=== PATIENT | male | born 1935 | race Caucasian/White ===

== ENCOUNTER 2017-01-25 20:11 | Inpatient (IN) ==
[2017-01-25] MEDS ORDERED: ASPIRIN PO STA (20:19)
[2017-01-25] MEDS ORDERED: CARDIZEM IV ONE (20:34)
--- NOTE | 2017-01-25 20:40 | PROVIDER DOCUMENTATION ---
HPI-Cardiac General - General Chief Complaint: B/P Problems Stated Complaint: ELEVATED BP Time Seen by Provider: 01/25/17 20:35 Allergies/Adverse Reactions: Patient Allergies Allergy/AdvReac Type Severity Reaction Status Date / Time niacin Allergy Intermediate burning Verified 01/25/17 20:49 Home Medications: Home Medication List Medication Instructions Recorded Confirmed Last Taken Type Diltiazem HCl [Diltiazem ER] 120 mg PO DAILY 08/03/16 01/25/17 01/25/17 History Losartan [Cozaar] 100 mg PO QPM 08/03/16 01/25/17 01/25/17 History Oxycodone HCl/Acetaminophen 0.5 each PO Q4H PRN PRN 08/03/16 01/25/17 01/25/17 History [Percocet 10-325 mg Tablet] Pantoprazole [Protonix] 40 mg PO DAILY 01/25/17 01/25/17 01/25/17 History - History of Present Illness-Cardiac Nature of Presenting Problem: 81 yom c/o chest pain for 45 min. Pt has hx AFib, aortic valve replacement, mitral valve repair. Pt was jsut sitting when chest pain started. Pt c/o pressure in his chest. Pt denies any, SOB, N/V. Quality of Pain: reports: pressure Severity in ED: mild Onset/Duration: 1/2 hour ago Timing: still present Context/Activities at Onset: reports: none Modifying Factors: improves with: nothing Palpitation Quality: fast/pounding heart beat History of arrythmia: reports: A-Fib Recent use of:: reports: no stimulants Aspirin Treatment Today: reports: no aspirin today, provided by ED Similar Symptoms Previously?: Yes Recently Seen Here or By Another Healthcare Provider: No Review of Systems - Adult - REVIEW OF SYSTEMS - ADULT Constitutional: reports: see HPI Eyes: reports: no symptoms reported Ears, Nose, Mouth & Throat: reports: no symptoms reported Cardiovascular: reports: see HPI, chest pain, edema, irregular heart rate Respiratory: reports: no symptoms reported Gastrointestinal: reports: no symptoms reported Genitourinary: reports: no symptoms reported Musculoskeletal: reports: no symptoms reported Integumentary: reports: no symptoms reported Neurological: reports: no symptoms reported All Other Systems: Reviewed and Negative Past History - Adult - PAST MEDICAL HISTORY-ADULT Review of Records: reports: Old Records Reviewed, Nursing Assessment Review, Medications Reviewed, Social history reviewed & non-contributory. Cardiovascular: reports: A-Fib, HTN, heart valve problem, hyperlipidemia Respiratory: reports: asthma Gastrointestinal: reports: GERD - IMMUNIZATION STATUS Childhood Immunizations: See Nurse Assessment Flu Vaccine: See Nurse Assessment - SOCIAL HISTORY Smoking: quit greater than 1 year Physical Exam-General - PHYSICAL EXAM-ADULT Initial Vital Signs Reviewed: Yes - CONSTITUTIONAL General Appearance: appears well, alert, no apparent distress - EYES Eyes: PERRL/EOMI, pink conjunctivae - HEAD, EARS, NOSE, MOUTH & THROAT HENMT: normocephalic/atraumatic, moist mucous membranes, normal ENT inspection - NECK Neck: non-tender, full range of motion, supple - RESPIRATORY Respiratory: chest non-tender, lungs clear, normal breath sounds, no pleuratic chest pain, no respiratory distress, no accessory muscle use - CARDIOVASCULAR Cardiovascular: normal peripheral pulses, no gallop, no JVD, no murmur, tachycardia, irregularly irregular - GASTROINTESTINAL (ABDOMEN) Abdominal Exam: normal bowel sounds, non tender, soft, no organomegaly, no pulsatile mass - LYMPHATIC Lymphatic: no adenopathy - MUSCULOSKELETAL Back Exam: normal inspection, no CVA tenderness, no vertebral tenderness Extremity: normal range of motion, non-tender, normal gait, normal inspection, no calf tenderness, normal capillary refill, pelvis stable, pedal edema - SKIN Integumentary: normal color, normal turgor, warm/dry - NEUROLOGIC Neurologic: grossly normal - PSYCHIATRIC Psych/Mental Status: oriented x 3 Progress - PLAN OF CARE/RESULTS Progress/Plan/Lab Results: Vital Signs - 8 hr 01/25/17 20:20 01/25/17 20:54 01/25/17 21:05 Pulse Rate 125 H 142 H 97 H Respiratory Rate 18 16 20 Blood Pressure 151/123 151/123 157/95 O2 Sat by Pulse Oximetry 96 97 95 01/25/17 22:00 01/25/17 22:03 Pulse Rate 90 92 H Respiratory Rate 18 23 Blood Pressure 159/101 139/98 O2 Sat by Pulse Oximetry 97 96 Laboratory Results - last 24 hr 01/25/17 01/25/17 01/25/17 20:15 20:15 20:15 WBC 10.78 RBC 5.50 Hgb 15.7 Hct 46.4 MCV 84.4 MCH 28.5 MCHC 33.8 RDW Std Deviation 14.2 Plt Count 182 MPV 13.0 H Immature Gran % (Auto) 0.3 Neut % (Auto) 49.3 Lymph % (Auto) 34.9 Maury % (Auto) 10.2 H Eos % (Auto) 4.8 Baso % (Auto) 0.5 Immature Gran # (Auto) 0.03 Neut # (Auto) 5.32 Lymph # (Auto) 3.76 H Maury # (Auto) 1.10 H Eos # (Auto) 0.52 Baso # (Auto) 0.05 PT INR PTT (Actin FS) D-Dimer 0.40 Sodium 141 Potassium 3.6 Chloride 98 Carbon Dioxide 28 Anion Gap 15 BUN 19 Creatinine 1.0 Estimated GFR/1.73 m2 > 60 BUN/Creatinine Ratio 19 Glucose 145 H Calculated Osmolality 286 Calcium 9.7 Magnesium 2.0 Total Bilirubin 0.67 AST 12 ALT 14 Alkaline Phosphatase 121 Creatine Kinase 51 Troponin T Iad-T-Imbstobvplw Pept Total Protein 7.8 Albumin 4.3 Globulin 3.5 Albumin/Globulin Ratio 1.2 01/25/17 01/25/17 01/25/17 20:15 20:15 20:15 WBC RBC Hgb Hct MCV MCH MCHC RDW Std Deviation Plt Count MPV Immature Gran % (Auto) Neut % (Auto) Lymph % (Auto) Maury % (Auto) Eos % (Auto) Baso % (Auto) Immature Gran # (Auto) Neut # (Auto) Lymph # (Auto) Maury # (Auto) Eos # (Auto) Baso # (Auto) PT 10.6 INR 1.01 PTT (Actin FS) 30.2 D-Dimer Sodium Potassium Chloride Carbon Dioxide Anion Gap BUN Creatinine Estimated GFR/1.73 m2 BUN/Creatinine Ratio Glucose Calculated Osmolality Calcium Magnesium Total Bilirubin AST ALT Alkaline Phosphatase Creatine Kinase Troponin T < 0.010 [id number] Pept 273 Total Protein Albumin Globulin Albumin/Globulin Ratio Orders Category Date Time Status Cardiac Monitoring DIRECTED Care 01/25/17 20:19 Active Saline Loc NOW Care 01/25/17 20:19 Active CHEST-2 VIEWS [RAD] Stat Exams 01/25/17 20:19 Taken CBC WITH ELECTRONIC DIFF [HEME] Stat Lab 01/25/17 20:15 Completed CK PROFILE [SP CHEM] Stat Lab 01/25/17 20:15 Completed COMPREHENSIVE METABOLIC PANEL [CHEM] Stat Lab 01/25/17 20:15 Completed D-DIMER [CHEM] Stat Lab 01/25/17 20:15 Completed MAGNESIUM [CHEM] Stat Lab 01/25/17 20:15 Completed PRO B-NATRIURETIC PEPTIDE Stat Lab 01/25/17 20:15 Completed PROTIME WITH INR [COAG] Stat Lab 01/25/17 20:15 Completed PTT [COAG] Stat Lab 01/25/17 20:15 Completed TROPONIN T Stat Lab 01/25/17 20:15 Completed Aspirin Med 01/25/17 20:19 Discontinued 325 mg PO STAT STA Diltiazem [Cardizem] Med 01/25/17 20:34 Discontinued 10 mg IV NOW ONE EKG [EKG] Stat Ther 01/25/17 20:16 Ordered Result Diagrams: 01/25/17 20:15 01/25/17 20:15 - XRAY 1 XRAY Study: Chest Impression: See EMR Report (Normal per radiologist) - CONSULTS/PCP/HOSPITALIST Notification #1 *Consult/PCP/Hospitalist*: akinsoto Time Discussed: 21:46 Consult Disposition: Will see in ED, Admit Departure - Departure Time of Disposition Decision: 21:46 DIAGNOSIS: Atrial fibrillation Qualifiers: Atrial fibrillation type: chronic Qualified Code(s): I48.2 - Chronic atrial fibrillation Chest pain Qualifiers: Chest pain type: unspecified Qualified Code(s): R07.9 - Chest pain, unspecified Disposition: ADMITTED INPATIENT 09 Certified Medical Emergency: Emergent Condition: Stable Referrals and Follow-Ups: Raymond Flores MD [Primary Care Provider] - Attestation - Physician/ KAILASH Attestation Patient care was provided by Advanced Practice Provider:: Yes Advanced Practice Provider:: Maurice Bear Advanced Practice Provider documentation review:: The Mid-level provider documentation, treatment plan and medical decision making was reviewed by the physician who agrees with all treatment and medical decision making by the MLP.
[2017-01-25 20:53] LABS: MANUAL DIFF NEEDED? NO
[2017-01-25 21:00] LABS: BASO% 0.5 % (0.0-0.8); EOS# 0.52 X1000 (0.0-0.7); EOS% 4.8 % (0.0-10.0); HEMATOCRIT 46.4 % (42.0-52.0); HEMOGLOBIN 15.7 g/dL (14.0-18.0); IMM GRAN# 0.03 X1000 (0.0-0.04); IMM GRAN% 0.3 % (0.0-0.5); LYMPH# 3.76 X1000 (1.2-3.4); LYMPH% 34.9 % (20.5-51.1); MCH 28.5 PG (27-31); MCHC 33.8 g/dL (33-37); MCV 84.4 FL (81-99); MONO% 10.2 % (1.7-9.3); NEUT% 49.3 % (42.2-75.2); PLT 182 X1000 (130-400)
[2017-01-25 21:06] LABS: INR 1.01; PROTIME 10.6 Seconds (9.2-11.7); PTT 30.2 Seconds (22.0-36.0)
[2017-01-25 21:14] LABS: AGAP 15; ALBUMIN 4.3 g/dL (3.5-5.0); ALKALINE PHOSPHATASE 121 U/L (32-122); BUN 19 mg/dL (8-22); CALCIUM 9.7 mg/dL (8.8-10.2); CHLORIDE 98 mmol/L (98-107); CK PROFILE 51 U/L (24-204); COSMO 286; GOT 12 U/L (10-34); GPT 14 U/L (10-44); POTASSIUM 3.6 mmol/L (3.5-5.1); SODIUM 141 mmol/L (136-145); TCO2 28 mmol/L (25-35); TOTAL BILIRUBIN 0.67 mg/dL (0.20-1.00); TOTAL PROTEIN 7.8 g/dL (6.3-8.3)
[2017-01-26] MEDS ORDERED: ZOFRAN IV PRN (00:14)
[2017-01-26] MEDS ORDERED: TYLENOL PO PRN (00:14)
[2017-01-26] MEDS ORDERED: PERCOCET-10 PO PRN (00:14)
[2017-01-26] MEDS: CARDIZEM CD PO SCH ×2 (00:49→09:35)
[2017-01-26] MEDS ORDERED: PNEUMOVAX 23 IM ONE (05:13)
[2017-01-26 05:30] LABS: MANUAL DIFF NEEDED? NO
--- NOTE | 2017-01-26 05:34 | EKG Report ---
Test Performed on : 01/25/2017 8:21:17 PM Test Reason : palpitaions Blood Pressure : / mmHG Vent. Rate : 137 BPM Atrial Rate : 300 BPM P-R Int : 000 ms QRS Dur : 074 ms QT Int : 306 ms P-R-T Axes : 000 029 185 degrees QTc Int : 462 ms Atrial flutter. with variable AV block. Left ventricular hypertrophy with repolarization abnormality Cannot rule out Septal infarct , age undetermined Abnormal ECG When compared with ECG of 03-AUG-2016 09:35, Atrial flutter. has replaced Sinus rhythm. Vent. rate has increased BY 72 BPM Minimal criteria for Septal infarct are now present ST now depressed in Inferior leads ST now depressed in Lateral leads Unconfirmed Result
[2017-01-26 05:36] LABS: BASO% 0.4 % (0.0-0.8); EOS% 5.3 % (0.0-10.0); HEMATOCRIT 44.6 % (42.0-52.0); HEMOGLOBIN 14.9 g/dL (14.0-18.0); LYMPH# 3.06 X1000 (1.2-3.4); LYMPH% 32.6 % (20.5-51.1); MCH 28.6 PG (27-31); MCHC 33.4 g/dL (33-37); MCV 85.6 FL (81-99); MONO# 0.98 X1000 (0.11-0.59); MONO% 10.4 % (1.7-9.3); MPV 13.2 FL (7.4-10.4); NEUT% 51.3 % (42.2-75.2); PLT 178 X1000 (130-400); RBC 5.21 XMIL (4.7-6.1)
[2017-01-26 05:55] LABS: AGAP 14; BUN 22 mg/dL (8-22); CALCIUM 9.3 mg/dL (8.8-10.2); CHLORIDE 101 mmol/L (98-107); COSMO 291; MAGNESIUM 2.1 mg/dL (1.5-2.7); POTASSIUM 3.6 mmol/L (3.5-5.1); SODIUM 143 mmol/L (136-145); TCO2 28 mmol/L (25-35)
--- NOTE | 2017-01-26 06:04 | HISTORY AND PHYSICAL ---
PRIMARY CARE PROVIDER: Dr. Raymond Flores. KOSHER DIETARY SERVICE MANAGER: Was previously Dr. Mccurdy. CHIEF COMPLAINT: Palpitations and chest pain. HISTORY OF PRESENT ILLNESS: Mr. Kathleen is a 81-year-old male, who has a past medical history most notable for atrial fibrillation, hypertension, aortic valve replacement, and mitral valve repair. He presented to the ER this evening at 8 p.m., with complaints of chest pain and palpitations. He reports that he was sitting on the couch, when he began feeling funny. He could feel his heart racing, and did have some tightness across his entire chest, left and right. Patient's , who is a registered nurse, states that his heart rate was very elevated upon palpation. Patient did report that during this time, he did try to obtain his blood pressure on a home monitor, though was unable to do so. He denied any dizziness, lightheadedness, shortness of breath, nausea or vomiting, or indigestion with his chest pain. On arrival to the ER, the patient's EKG showed atrial fibrillation, at a rate of 137. He was given a one time dose of 10 mg of Cardizem IV push. At this time, he has converted to a sinus rhythm. He states also that his previous chest tightness that he reported has gone as well. He has not had any recurrent episodes of this. At this time, we will admit him for further evaluation of his atrial fibrillation, and place him for a cardiology consult in the morning. REVIEW OF SYSTEMS: A 12-point review of systems was conducted with the patient. All were negative, except for pertinent positives mentioned in the above HPI. PAST MEDICAL HISTORY: 1. Atrial fibrillation. 2. Hypertension. 3. Peripheral vascular disease. 4. Chronic back pain and left hip pain, secondary to a previous left pelvic fracture. 5. Gastroesophageal reflux disease. PAST SURGICAL HISTORY: 1. Aortic valve replacement due to aortic stenosis. 2. Mitral valve repair, secondary to mitral regurgitation and leaflet abnormality. 3. Bilateral renal artery stents. 4. Bilateral cataract surgery. 5. Open reduction and internal fixation of left pelvis. SOCIAL HISTORY: The patient reports that he was a 2 pack per day smoker for approximately 30 years, and quit smoking in 1984. He denies any alcohol or illicit drug use, though does report that he uses hemp oil for his chronic left hip pain. FAMILY HISTORY: Positive for asthma in his mother. His father has a history of coronary artery disease, as well as had to have a mitral valve repair secondary to rheumatic heart disease. He also has a sister who had a mitral valve repair secondary to rheumatic heart disease as well. ALLERGIES: Patient reports allergy to niacin. HOME MEDICATIONS: 1. Protonix 40 mg p.o. daily. 2. Percocet 10 mg. The patient takes half a tablet every 4 hours as needed for pain. 3. Cozaar 100 mg p.o. q.p.m. 4. Diltiazem extended release 120 mg p.o. daily. 5. Lasix 20 mg p.o. daily as needed. Also, there is a question to whether or not the patient is still currently taking Xarelto. We have asked that his bring his medication bottles in the morning so that we can update and confirm his home medication list. DIAGNOSTIC DATA AND LABORATORY RESULTS: White blood cell count 10.7, hemoglobin 15.7, hematocrit 46.4, platelet count is 182,000. PT 10.6, INR 1.01, PTT 30.2, D-dimer 0.4. Sodium 141, potassium 3.6, chloride 98, bicarbonate 28, BUN 19, creatinine 1, glucose 145, calcium 9.7 , magnesium 2. Liver function tests are within normal limits. CK 51. Troponin was less than 0.01. ProBNP was 273. Chest x-ray shows no acute abnormalities. We are awaiting the official radiology over-read. EKG showed atrial fibrillation, at a rate of 137, QTc was 462. PHYSICAL EXAMINATION: VITAL SIGNS: Heart rate 84, respirations 19, blood pressure 139/98, oxygen saturation 96% on room air. GENERAL: Mr. Kathleen is a pleasant 81-year-old male who is resting comfortably in the ER stretcher. He was awake, alert, and able to answer all questions appropriately. HEENT: Head is atraumatic, normocephalic. Pupils are equal, round, reactive to light for 3 mm bilaterally and brisk. Oral mucosa was moist. Oropharynx clear. NECK: Supple. Trachea midline. No JVD noted. No carotid bruits noted on auscultation bilaterally. CARDIOVASCULAR: Patient has normal S1, S2. There is a systolic murmur noted as well. At this time, patient's heart rate is of regular rate and rhythm. PULMONARY: Patient has symmetrical chest expansion bilaterally. Lung sounds are clear to auscultation in bilateral lung humphrey. ABDOMEN: Soft, nontender, nondistended. Bowel sounds are present in all 4 quadrants. EXTREMITIES: No cyanosis, clubbing, or edema noted. Pulse, motor, and sensory were intact in all extremities. Pedal pulses were 3+ bilaterally. SKIN: [place], warm, dry, and intact. No lesions or sores noted. NEUROLOGICAL: Patient is alert, oriented x4. Cranial nerves 2-12 are grossly intact. ASSESSMENT AND PLAN: 1. Atrial fibrillation. At this time, the patient has converted to a sinus rhythm. We will increase his diltiazem extended release 120 mg to twice a day, and give him his first dose tonight. There was question to whether or not the patient currently still takes Xarelto, given his history of atrial fibrillation. We will go ahead and place him on Xarelto 20 mg p.o. daily. I have placed a consult with cardiology, and await their evaluation and further recommendations, and monitor his cardiac status closely. 2. Hypertension. Will continue with his prescribed blood pressure medicines of Cardizem, as well as Cozaar. 3. Chronic pain. Will continue with the patient's Percocet q.4 hours p.r.n. as needed. 4. Gastroesophageal reflux disease. We will continue the patient's Protonix [address] him on CICU with telemetry. He will have vital signs q.4 hours. DVT prophylaxis is currently provided with Xarelto. We will do strict intake and output. He will be on a heart- healthy diet. We will do a series of cardiac enzymes and repeat an EKG in the morning, though his first set of enzymes were negative and the patient has not been reporting any chest pain at this time. He will also be placed on telemetry as well. Further orders and recommendations pending hospital course, diagnostic studies, and physician evaluation. Dictated by MARCELINO Valdez for Carolynn Barber MD Patient seen and examined by me;plan discussed with STREET SWEEPER. cc: MD Raymond Sweeney MD MTDD
[2017-01-26] MEDS ORDERED: PRILOSEC PO SCH (07:00)
--- NOTE | 2017-01-26 07:12 | EKG Report ---
Test Performed on : 01/26/2017 06:50:57 AM Test Reason : Atrial Fibrillation Blood Pressure : / mmHG Vent. Rate : 068 BPM Atrial Rate : 068 BPM P-R Int : 178 ms QRS Dur : 090 ms QT Int : 416 ms P-R-T Axes : 027 021 140 degrees QTc Int : 442 ms Normal sinus rhythm. Left ventricular hypertrophy with repolarization abnormality Abnormal ECG When compared with ECG of 25-JAN-2017 20:21, (Unconfirmed) Sinus rhythm. has replaced Atrial flutter. Vent. rate has decreased BY 69 BPM Minimal criteria for Septal infarct are no longer present ST no longer depressed in Inferior leads ST no longer depressed in Lateral leads Confirmed by Syeda CHERRY, Tung Genao ([id number]) on 01/26/2017 6:52:43 PM
--- NOTE | 2017-01-26 08:19 | Diag Imaging Result Document ---
PROCEDURE NAME: CHEST-2 VIEWS - 01/25/2017 TWO VIEWS OF THE CHEST: FINDINGS: There are sternotomy wires. There is an aortic valve prosthesis. There is some fibrotic appearing opacity in the lung bases which has not changed since 08/03/2016. IMPRESSION: Stable chest.
[2017-01-26] MEDS ORDERED: ELIQUIS PO SCH (09:15)
--- NOTE | 2017-01-26 10:09 | CONSULTATION ---
DATE OF CONSULTATION: 01/26/2017 REQUESTING PHYSICIAN: Hospitalist Service REASON FOR CONSULTATION: Atrial fibrillation with rapid response. HISTORY OF PRESENT ILLNESS: Mr. Kathleen is a 81-year-old male who was normally followed by Dr. Mccurdy. He is a patient of Dr. Raymond Flores. He presented to the Emergency Room yesterday, 01/25/2017, at about 8:00 p.m. with complaints of feeling chest tightness and palpitations. Upon presentation he was found in atrial fibrillation with a rapid response. He was given Cardizem and eventually he converted back to Normal Sinus rhythm. EKG done at 8 o'clock this morning shows that he is in sinus rhythm and he is not having any more complaints. PAST MEDICAL HISTORY: His past history is positive for a brief episode of paroxysmal atrial fibrillation in the past. He has had hypertension. He has severe valvular disease involving the aortic valve and the mitral valve. He has had renal artery stenosis. He has had gastric reflux. PAST SURGICAL HISTORY: Positive for open heart surgery which was performed at [facility] in 2012. At that time they replaced the aortic valve with a pericardial magna 21 mm bioprosthesis on 03/09/2013. They also did a repair of the mitral valve. The patient has had stents to the renal arteries. The patient has had cataract surgery. He has also had a fractured pelvis in the past. SOCIAL HISTORY: He is retired from [employer] in 1992. He quit smoking in 1984. for 63 years. He has four grown children. FAMILY HISTORY: Positive for coronary heart disease. ALLERGIES: He is allergic to niacin. HOME MEDICATION: His home medications at the time of this admission include: Toprol XL 25 mg daily, Cardizem CD 240 mg daily, Protonix 40 mg daily, losartan 100 mg daily, temazepam 15 mg daily, and oxycodone. REVIEW OF SYSTEMS: He is limited to ambulate because of chronic back discomfort. No other issues. No chest pains. No pervious diagnosis of significant coronary artery disease. He has had a heart cath in the past that has shown mild disease. PHYSICAL EXAMINATION: VITAL SIGNS: Today his blood pressure is 129/71, temperature 98.1, pulse 69, and respirations 12. GENERAL: He is awake, alert, oriented, and in no distress. HEENT: Unremarkable. CHEST: Clear to auscultation and percussion. CARDIOVASCULAR: Heart sounds are regular and rhythmic. No gallop or murmur. ABDOMEN: Nontender. No masses. No hepatomegaly. EXTREMITIES: The extremities show decreased pulses. No edema. NEUROLOGICAL: He moves all four extremities and follows commands. LABORATORY DATA: His chest x-ray on 01/25/2017 showed a stable chest. His blood work shows a white count of 9,380, hemoglobin 14.9, and hematocrit 44.6. PT and PTT are normal. D-dimer is normal. Sodium, potassium, BUN, and creatinine are normal. Troponin was done twice and was negative. Pro BNP is normal. IMPRESSION: 1. Patient presenting with paroxysmal atrial fibrillation. He has converted to sinus rhythm. 2. History of severe valvular disease status-post aortic valve replacement and mitral valve repair. 3. History of mild coronary artery disease by heart catheterization in 2012. 4. History of vascular disease involving the renal arteries status-post stents. 5. History of a broken pelvis. RECOMMENDATIONS: At this point in time he is stable and back in sinus rhythm. I would suggest to offer a long-term anticoagulant like Eliquis or Xarelto. He may check with his pharmacist and see if that medication would be covered and if not we can fall back on warfarin and monitor him at the office. At this point in time no further testing appears to be necessary. He has ruled out for a myocardial infarction. He is not having any ongoing chest pains. I do not recommend any further testing. We will arrange for a follow-up at my office and further intervention will be done after the office follow up. Please call me if you have any questions pertaining to this evaluation. cc: Jlaeel Carmona MD MTDBryanna
[2017-01-26 11:12] VITALS: BP 140/96
[2017-01-26] MEDS ORDERED: XARELTO PO SCH (17:00)
[2017-01-26] MEDS ORDERED: COZAAR PO SCH (21:00)
--- NOTE | 2017-01-27 11:55 | DISCHARGE SUMMARY ---
ADMISSION DATE: 01/25/2017 DISCHARGE DATE: 01/26/2017 CONSULTATIONS: Dr. Carmona of Cardiology. PERTINENT PROCEDURES: 1. EKG on admission showed atrial flutter with a variable AV block, left ventricular hypertrophy with repolarization abnormality at a rate of 137. 2. Followup EKG showed normal sinus rhythm with LVH. DISCHARGE DIAGNOSES: 1. Paroxysmal atrial fibrillation on admission, now converted to sinus rhythm. The patient is being discharged on Eliquis and Cardizem. He will follow up with Dr. Carmona as well as his primary care physician, Dr. Raymond Flores. 2. Hypertension. Continue home medications. 3. Chronic pain. Continue home medications. 4. Gastroesophageal reflux disease. Continue with patient's home proton pump inhibiter. 5. Coronary artery disease. Stable. Patient was ruled out for myocardial infarction with cardiac enzymes. HOSPITAL COURSE: Ms. Kathleen is a 81-year-old male who has a past medical history of atrial fibrillation, hypertension, aortic valve replacement, and mitral valve repair, who presented to the ED with complaints of chest pain and palpitations. He reports sitting on the couch when he began to feel funny. He could feel his heart racing. He did have some tightness across his entire chest, left and right. EKG that was done in the ED showed atrial fibrillation with a rate of 137. The patient was given an IV bolus of Cardizem and patient converted to sinus rhythm. His chest tightness resolved. Patient was admitted for further evaluation of his atrial fibrillation with a Cardiology consult. Dr. Carmona suggested patient be placed on long-term anticoagulation such as Eliquis or Xarelto and that, at this point, since the patient converted to normal sinus rhythm, no further testing appeared to be necessary. He was ruled out for [place] with cardiac enzymes. He was not having any ongoing chest pain. Followup will be made with Dr. Carmona on an outpatient basis and any further intervention will be done after the office followup. Patient is being discharged home today. VITAL SIGNS: Temperature is 97.7 degrees, heart rate 77, respirations 14, blood pressure 140/96, O2 is 98% on room air. DISCHARGE MEDICATIONS: 1. [place] 5 mg p.o. b.i.d. 2. Cardizem 240 mg p.o. daily. 3. Cozaar 100 mg p.o. q.p.m. 4. Percocet 10/325 one-half tablet p.o. q.4 hours p.r.n. pain. 5. Protonix 40 mg p.o. daily. 6. Donepezil 15 mg p.o. DISCHARGE DIET: Healthy Heart. FOLLOWUP: Patient is being discharged home with his . He can follow up with his primary care physician, Dr. Raymond Flores, as well as Dr. Carmona with Cardiology. Patient can return to the ED for any worsening of symptoms. He has been educated for the new drug that he will be started on, Eliquis, and signs and symptoms to watch out for, bleeding. The patient can return to the ED for any worsening of symptoms. DISCHARGE TIME: Thirty minutes. Dictated by MARCELINO Juarez for Mario Brown MD cc: MD Raymond Tom MD Luis N. Villanueva, MD
== END 2017-01-26 16:05 | disposition home or self-care (01) ==
LOC: ED 20:11 → SUATTDRO 23:22 → 3S 23:22
PROVIDERS: ATTEND Internal Medicine

== ENCOUNTER 2019-01-22 09:26 | Inpatient (IN) ==
[2019-01-22 11:11] LABS: BASO# 0.03 X1000 (0.0-0.2); BASO% 0.3 % (0.0-0.8); EOS# 0.38 X1000 (0.0-0.7); EOS% 3.2 % (0.0-10.0); HEMATOCRIT 48.3 % (42.0-52.0); HEMOGLOBIN 15.8 g/dL (14.0-18.0); IMM GRAN# 0.03 X1000 (0.0-0.04); IMM GRAN% 0.3 % (0.0-0.5); LYMPH# 2.46 X1000 (1.2-3.4); LYMPH% 20.5 % (20.5-51.1); MCH 26.6 PG (27-31); MCHC 32.7 g/dL (33-37); MCV 81.2 FL (81-99); MONO# 1.15 X1000 (0.11-0.59); MONO% 9.6 % (1.7-9.3); MPV 13.3 FL (7.4-10.4); NEUT# 7.95 X1000 (1.4-6.5); NEUT% 66.1 % (42.2-75.2); PLT 174 X1000 (130-400); RBC 5.95 XMIL (4.7-6.1); RDW 15.8 % (11.5-14.5)
[2019-01-22 11:14] LABS: AGAP 13; ALB/GLOB RATIO 1.3; ALBUMIN 4.4 g/dL (3.5-5.0); ALKALINE PHOSPHATASE 115 U/L (32-122); AMYLASE 22 U/L (20-200); BUN 17 mg/dL (8-22); CALCIUM 10.5 mg/dL (8.8-10.2); CHLORIDE 100 mmol/L (98-107); COSMO 287; ESTIMATED GFR > 60; GLUCOSE 138 mg/dL (70-104); GOT 11 U/L (10-34); GPT 10 U/L (10-44); LIPASE 27 U/L (13-60); POTASSIUM 4.1 mmol/L (3.5-5.1); SODIUM 142 mmol/L (136-145); TCO2 29 mmol/L (25-35); TOTAL BILIRUBIN 0.59 mg/dL (0.20-1.00); TOTAL PROTEIN 7.7 g/dL (6.3-8.3)
--- NOTE | 2019-01-22 11:23 | Diag Imaging Result Doc PS360 ---
FLAT/UPRIGHT ABD/1 VIEW CHEST - 01/22/2019 INDICATION: ruq pain TECHNIQUE: COMPARISON: 08/07/2018 FINDINGS: Stable sternotomy changes. Heart size and pulmonary vascularity is normal. No infiltrates or edema. There is a nonobstructive bowel gas pattern. No free air or abnormal calcifications. IMPRESSION: No acute process. Electronically signed by Jude Durand 01/22/2019 11:21 AM
[2019-01-22] MEDS ORDERED: DILAUDID IV ONE (12:01)
[2019-01-22] MEDS ORDERED: ZOFRAN IV ONE (12:01)
--- NOTE | 2019-01-22 14:39 | Diag Imaging Result Doc PS360 ---
CT ABD/PELVIS W/IV CONT ONLY - 01/22/2019 INDICATION: ruq pain COMPARISON: 08/03/2016 FINDINGS: There is some stable chronic atelectasis at the posterior surface of the right lower lobe. No new infiltrates. There are gallstones in the gallbladder. The gallbladder is distended and there is some wall thickening. No biliary dilation. Stable benign cysts in the liver. The pancreas, spleen, adrenals, and kidneys are normal. No bowel obstruction or inflammation. Urinary bladder, prostate, and rectum are normal. There are numerous diverticula of the sigmoid colon. 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 No aneurysm or dissection. Normal appendix. Stable stents in the renal artery origins. Stable old deformities of the pelvis. There are moderate degenerative changes of the spine. No acute or suspicious bony lesion. IMPRESSION: Findings consistent with cholecystitis. This report was discussed with Dr. Juárez on 01/22/2019 at 2:30 PM and was readback. This exam was performed using automated exposure control, adjustment of mA or kV according to patient size, and/or use of iterative reconstruction technique Electronically signed by Jude Durand 01/22/2019 2:37 PM
--- NOTE | 2019-01-22 14:48 | PROVIDER DOCUMENTATION ---
This chart was entered by Belkys Corley Scribe, acting as scribe for Adrian Juárez DO. HPI-Abdominal Pain/GI Problem - General Chief Complaint: Abdominal Pain Stated Complaint: N/V STOMACH PAIN HIGH BP Time Seen by Provider: 01/22/19 09:37 Source: patient Allergies/Adverse Reactions: Patient Allergies Allergy/AdvReac Type Severity Reaction Status Date / Time niacin Allergy Intermediate burning Verified 01/22/19 09:32 Home Medications: Home Medication List Medication Instructions Recorded Confirmed Last Taken Type Losartan [Cozaar] 100 mg PO QPM 08/03/16 08/07/18 01/25/17 History Diltiazem HCl [Diltiazem 24Hr ER 240 mg PO DAILY #60 01/26/17 08/07/18 01/25/17 Rx ([place])] Cephalexin [Keflex] 500 mg PO 4XDAY #20 cap 08/07/18 Unknown Rx Diltiazem HCl [Cartia Xt] 120 mg PO DAILY 08/07/18 08/07/18 Unknown History Diltiazem HCl [Dilt-Xr] 240 mg PO DAILY 08/07/18 08/07/18 Unknown History Metformin HCl 500 mg PO BID #30 tab 08/07/18 Unknown Rx - History of Present Illness-ABD Nature of Presenting Problems: 83 yom presents to the ed with c/o RUQ pain radiaiting to rt chest wall onset 1 week prior. pt sts pain is intermittent and has had n/v x2 during the week. pt on exam is nontoxic in appearance Abdominal Pain Onset Location: reports: RUQ Pain Radiation: reports: chest (rt chest wall) Quality of Pain: reports: cramping Severity in ED: reports: moderate Onset/Duration: reports: 1 week ago Timing: reports: still present, intermittent Activities at Onset: reports: light activity Exposure to sick contacts?: No Modifying Factors: improves with: nothing Associated Symptoms: reports: chest pain (rt sided chest wall), nausea, vomiting . denies: back/neck pain, diarrhea, dizziness, fever/chills, headaches, shortness of breath Last BM: last night Dark Stools Present?: reports: none noticed Rectal Bleeding: reports: none # of Diarrhea Episodes: 0 Rectal Pain: reports: none # of Vomiting Episodes: 2 Emesis Description: reports: other (food) Bruising or Bleeding Gums?: No Similar Symptoms Previously?: No Recently seen or treated by another doctor?: No Review of Systems - Adult - REVIEW OF SYSTEMS - ADULT Constitutional: denies: chills, fever Eyes: reports: no symptoms reported Ears, Nose, Mouth & Throat: reports: no symptoms reported Cardiovascular: reports: see HPI, chest pain (r sided chest wall). denies: palpitations, syncope Respiratory: denies: cough, shortness of breath, wheezing Gastrointestinal: reports: see HPI, abdominal pain (ruq), nausea, vomiting (x2). denies: hematemesis, diarrhea Genitourinary: reports: no symptoms reported Musculoskeletal: denies: back pain, neck pain Integumentary: reports: no symptoms reported Neurological: denies: dizziness/vertigo, headache/migraines Psychiatric: reports: no symptoms reported Endocrine: reports: no symptoms reported Hematologic/Lymphatic: reports: no symptoms reported Allergic/Immunologic: reports: no symptoms reported All Other Systems: Reviewed and Negative Past History - Adult - PAST MEDICAL HISTORY-ADULT Review of Records: reports: Nursing Assessment Review, Medications Reviewed Major Childhood Illnesses: reports: denies history Cardiovascular: reports: A-Fib, HTN, heart valve problem, hyperlipidemia Respiratory: reports: asthma Gastrointestinal: reports: GERD Obstetrical/Gynecological: reports: denies history Genitourinary: reports: denies history Musculoskeletal: reports: denies history Hand Dominance: Right Handed Neurological: reports: denies history Endocrine/Immune: reports: denies history Other Conditions: reports: denies history - PRIOR SURGERIES/PROCEDURES Surgical/Procedure History: reports: other (cataract removal) - IMMUNIZATION STATUS Childhood Immunizations: See Nurse Assessment Flu Vaccine: See Nurse Assessment - FAMILY HISTORY Family History: reviewed, not pertinent - SOCIAL HISTORY Smoking: cigarettes, less than 1 pack/day Provider spent 3-5 mins advising pt. on dangers of tobacco.: Discussed manners to quit use, and f/u contacts for add'l counseling. Substance Use: alcohol Alcohol Use Frequency: 3-4 times a week Number of drinks per typical drinking period:: 3-4 drinks Living Situation: family Physical Exam-General - PHYSICAL EXAM-ADULT Initial Vital Signs Reviewed: Yes - CONSTITUTIONAL General Appearance: appears well, alert, no apparent distress - EYES Eyes: PERRL/EOMI, pink conjunctivae - HEAD, EARS, NOSE, MOUTH & THROAT HENMT: moist mucous membranes, normal ENT inspection - NECK Neck: non-tender, full range of motion, supple, normal inspection - RESPIRATORY Respiratory: chest non-tender, lungs clear, normal breath sounds - CARDIOVASCULAR Cardiovascular: normal peripheral pulses, regular rate, rhythm, no edema, no gallop, no JVD, other (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) - CHEST (BREASTS) Chest/Breast: tenderness (rt upper chest wall) - GASTROINTESTINAL (ABDOMEN) Abdominal Exam: normal bowel sounds, soft, no organomegaly, no pulsatile mass, tenderness (ruq) - LYMPHATIC Lymphatic: no adenopathy - MUSCULOSKELETAL Back Exam: normal inspection, no CVA tenderness, no vertebral tenderness Extremity: normal range of motion, non-tender, normal inspection, no pedal edema , no calf tenderness, normal capillary refill - SKIN Integumentary: normal color, normal turgor, warm/dry - NEUROLOGIC Neurologic: grossly normal, no motor/sensory deficits - PSYCHIATRIC Psych/Mental Status: normal mood/affect, normal thought content, normal thought process, oriented x 3 Progress - PLAN OF CARE/RESULTS Progress/Plan/Lab Results: Vital Signs - 8 hr 01/22/19 09:29 Temperature 97.8 F Pulse Rate 92 H Respiratory Rate 16 Blood Pressure 170/78 O2 Sat by Pulse Oximetry 97 Orders Category Date Time Status FLAT/UPRIGHT ABD/1 VIEW CHEST [RAD] Stat Exams 01/22/19 10:34 Ordered AMYLASE [CHEM] Stat Lab 01/22/19 10:33 Uncollected CBC WITH ELECTRONIC DIFF [HEME] Stat Lab 01/22/19 10:32 Uncollected COMPREHENSIVE METABOLIC PANEL [CHEM] Stat Lab 01/22/19 10:32 Uncollected LIPASE [CHEM] Stat Lab 01/22/19 10:33 Uncollected Result Diagrams: 01/22/19 09:45 01/22/19 09:45 - REASSESSMENT Reassessment #1 Time Reassessed: 11:47 Status: improving Reassessment Comment: at bedside Reassessment #2 Time Reassessed: 12:58 (pt c/o chest pain tightness ) Status: worsening Reassessment Comment: at bedside - EKG 1 Time of EKG reading by physician:: 12:44 EKG Read and Signed by:: Adrian Juárez EKG Interpretation (*Must complete 3 of following elements*): Abnormal Rate: 82 Rhythm: sinus rhythm w/occ pvc Colton: normal QRS: PVC's SC Interval: normal ST Wave: normal Comments: septal infarct, age undetermined - XRAY 1 XRAY: Bilateral XRAY Study: Abdomen Impression: See EMR Report (FLAT/UPRIGHT ABD/1 VIEW CHEST - 01/22/2019 INDICATION: ruq pain TECHNIQUE: COMPARISON: 08/07/2018 FINDINGS: Stable sternotomy changes. Heart size and pulmonary vascularity is normal. No infiltrates or edema. There is a nonobstructive bowel gas pattern. No free air or abnormal calcifications. IMPRESSION: No acute process. Electronically signed by Jude Durand 01/22/2019 11:21 AM 01/22/19 1121 Interpreting Physician: Jude Durand MD Dictated Date/Time: 01/22/19 1120 cc: Adrian Juárez DO; Abiola Madera MD) - CT/MRI 1 CT Study: Abdomen, Pelvis Impression: See EMR Report (CT ABD/PELVIS W/IV CONT ONLY - 01/22/2019 INDICATION: ruq pain COMPARISON: 08/03/2016 FINDINGS: There is some stable chronic atelectasis at the posterior surface of the right lower lobe. No new infiltrates. There are gallstones in the gallbladder. The gallbladder is distended and there is some wall thickening. No biliary dilation. Stable benign cysts in the liver. The pancreas, spleen, adrenals, and kidneys are normal. No bowel obstruction or inflammation. Urinary bladder, prostate, and rectum are normal. There are numerous diverticula of the sigmoid colon. 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 No aneurysm or dissection. Normal appendix. Stable stents in the renal artery origins. Stable old deformities of the pelvis. There are moderate degenerative changes of the spine. No acute or suspicious bony lesion. IMPRESSION: Findings consistent wi th cholecystitis. This report was discussed with Dr. Juárez on 01/22/2019 at 2:30 PM and was readback. This exam was performed using automated exposure control, adjustment of mA or kV according to patient size, and/or use of iterative reconstruction technique Electronically signed by Jude Durand 01/22/2019 2:37 PM 01/22/19 1437 Interpreting Physician: Jude Durand MD Dictated Date/Time: 01/22/19 1422 cc: Adrian Juárez DO; Abiola Madera MD) - CONSULTS/PCP/HOSPITALIST Notification #1 *Consult/PCP/Hospitalist*: hospitalist Time Discussed: 14:41 Consult Disposition: Admit Departure - Departure Date of Disposition Decision: 01/22/19 Time of Disposition Decision: 14:47 DIAGNOSIS: Abdominal pain, Tobacco use disorder Disposition: ADMITTED INPATIENT 09 Certified Medical Emergency: Emergent Condition: Stable Referrals and Follow-Ups: Abiola Madrea MD [Primary Care Provider] - - Critical Care Note This patient required my direct & personal management of CC.: No Attestation - Physician/ KAILASH Attestation Patient care was provided by Advanced Practice Provider:: No The physician spent face to face time with patient:: Yes Advanced Practice Provider documentation review:: Supervising physician onsite and consulted in the evaluation and care of this patient. The physician did have a face to face encounter with the patient. This chart was documented by the indicated scribe, (Belkys Corley Scribe) and accurately reflects the services I performed and decisions made by me, Adrian Edmondson DO, as attested by the provider's signature.
[2019-01-22] MEDS ORDERED: LR 1,000 ML IV ONE (15:24)
[2019-01-22] MEDS ORDERED: ZOSYN 3.375 GM in NS 50 ML IV ONE (15:24)
--- NOTE | 2019-01-22 18:01 | HISTORY AND PHYSICAL ---
Mr. Rick Kathleen is an 83-year-old white male who for the last 3 weeks has not felt well and certainly over the last week. He was hospitalized in [facility] at the request of his family physician to evaluate his heart because of some chest pain and dizziness. He underwent a cardiac catheterization and evaluation at [facility] and was discharged home and presents to our emergency department today with several day history of right upper quadrant pain radiating to his back. He did not sleep well last night. CT scan of his abdomen and pelvis as part of his evaluation suggested acute cholecystitis. We were asked to evaluate him. PAST MEDICAL HISTORY: He has a pig aortic valve. He had recent evaluation of his cardiac function on 01/11/2019 including a cardiac catheterization at [facility]. He is a diabetic. MEDICATIONS: Metoprolol 1 p.o. daily, Crestor 1 p.o. daily, 81 mg aspirin daily, diltiazem 240 mg p.o. daily, glimepiride 1 p.o. daily, losartan 100 mg p.o. daily, metformin 1 p.o. b.i.d. ALLERGIES: No known drug allergies. SOCIAL HISTORY: His is at the bedside and actually I removed her gallbladder in the past. He does not smoke. REVIEW OF SYSTEMS: A 14-point review of systems was performed and was essentially negative except for the history of present illness. PHYSICAL EXAMINATION: GENERAL: Mr. Kathleen looks younger than the stated age. He is slightly overweight and he is in no acute distress. He is hemodynamically satisfactory. HEENT: No jaundice. No oral lesions. Satisfactory dentition. No cervical or supraclavicular lymphadenopathy. HEART: Regular rate. He has well-healed median sternotomy scar. LUNGS: Clear. ABDOMEN: Was slightly protuberant. I could not feel his gallbladder. He had no previous scar. No evidence of hernia. No costovertebral tenderness. RECTAL: Exam was not performed. He does have palpable femoral pulses. He had no peripheral edema. NEUROLOGIC: Had no focal deficits. DATA: I reviewed his CT scan and his gallbladder is dilated and there is some inflammation around it consistent with acute cholecystitis. IMPRESSION: Acute cholecystitis. PLAN: Laparoscopic, possible open cholecystectomy this afternoon. I have discussed the procedure in detail with him including its risks of bleeding, infection, injury to the extrahepatic bile ducts requiring reoperation, conversion of laparoscopic to open cholecystectomy, bile leak requiring reoperation for drainage, and injury to intraabdominal contents with trocar placement. They understand the need for surgery and its risks and they want to proceed. cc: Elisabeth Corley MD MTDD
[2019-01-22] MEDS ORDERED: SODIUM CHLORIDE 0.9% ONE (18:53)
[2019-01-22] MEDS ORDERED: SENSORCAINE-MPF 0.5%/EPI 1:200,000 ONE (18:53)
[2019-01-22] MEDS ORDERED: LR 1,000 ML ONE (18:54)
[2019-01-22] MEDS ORDERED: XYLOCAINE-MPF 2% ONE (19:54)
[2019-01-22] MEDS ORDERED: FENTANYL ONE (19:54)
[2019-01-22] MEDS ORDERED: DIPRIVAN 1% ONE (19:54)
[2019-01-22] MEDS ORDERED: ZEMURON ONE ×2 (19:55→20:08)
[2019-01-22] MEDS ORDERED: DECADRON ONE (19:55)
[2019-01-22] MEDS ORDERED: ZOFRAN ONE (19:55)
[2019-01-22] MEDS ORDERED: ROBINUL ONE (19:55)
[2019-01-22] MEDS ORDERED: QUELICIN (DOSE) ONE (19:55)
[2019-01-22] MEDS ORDERED: OFIRMEV 1000 MG/ISOTONIC SOLN 1,000 MG/100 ML BOTTLE ONE (19:59)
[2019-01-22] MEDS ORDERED: NEOSTIGMINE ONE (20:02)
[2019-01-22] MEDS ORDERED: PHENERGAN IV PRN (21:04)
[2019-01-22] MEDS ORDERED: SODIUM CHLORIDE 0.9% INJ PRN (21:15)
--- NOTE | 2019-01-22 21:17 | OPERATIVE NOTE ---
PROCEDURE DATE: 01/22/2019 PREOPERATIVE DIAGNOSIS: Acute cholecystitis with cholelithiasis. POSTOPERATIVE DIAGNOSIS: Acute cholecystitis with cholelithiasis. PRINCIPAL PROCEDURE: Laparoscopic cholecystectomy without intraoperative cholangiogram. SURGEON: Elisabeth Corley MD. ANESTHESIA: General in addition to local anesthetic. ESTIMATED BLOOD LOSS: 50 mL. DRAINS: A #10 flat Mark-Keyes drain, right upper quadrant of the abdomen. INDICATIONS: Mr. Rick Kathleen is an 83-year-old white male who presented to our emergency department with a week-long history of abdominal pain localized to his right upper quadrant. CT scan of his abdomen and pelvis suggested acute cholecystitis as did his exam, and cholecystectomy was recommended. FINDINGS: His gallbladder was distended and thin walled. It was acutely inflamed. It had omentum stuck to it. The duodenum was also stuck to the underside of the gallbladder. The gallbladder was very fragile, and it was torn during the procedure and there was some spillage of white bile and black stones. The cystic duct was dilated and very thin. We controlled it with a large clips. We did leave a drain after the procedure. This was a difficult dissection. DESCRIPTION OF PROCEDURE: The patient was brought to the operating room, placed supine, received general anesthesia, and was intubated. His intubation was difficult. His abdomen was prepped and draped in a sterile field. We began the procedure by making a curvilinear incision below the umbilicus using a 15-blade scalpel. A Veress needle was introduced through this incision into the abdomen. Pneumoperitoneum was established. The Veress needle was removed, and I placed an 11 mm trocar through this incision into the abdomen. The camera was placed through this port, and the abdomen was explored for injury and there was none. Three other trocars were placed along the right costal margin under direct vision of the camera. I placed an 11 mm trocar just to the right of the midline and two 5 mm trocars in our midclavicular and anterior axillary lines. We had to decompress the gallbladder using needle and suction, and white bile was sucked out of there, and then I used a grasper with teeth to grab the fundus of the gallbladder and retract it superiorly along with the right lobe of the liver. Another grasper was used to grab the body of the gallbladder, and we carefully dissected the fat adhesed to the underside of the gallbladder off the gallbladder. We saw the duodenum was attached to the underside of the gallbladder, and I used hook scissors to remove it from the underside of the gallbladder. We identified the cystic duct. A clip was placed distally, 2 proximally, and it was divided using hook scissors. The cystic duct was identified throughout its length, and it was dilated and fragile. We did tear the gallbladder close to the insertion of the cystic duct. We attempted a cholangiogram, but it leaked around the catheter. I got exposure again and decided to go ahead and just clip the cystic duct so that we would not tear it further. I placed a large clip across the cystic duct, and then I had to cut the cystic duct slightly and place another large clip across to control the entire width of the cystic duct. I placed a 3rd clip, and I divided the duct distal to these clips using hook scissors. The spatula cautery was used to remove the gallbladder from the liver bed. I then used an Endobag to remove the gallbladder through our umbilical incision. I had to enlarge the incision to get this gallbladder out. I put the trocar back through the umbilical incision, and I took time to irrigate the area of operation and removed the irrigation with suction. I also had to retrieve some stones that were spilled during our dissection. I placed a #10 flat Mark- Keyes drain in the right upper quadrant, and it was brought out through our most lateral 5 mm trocar site. I secured it to the skin with a silk stitch. I used [id number] 2-0 Vicryl stitches to reapproximate the fascia at our 11 mm port sites, and all skin was closed with 4-0 Monocryl subcuticular stitches. Steri-Strips were applied. He will go to the recovery room and then be admitted back to the floor. cc: Elisabeth Corley MD
[2019-01-22] MEDS ORDERED: TOPROL XL PO SCH (22:00)
[2019-01-22] MEDS ORDERED: LR 1,000 ML IV SCH (22:00)
[2019-01-22] MEDS: ZOSYN 3.375 GM in NS 50 ML IV SCH (22:49)
[2019-01-23 00:39] LABS: BASO# 0.03 X1000 (0.0-0.2); BASO% 0.1 % (0.0-0.8); EOS# 0.02 X1000 (0.0-0.7); EOS% 0.1 % (0.0-10.0); HEMATOCRIT 39.5 % (42.0-52.0); HEMOGLOBIN 12.9 g/dL (14.0-18.0); IMM GRAN# 0.05 X1000 (0.0-0.04); IMM GRAN% 0.2 % (0.0-0.5); LYMPH# 0.89 X1000 (1.2-3.4); LYMPH% 3.8 % (20.5-51.1); MCH 26.8 PG (27-31); MCHC 32.7 g/dL (33-37); MCV 82.1 FL (81-99); MONO# 1.37 X1000 (0.11-0.59); MONO% 5.9 % (1.7-9.3); MPV 12.8 FL (7.4-10.4); NEUT# 20.94 X1000 (1.4-6.5); NEUT% 89.9 % (42.2-75.2); PLT 221 X1000 (130-400); RBC 4.81 XMIL (4.7-6.1); RDW 15.8 % (11.5-14.5)
[2019-01-23] MEDS ORDERED: NS 500 ML IV ONE (01:15)
[2019-01-23] MEDS ORDERED: NS 1,000 ML ONE (01:29)
[2019-01-23] MEDS ORDERED: LR 1,000 ML IV SCH (01:47)
[2019-01-23] MEDS: CARDIZEM CD PO SCH ×2 (01:58→08:25)
[2019-01-23] MEDS: TOPROL XL PO SCH ×2 (01:59→08:25)
[2019-01-23] MEDS: COZAAR PO SCH ×2 (01:59→08:26)
[2019-01-23] MEDS: CRESTOR PO SCH ×2 (01:59→20:51)
--- NOTE | 2019-01-23 02:21 | PROGRESS NOTE ---
DATE: 01/23/2019 The nurses called me early this morning about Mr. Kathleen because he kept bleeding from his most lateral 5 mm port site where the drain was placed. His drain was not draining within the LEIDY itself that much, but it was bloody drainage, and since he returned to the floor it was about 110 mL. However, he was having blood coming around the drain and dripping onto his bed, which was too much. His blood pressure also dropped to 85/60, his heart rate was in the 90s to 100s, and hematocrit was 39%. His presenting hematocrit was 48%. I placed a [id number] 3-0 nylon stitch after removing the LEIDY drain to stop the bleeding from our 5 mm port site. I hope that the bleeding is from a skin or muscle that was closed with my stitch and not from inside his abdomen. On palpation of his abdomen, it still appeared to be soft and not distended with blood. I asked the nurses to give him a bolus of about 600 mL of fluid and then we will go back to his regular IV rate. Will recheck a hematocrit in 4 hours. His O2 saturation was 100% on nasal cannula O2. He has been given Phenergan, so he was drowsy but he did awaken and follow my commands. His blood pressure was still low, 90/50, and his heart rate is about 100. I discussed his care with the nurses and they have monitors at the patient's bedside and know to call me with any change. I also spoke with his who was present. He is a difficult intubation and certainly we want to be sure that he would have to go back to surgery before putting him through a re-intubation. cc: Elisabeth Corley MD
[2019-01-23] MEDS: ZOSYN 3.375 GM in NS 50 ML IV SCH ×5 (04:34→21:58)
[2019-01-23 06:55] LABS: EOS# 0.01 X1000 (0.0-0.7); HEMOGLOBIN 11.3 g/dL (14.0-18.0); IMM GRAN% 0.5 % (0.0-0.5); LYMPH# 1.32 X1000 (1.2-3.4); MCH 26.7 PG (27-31); MCHC 31.4 g/dL (33-37); MCV 84.9 FL (81-99); MONO# 1.59 X1000 (0.11-0.59); MONO% 7.2 % (1.7-9.3); MPV 13.2 FL (7.4-10.4); NEUT# 19.11 X1000 (1.4-6.5); NEUT% 86.3 % (42.2-75.2); PLT 223 X1000 (130-400); RBC 4.24 XMIL (4.7-6.1); RDW 16.2 % (11.5-14.5); WBC 22.13 X1000 (4.8-10.8)
[2019-01-23] MEDS: PERIDEX MT SCH ×2 (08:26→21:59)
[2019-01-23 08:35] LABS: INR 1.24; PROTIME 16.6 Seconds (11.0-16.0)
[2019-01-23 08:36] LABS: PTT 32.2 Seconds (22.3-41.8)
--- NOTE | 2019-01-23 08:36 | Diag Imaging Result Doc PS360 ---
CHEST-1 VIEW - 01/23/2019 INDICATION: sepsis COMPARISON: 01/22/2019 FINDINGS: The lungs are normally expanded and clear. Heart size and mediastinal contours are normal. No pneumothorax or pleural effusion. Stable sternotomy wires. IMPRESSION: Negative exam. Electronically signed by Jude Durand 01/23/2019 8:34 AM
[2019-01-23 08:47] LABS: ALB/GLOB RATIO 1.6; ALBUMIN 3.3 g/dL (3.5-5.0); CALCIUM 8.6 mg/dL (8.8-10.2); CREATININE 2.1 mg/dL (0.7-1.2); POTASSIUM 4.4 mmol/L (3.5-5.1); TOTAL BILIRUBIN 0.96 mg/dL (0.20-1.00); TOTAL PROTEIN 5.3 g/dL (6.3-8.3)
--- NOTE | 2019-01-23 08:52 | PROGRESS NOTE ---
DATE: 01/23/2019 SUBJECTIVE: Mr. Rick Kathleen is an 83-year-old, white male who yesterday evening underwent a laparoscopic cholecystectomy without intraoperative cholangiogram by me. His postoperative convalescence has been complicated by bleeding from his most lateral 5-mm port site, which required me coming up here early this morning and putting a stitch there. I was unsure whether this was subcutaneous muscle bleeding versus intraabdominal bleeding. I had to remove the LEIDY drain to control the bleeding with a stitch of this 5-mm port site. He has also been confused during the night. He did have a drop in his blood pressure which responded to some IV fluids. This morning his hematocrit went from 39 to 36 percent over the last 6 hours. OBJECTIVE: Vitals: His heart rate is 108, blood pressure 94/48, O2 saturation 94%. He is afebrile. His LEIDY drain has been removed. He has voided on his own. LABORATORY: His white blood cell count went from 12 to 22. His hematocrit is 36%. Imaging Chest x-ray is mostly clear. PLAN: We need to remember that he was a difficult intubation. On exam, his abdomen is soft. There has been no ongoing bleeding from his trocar site after I have placed a stitch in it. He has lost his drain. He is confused. We will continue IV fluids and clinical exams and follow his hematocrit. We will continue IV antibiotics because of the elevated white blood cell count. I discussed his care with his at the bedside and his nurses. cc: Elisabeth Corley MD
[2019-01-23] MEDS ORDERED: CARDIZEM CD PO SCH (09:00)
[2019-01-23] MEDS ORDERED: COZAAR PO SCH (09:00)
[2019-01-23 12:59] LABS: URINE SOURCE CLEAN CATCH
[2019-01-23 13:04] LABS: BILIRUBIN URINE NEGATIVE (NEGATIVE); BLOOD URINE SMALL (NEGATIVE); COLOR YELLOW; GLUCOSE URINE NEGATIVE (NEGATIVE); KETONE URINE NEGATIVE (NEGATIVE); LEUKOCYTES URINE LARGE (NEGATIVE); NITRITE URINE NEGATIVE (NEGATIVE); PH URINE 6.5; PROTEIN URINE 50 mg/dL (NEGATIVE); SP GRAVITY URINE 1.042; TURBIDITY URINE HAZY (CLEAR); UROBILINOGEN URINE NORMAL (NORMAL)
[2019-01-23 13:21] LABS: UR EPITHELIAL CELLS <10 /HPF (<10); URINE BACTERIA 2+ /HPF; URINE WBC TNTC /HPF (<10)
[2019-01-23 13:36] LABS: URINE YEAST PRESENT
--- NOTE | 2019-01-23 18:39 | PROGRESS NOTE ---
DATE: 01/23/2019 Mr. Kathleen is 83-year-old white male who underwent a difficult laparoscopic cholecystectomy yesterday. We had problems early this morning with bleeding from his most lateral 5 mm port site which we stopped with a stitch. I had to pull his LEIDY drain which we placed at the time of surgery. He was also confused during the night but today he has been more lucent. His abdomen is slightly more distended but not tightly so. He is nauseated and had not taken much by mouth except for some liquids. He is asking for some Zofran tonight. He is more lucent. His heart rate is 105, blood pressure 120/75, which is improved since overnight. His O2 saturation 97%. He is afebrile. We have him on IV Zosyn because his gallbladder was infected. His sugars are little bit elevated. His white blood cell count is 22. His BUN and creatinine have gone up. It is 26 and 2.1. His total bilirubin is normal. His AST and ALT are slightly elevated as expected after surgery. His lactate is 5.5. His chest x-ray this morning was clear. He does not have a Frazier catheter tube in place. His urine output over the last shift has been a little bit low. Will continue his IV fluids and make sure that we will check labs again tomorrow, specially follow his creatinine. cc: Elisabeth Corley MD
[2019-01-23 19:24] LABS: BASO# 0.02 X1000 (0.0-0.2); BASO% 0.1 % (0.0-0.8); EOS# 0.01 X1000 (0.0-0.7); HEMATOCRIT 32.4 % (42.0-52.0); HEMOGLOBIN 10.5 g/dL (14.0-18.0); IMM GRAN% 0.4 % (0.0-0.5); LYMPH# 1.88 X1000 (1.2-3.4); LYMPH% 6.9 % (20.5-51.1); MCH 27.6 PG (27-31); MCHC 32.4 g/dL (33-37); MCV 85.3 FL (81-99); MONO# 2.61 X1000 (0.11-0.59); MONO% 9.5 % (1.7-9.3); MPV 13.3 FL (7.4-10.4); NEUT# 22.73 X1000 (1.4-6.5); NEUT% 83.1 % (42.2-75.2); PLT 164 X1000 (130-400); RDW 16.3 % (11.5-14.5); WBC 27.35 X1000 (4.8-10.8)
[2019-01-23 20:08] LABS: LYMPHS 9 % (21-51); MONO 1 % (1-9); SEGS 90 % (42-75)
[2019-01-23 20:09] LABS: ANISOCYTOSIS OCCASIONAL; LARGE PLATELETS OCCASIONAL
[2019-01-23] MEDS: LR 1,000 ML IV SCH (20:51)
[2019-01-23] MEDS ORDERED: CRESTOR PO SCH (21:00)
[2019-01-23 22:54] LABS: URINE SOURCE CATH
[2019-01-23 23:03] LABS: BILIRUBIN URINE NEGATIVE (NEGATIVE); BLOOD URINE TRACE (NEGATIVE); COLOR YELLOW; GLUCOSE URINE NEGATIVE (NEGATIVE); KETONE URINE TRACE mg/dL (NEGATIVE); LEUKOCYTES URINE LARGE (NEGATIVE); NITRITE URINE NEGATIVE (NEGATIVE); PROTEIN URINE 50 mg/dL (NEGATIVE); SP GRAVITY URINE 1.039; TURBIDITY URINE HAZY (CLEAR); UROBILINOGEN URINE NORMAL (NORMAL)
[2019-01-23 23:05] LABS: UR EPITHELIAL CELLS <10 /HPF (<10); URINE BACTERIA NEGATIVE /HPF; URINE RBC <10 /HPF (<10); URINE WBC TNTC /HPF (<10)
[2019-01-24] MEDS: ZOSYN 3.375 GM in NS 50 ML IV SCH ×4 (03:52→22:28)
[2019-01-24 07:37] LABS: BASO# 0.02 X1000 (0.0-0.2); BASO% 0.1 % (0.0-0.8); EOS# 0.01 X1000 (0.0-0.7); HEMATOCRIT 26.9 % (42.0-52.0); HEMOGLOBIN 8.4 g/dL (14.0-18.0); IMM GRAN# 0.06 X1000 (0.0-0.04); IMM GRAN% 0.3 % (0.0-0.5); LYMPH# 1.82 X1000 (1.2-3.4); LYMPH% 8.3 % (20.5-51.1); MCH 26.5 PG (27-31); MCHC 31.2 g/dL (33-37); MCV 84.9 FL (81-99); MONO# 2.23 X1000 (0.11-0.59); MONO% 10.1 % (1.7-9.3); MPV 13.3 FL (7.4-10.4); NEUT# 17.91 X1000 (1.4-6.5); NEUT% 81.2 % (42.2-75.2); PLT 148 X1000 (130-400); RBC 3.17 XMIL (4.7-6.1); RDW 16.2 % (11.5-14.5); WBC 22.05 X1000 (4.8-10.8)
[2019-01-24 07:43] LABS: ALB/GLOB RATIO 1.1; ALBUMIN 2.8 g/dL (3.5-5.0); CALCIUM 8.4 mg/dL (8.8-10.2); CREATININE 2.2 mg/dL (0.7-1.2); POTASSIUM 4.3 mmol/L (3.5-5.1); TOTAL BILIRUBIN 0.46 mg/dL (0.20-1.00); TOTAL PROTEIN 5.3 g/dL (6.3-8.3)
--- NOTE | 2019-01-24 08:16 | EKG Report ---
Test Performed on : 01/22/2019 12:44:37 PM Test Reason : chest pain Blood Pressure : / mmHG Vent. Rate : 082 BPM Atrial Rate : 082 BPM P-R Int : 174 ms QRS Dur : 080 ms QT Int : 406 ms P-R-T Axes : 062 019 091 degrees QTc Int : 474 ms Sinus rhythm. with occasional premature ventricular complexes. Minimal voltage criteria for LVH, may be normal variant Septal infarct , age undetermined Abnormal ECG When compared with ECG of 07-AUG-2018 11:37, premature ventricular complexes. are now present Septal infarct is now present Nonspecific T wave abnormality, worse in Lateral leads Unconfirmed Result
[2019-01-24] MEDS: LR 1,000 ML IV SCH ×2 (08:41→18:29)
[2019-01-24] MEDS: PERIDEX MT SCH ×2 (08:42→20:44)
[2019-01-24] MEDS: TOPROL XL PO SCH (08:43)
[2019-01-24] MEDS: CARDIZEM CD PO SCH (08:43)
[2019-01-24] MEDS: COZAAR PO SCH (08:43)
[2019-01-24 11:02] LABS: HEMATOCRIT 26.8 % (42.0-52.0); HEMOGLOBIN 8.6 g/dL (14.0-18.0)
--- NOTE | 2019-01-24 14:12 | PROGRESS NOTE ---
DATE: 01/24/2019 SUBJECTIVE: Mr. Rick Kathleen is now postop day 2 from a laparoscopic cholecystectomy without intraoperative cholangiogram for acute cholecystitis. His postoperative convalescence has been complicated by bleeding. He has also has had some renal dysfunction which we attribute to dehydration secondary to bleeding. His creatinine has gone to 2 he is still making urine. OBJECTIVE: Clinically, he states that he feels better today. His hematocrit is 27% this morning and was again 27% 5 hours later. His abdomen is soft. He has had a bowel movement. He has a Frazier catheter tube in place. His heart rate is 100 blood pressure 107/50 O2 saturation is 100%. He is afebrile. He is on IV Zosyn. PLAN: I have discussed in detail with the family that we felt that he had some postoperative bleeding secondary to his cholecystectomy. His hematocrit seems to have stabilized. We are continuing IV fluids. We will let him have some liquids and since he is clinically feels better we will take him back to surgery for diagnostic laparoscopy. We will check another hematocrit at 6 o'clock this evening. cc: Elisabeth Corley MD
[2019-01-24] MEDS ORDERED: CARDIZEM IV ONE (17:50)
[2019-01-24] MEDS ORDERED: MORPHINE IV ONE (18:10)
[2019-01-24] MEDS ORDERED: CARDIZEM 100 MG/NS 100 MG/100 ML IVPB IV SCH (18:45)
[2019-01-24 19:06] LABS: HEMATOCRIT 26.9 % (42.0-52.0); HEMOGLOBIN 8.6 g/dL (14.0-18.0)
--- NOTE | 2019-01-24 19:40 | Diag Imaging Result Doc PS360 ---
EXAM: CHEST-PORTABLE 01/24/2019 HISTORY: afib with rvr; sob TECHNIQUE: Erect AP portable at 1931 COMMENT: The inspiration is less optimal than on 01/23/2019. There is increased opacity in the lung bases which may be due to the poor inspiration. The possibility of basilar atelectasis cannot be excluded however. IMPRESSION: Questionable bibasilar atelectasis. Electronically signed by Fredy Whittington 01/24/2019 7:37 PM
[2019-01-24] MEDS: HUMULIN R SUBQ SCH (20:44)
[2019-01-24] MEDS: CRESTOR PO SCH (20:44)
[2019-01-24] MEDS ORDERED: CORDARONE IV ONE (20:58)
[2019-01-24] MEDS ORDERED: CORDARONE 360 MG/D5W 360 MG/200 ML IV.SOLN IV ONE (20:59)
[2019-01-24] MEDS ORDERED: LOPRESSOR PO ONE (21:43)
--- NOTE | 2019-01-24 21:50 | CONSULTATION ---
DATE OF CONSULTATION: 01/24/2019 CONSULTING PHYSICIAN: Sonu Garzon MD. REASON FOR CONSULTATION: To help manage with comorbidities, chest pain, and atrial fibrillation. HISTORY OF PRESENT ILLNESS: Mr. Rick Kathleen is an 83-year-old male with a medical history of AVR tissue valve, MVR repair, diabetes mellitus type 2, hyperlipidemia, atrial fibrillation, GERD, who presented on 01/22/2019 due to not feeling good over the last three weeks. Imaging showed that he had a dilated gallbladder that was inflamed and consistent with acute cholecystitis so he was seen by Dr. Corley who performed on the same day a laparoscopic cholecystectomy. It is noted that he was recently worked up at [facility] at the request of his family physician due to some complaints of chest pain and dizziness. He underwent a left heart catheterization there and was discharged home. We are getting old medical records from there to view the results of the heart catheterization. It looks like postop day #1 his LEIDY drain around the site was bleeding but there was not much bloody drainage inside of the LEIDY drain. What could be measured was about 110 mL of bloody drainage and he had a lower blood pressure with that. His hematocrit had dropped from 48 to 39. So, a stitch was placed after removing the LEIDY drain by Dr. Corley. At that time abdomen was still soft and nondistended. He had IV fluids which mildly helped his blood pressure to improve. It was also noted on postop day #1 that his white blood cell count had shot up from 12 to 22 along with the drop in his hemoglobin and hematocrit. He was hypotensive so they got lactate which showed that he had some lactic acidosis with his lactic acid being in the mid 5. He received IV fluid hydration with lactated ringers and he received Zosyn and they did cultures. So far, cultures only show gram-negative rods in the urine. Chest x-ray did not have any signs of pneumonia. The blood cultures are only showing preliminary right now. He has never ran a fever with this. Yesterday he also showed some signs of acute kidney injury. Today, it is noted that his hematocrit had finally stabilized from yesterday. He is advanced to a clear liquid diet. His vital signs have stabilized. Some time after 5:00 he had a sudden onset of chest pressure that radiated down the left arm, became diaphoretic and nauseated. I was noted that he had gone into atrial fibrillation with a rapid ventricular response. Rate was in the 170s. A CAT call was called and patient was seen immediately and treated immediately. He received 20 of IV Cardizem which temporarily slowed the heart rate down to as low as the 40s but went back up to the 120s and 130s. The chest pressure started to relieve. He was transferred to the ICU for further care and evaluation. Cardiology was consulted and cardiac enzymes were obtained. We do not have the results of cardiac enzymes yet. So, thank you for this consultation. We will be sure to follow daily and be available. PAST MEDICAL HISTORY: 1. Atrial fibrillation. 2. Hypertension. 3. Peripheral vascular disease. 4. Chronic back pain and left hip pain secondary to previous left pelvic fracture. 5. GERD. PAST SURGICAL HISTORY: 1. Most recently had a left heart cath that was performed at [facility]. It was performed on 01/11/2019. 2. AVR tissue valve due to aortic stenosis. 3. Mitral valve repair secondary to mitral regurgitation and leaflet abnormality. 4. Bilateral renal artery stenosis. 5. Bilateral cataract surgery. 6. Open reduction and internal fixation of the left pelvis. 7. Laparoscopic cholecystectomy performed by Dr. Corley on this admission on 01/22/2019. SOCIAL HISTORY: Two pack per day smoker for 30 years but quit in 1984. Denies alcohol or illicit drug use. FAMILY HISTORY: Positive for asthma in mother. Father had history of coronary disease and mitral valve disease due to rheumatic heart disease. He also had a sister who had mitral valve repair secondary to rheumatic heart disease. ALLERGIES: Niacin. CURRENT MEDICATIONS: 1. [place] 10. 2. Peridex mouthwash twice a day. 3. Cardizem drip per protocol. 4. LR at 100 mL an hour. 5. Cozaar 100 mg p.o. daily - that was discontinued tonight. 6. Toprol XL 50 mg p.o. daily. May need to change that. 7. Morphine p.r.n. 8. Zofran p.r.n. 9. Zosyn 3.375 IV q 6 hours. Will monitor kidney function, if worsening kidney function we can change the dosing and frequency of that. 10.Crestor 20 mg p.o. nightly. 11.Insulin, regular, sliding scale. HOME MEDICATIONS: 1. Cozaar 100 mg p.o. nightly. 2. Diltiazem 240 mg p.o. daily. 3. Aspirin 81 mg p.o. daily. 4. Rosuvastatin 20 mg p.o. nightly. 5. Toprol XL 50 mg p.o. daily. 6. Vitamin D2 50,000 units p.o. every Thursday. 7. Metformin 500 mg p.o. twice daily. REVIEW OF SYSTEMS: A 14-point review of systems are complete and were all negative except for those mentioned above in HPI. PHYSICAL EXAMINATION: Vital signs: They have not been updated since his CAT call, but his heart rate was in the 120s, his blood pressure systolically was 100, O2 saturation on 2L was 96% and temperature 98.5. General: Mr. Rick Kathleen is an 83-year-old male. He is not in any acute distress anymore. He does feel better but he still feels bad. He appears to be exhausted. HEENT: Atraumatic, normocephalic. Pupils equal, round, and reactive to light. Extraocular movements intact. Mucous membranes are moist. Neck: Trachea midline. Cardiovascular: Irregularly irregular tachycardic rate and rhythm. No rubs, gallops, or murmurs. 1+ lower extremity to trace lower extremity edema. +2 dorsalis and radial pulses. Negative JVD and carotid bruits. Pulmonary: Clear to auscultate bilateral breath sounds. No accessory muscle use or work of breathing noted. GI: Soft, but distended. Tender in the areas of incisions. There might be some mild distention, but it is still soft. Positive bowel sounds. Patient claims he has had two bowel movements today already. Extremities: Moves all extremities equally with full range of motion but he is about 4/5. He has generalized weakness. Neurologic: Alert and oriented x3. Follows commands. Sensory is intact. Skin: Warm, dry, intact except for incisions which have some trace old oozing noted on the gauze. They are well approximated. No dehiscence noted. No signs or symptoms of infection noted either. LABORATORY DATA: White blood cells 22,000, hemoglobin 8, hematocrit 26, platelet count 148. Sodium 141, potassium 4.3, BUN 38, creatinine is 2.2, glucose 154, calcium 8.4, bilirubin 0.46, AST 76, ALT 133. Troponin pending. Albumin is 2.8. IMAGING: There has been a chest x-ray ordered for today. ASSESSMENT AND PLAN: 1. Acute cholecystitis now status post laparoscopic cholecystectomy with some possible postoperative bleeding that has stabilized out. Surgical procedure performed by Dr. Corley. Otherwise, he has been doing well from that surgery. There is some mild distention in the abdomen but he has started having bowel movements, according to the patient. They have already started him on a clear liquid diet. Currently it looks like postop day #3. 2. Atrial fibrillation with rapid ventricular response. History of atrial fibrillation. He is going to be started on Cardizem drip. He will continue his beta-renetta. May have to change the frequency and dosing of that though. Cardiology has been consulted. A chest x-ray has been ordered. 3. Acute blood loss anemia secondary to surgery. Currently hemoglobin and hematocrit have stabilized out. 4. Recent left heart catheterization that was performed 01/11/2019 at [facility]. We are getting the records from that. 5. Diabetes mellitus type 2. Will do patterned blood glucoses, sliding scale insulin. 6. History of aortic valve replacement tissue valve. Also with mitral valve repair. No anticoagulation though other than aspirin that he has been on at home. 7. Hyperlipidemia. Continue statin but will watch the liver panel. 8. Hypertension. Cozaar stopped. He is a little less hypertensive, he is more on the low side. Will have to monitor that closely. 9. Acute kidney injury. He is receiving lactated ringers at 100 mL an hour. Cozaar stopped. Will try to not use nephrotoxic medications. He is on regular dosing of Zosyn. We could consider decreasing the rate and frequency of that. 10.Recent signs of sepsis with lactate in the 5's, could have just been dehydration, but he had cultures obtained and the urine culture is positive for gram-negative rods at this time. He is on Zosyn for it. Receiving intravenous fluid hydration. 11.Leukocytosis. See previous number. 12.Deep venous thrombosis prophylaxis with sequential compression devices. 13.History of gastroesophageal reflux disease. He can have p.r.n. Zofran. Currently he is not on any medication for it. Patient seen and examined by me face to face, all the laboratory, vitals signs, and images were reviewed, patient admitted a few days ago, had a cholecystectomy done with acute blood lost afterwards, we were consulted due to chest pain with a fib with RVR, he has a previous history of atrial fibrillation, and he has been follow by Cardiology before, place on [facility], ICU, Cardiology consulted , I agree with the ELECTRONIC EQUIPMENT REPAIRER's assessment and plan, Omar Doe MD Dictated by MARCELINO Morgan for Omar Johnson MD cc: MARCELINO Morgan MD [facility]
--- NOTE | 2019-01-24 21:58 | CONSULTATION ---
DATE OF CONSULTATION: 01/24/2019 IMPRESSION: 1. Atrial fibrillation, rapid ventricular rate. The patient has history of previous episode of atrial fibrillation at some point in the past but not in the last few years. 2. Status post laparoscopic cholecystectomy for acute cholecystitis. 3. Status post previous aortic valve replacement in 2012 for severe aortic stenosis. Patient also had removal of mass from mitral valve which was also diseased at that time. 4. Mitral valve disorder. Patient has some degree of mitral stenosis. 5. No significant coronary disease by previous coronary angiography in 2012. Patient had repeat cardiac catheterization/coronary angiography in [place] in the last 6 months which reportedly demonstrated no significant coronary obstructive lesions. 6. Hypertension. 7. S/P bilateral renal artery stents. 8. Type 2 diabetes mellitus. RECOMMENDATIONS: 1. Continue intravenous diltiazem as required for rate control. 2. Initiate intravenous amiodarone to try and restore sinus rhythm. 3. If atrial fibrillation persists consider initiation of subcutaneous Lovenox. 4. Repeat echocardiography but favor waiting till heart rate is better controlled. HISTORY: This 83-year-old white male with past history of previous aortic valve replacement with bioprosthesis, removal of mass from mitral valve, mitral valve disorder with some degree of mitral stenosis, hypertension, type 2 diabetes mellitus, hyperlipidemia, and bilateral renal artery stents was recently admitted with several days of right upper quadrant discomfort and nausea. Symptoms seem to be provoked by eating. Radiographic studies suggested acute cholecystitis. Several days ago he underwent laparoscopic cholecystectomy. This afternoon he developed atrial fibrillation with rapid ventricular rate. He started on intravenous Cardizem and moved to intensive care unit. He is presently without chest symptoms. He has no dyspnea. PAST MEDICAL HISTORY: 1. Aortic valve disorder. Patient is status post aortic valve replacement with bioprosthesis with 21 mm Magna CE pericardial bioprosthetic valve in March 2013 at [facility]. He also had removal of a mass from his mitral valve at that time. 2. Mitral valve disorder with some degree of mitral stenosis. 3. No significant coronary atherosclerosis on coronary angiography 2012 and again within the past 6 months. 4. Hypertension. 5. Hyperlipidemia. 6. Type 2 diabetes mellitus. 7. Bilateral renal artery stents. 8. Chronic kidney disease. 9. Previous atrial fibrillation in the past without documented recurrence. ALLERGIES: He is allergic or intolerant to niacin and Trilipix. MEDICATIONS PRIOR TO ADMISSION: As listed. SOCIAL HISTORY: He is a nonsmoker. He does not use alcohol. FAMILY HISTORY: Negative for premature coronary disease. REVIEW OF SYSTEMS: Pulmonary: Noteworthy for some tendency for exertional shortness of breath. Gastrointestinal: Noteworthy for postprandial abdominal discomfort and nausea. Constitutional: Noncontributory. Remainder review of systems negative/noncontributory with 14 total systems reviewed. PHYSICAL EXAMINATION: General: This is a elderly white male in no distress. Vital signs: Blood pressure 100/65, heart rate 120 and irregular with ECG monitor showing atrial fibrillation. Oxygen saturation 97% on nasal cannula oxygen. HEENT: Extraocular movements appear intact. Mucous membranes moist. Neck: Supple without jugular venous distention. There are no carotid bruits. Chest: Auscultation of the chest reveals a few inspiratory crackles in left base posteriorly. Cardiac Exam: Reveals an irregular rate and rhythm without appreciable murmur or gallop. Abdomen: Soft. Bowel sounds are normal. Extremities: Without edema. cc: MD Omar Maki MD MTDD
[2019-01-25] MEDS ORDERED: CORDARONE 540 MG in D5W 289.2 ML IV ONE (02:59)
[2019-01-25 03:28] LABS: ALLEN TEST YES; BE 6.8 mmoll (-3.0-3.0); BLOOD TYPE ARTERIAL; HCO3-(ACT) 30.2 mmoll (20.0-26.0); METHB 0.8 % (0.0-1.5); O2(CT) 9.9 mL/dL (15.0-23.0); O2HB 95.3 % (95.0-99.0); PCO2(98.6) 37 mmHg (35-45); PO2(98.6) 79 mmHg (60-100); SAMPLE BLOOD; SAO2 96.7 % (95.0-100.0); THB 7.3 g/dL (11.5-17.4); pH(98.6) 7.52 (7.35-7.45)
[2019-01-25 03:30] LABS: MODALITY CANNULA
[2019-01-25 03:32] LABS: EOS# 0.02 X1000 (0.0-0.7); EOS% 0.1 % (0.0-10.0); HEMATOCRIT 22.2 % (42.0-52.0); IMM GRAN# 0.03 X1000 (0.0-0.04); IMM GRAN% 0.2 % (0.0-0.5); LYMPH# 1.91 X1000 (1.2-3.4); LYMPH% 11.8 % (20.5-51.1); MCH 26.8 PG (27-31); MCHC 31.5 g/dL (33-37); MCV 85.1 FL (81-99); MONO# 1.48 X1000 (0.11-0.59); MONO% 9.1 % (1.7-9.3); MPV 12.7 FL (7.4-10.4); NEUT# 12.76 X1000 (1.4-6.5); NEUT% 78.8 % (42.2-75.2); PLT 149 X1000 (130-400); RBC 2.61 XMIL (4.7-6.1)
[2019-01-25 04:12] LABS: CALCIUM 8.3 mg/dL (8.8-10.2); CREATININE 1.4 mg/dL (0.7-1.2); POTASSIUM 3.5 mmol/L (3.5-5.1)
[2019-01-25] MEDS ORDERED: NS 250 ML ONE (05:22)
[2019-01-25] MEDS: ZOFRAN IV PRN (05:44)
[2019-01-25] MEDS: ZOSYN 3.375 GM in NS 50 ML IV SCH ×4 (06:50→23:12)
[2019-01-25] MEDS: HUMULIN R SUBQ SCH ×4 (06:51→20:18)
--- NOTE | 2019-01-25 07:57 | EKG Report ---
Test Performed on : 01/24/2019 5:40:24 PM Test Reason : NO EKG ORDER FOR MUSE Blood Pressure : / mmHG Vent. Rate : 143 BPM Atrial Rate : 131 BPM P-R Int : 000 ms QRS Dur : 080 ms QT Int : 298 ms P-R-T Axes : 000 011 205 degrees QTc Int : 459 ms Poor data quality, interpretation may be adversely affected Atrial fibrillation. with rapid ventricular response. Septal infarct (cited on or before 22-JAN-2019) Marked ST abnormality, possible inferior subendocardial injury Marked ST abnormality, possible anterolateral subendocardial injury Abnormal ECG When compared with ECG of 22-JAN-2019 12:44, (Unconfirmed) Significant changes have occurred Confirmed by Alfredo CHERRY, Benji ([id number]) on 01/25/2019 9:04:39 AM
[2019-01-25] MEDS: LR 1,000 ML IV SCH (08:03)
[2019-01-25] MEDS: LOPRESSOR PO SCH ×3 (08:03→20:51)
[2019-01-25] MEDS: PERIDEX MT SCH ×3 (08:04→20:52)
[2019-01-25] MEDS ORDERED: QUELICIN (DOSE) ONE (08:19)
[2019-01-25] MEDS ORDERED: XYLOCAINE-MPF 2% ONE (08:19)
[2019-01-25] MEDS ORDERED: MARCAINE 0.25% PF/EPI 1:200,000 ONE (08:30)
[2019-01-25] MEDS ORDERED: FENTANYL ONE (08:51)
--- NOTE | 2019-01-25 09:04 | PROGRESS NOTE ---
DATE: 01/25/2019 Mr. Kathleen, last night, went into atrial fibrillation. Had chest pain and actually a CAT call was called and he was transported down to the ICU where a letter carrier saw him. This morning, he is awake. He is nauseated. He is hemodynamically satisfactory but his hematocrit has gone from 27, where it was stable all day yesterday, to 22 today. His creatinine is 1.4. He is making urine. I spoke with his daughter at the bedside. If anything, he is not progressing but clinically has worsened. He has been moved from the floor to the ICU. He is now in atrial fibrillation and nauseated. His hematocrit still seems to be an issue, where it is falling. He required a unit of blood this morning. I feel we need to take him back to surgery for a diagnostic laparoscopy, probably exploratory laparotomy to evacuate his intra-abdominal hematoma and be sure there is no ongoing intra-abdominal bleeding from his previous laparoscopic cholecystectomy. I discussed this in detail with the patient and his daughter at the bedside this morning. I want to go ahead as soon as possible, knowing that he has a hard airway for intubation. I will expect that he goes back to the ICU. cc: MD Robert Anaya MD
[2019-01-25] MEDS ORDERED: ZEMURON ONE (09:15)
--- NOTE | 2019-01-25 09:18 | PROGRESS NOTE ---
DATE: 01/24/2019 [address] is a patient Dr. Abiola Madera. He is an 83-year-old male who over the last 3 weeks has felt well, over the last week, much worse. He was hospitalized at [facility] at the request of his family physician to evaluate his heart because of some chest pain, dizziness, underwent cardiac catheterization and evaluation at [facility]. Discharged home. Presented to our emergency room with a several day history of right upper quadrant pain radiating to his back. Did not sleep well the night before on 01/22/2019. CT scan of the abdomen and pelvis as part of his evaluation suggested acute cholecystitis. He had a tissue valve aortic valve replacement. PAST MEDICAL HISTORY: Recent evaluation of cardiac function 01/11/2019 including cardiac catheterization. He has history of diabetes, abdominal pain had worsened. Dr. Corley has been following. He had a laparoscopic cholecystectomy done on 01/22/2019 without intraoperative cholangiogram and he hospitalists were consulted yesterday I think to help with management. He also has a history of atrial fib, peripheral vascular disease and chronic back pain, gastroesophageal reflux disease. PAST SURGICAL HISTORY: 1. He has had bilateral renal artery stenosis. 2. Bilateral cataract surgery. 3. Open reduction, internal fixation of left pelvis. 4. Laparoscopic cholecystectomy performed on 01/22 being taken back this morning for laparotomy. LABORATORY DATA: From this morning, white count 27565, hematocrit is 22, platelet count 149,000. Chemistry sodium 143, potassium 3.5, chloride 107, BUN 33, creatinine 1.4. Chest x-ray yesterday with questionable bibasilar atelectasis. We will follow up postop. cc: Robert Perkins MD
[2019-01-25] MEDS ORDERED: LR 1,000 ML ONE (09:51)
[2019-01-25] MEDS ORDERED: NEOSTIGMINE ONE (10:08)
[2019-01-25] MEDS ORDERED: ROBINUL ONE (10:08)
--- NOTE | 2019-01-25 11:17 | Diag Imaging Result Doc PS360 ---
EXAM: CHEST-PORTABLE 01/25/2019 HISTORY: CVL placement TECHNIQUE: AP portable semiupright at 1107 COMMENT: There is a right subclavian central venous catheter with its tip just above the right atrium. There is hazy opacity over both lower lung humphrey which may include some pleural fluid. There is a linear opacity vertically oriented along the lateral right chest which was also apparently present at the time the previous study of 01/24/2019 although it is more conspicuous on the current exam. No evidence of pneumothorax is present. There is cardiomegaly. IMPRESSION: Worsened atelectasis versus pneumonia particularly in the left lower lobe and lingula. Pulmonary edema. Questionable pleural fluid collections. Cardiomegaly. Electronically signed by Fredy Whititngton 01/25/2019 11:15 AM
[2019-01-25 11:58] LABS: HEMATOCRIT 34.4 % (42.0-52.0)
[2019-01-25] MEDS: D5 1/2 NS + KCL 20 MEQ 1,000 ML IV SCH (17:01)
--- NOTE | 2019-01-25 17:41 | OPERATIVE NOTE ---
PROCEDURE DATE: 01/25/2019 PREOPERATIVE DIAGNOSIS: Hemoperitoneum status post laparoscopic cholecystectomy. POSTOPERATIVE DIAGNOSIS: Hemoperitoneum status post laparoscopic cholecystectomy. PRINCIPAL PROCEDURE: 1. Diagnostic laparoscopy with evacuation of intraabdominal clot. 2. Right subclavian central venous line using fluoroscopy. SURGEON: Elisabeth Corley MD. CATCHER FILTER TIP: Dr. Trevor Garzon. ANESTHESIA: General in addition to local anesthetic. ESTIMATED BLOOD LOSS: 600 mL. DRAINS: None. INDICATIONS: Mr. Rick Kathleen is an 83-year-old white male who is now postop day 3 from a laparoscopic cholecystectomy for acute cholecystitis. He has had some bleeding postoperatively intraabdominally with a drop in his hematocrit but yesterday his hematocrit was stable. However this morning it went from 27 to 22 percent. He was nauseated. He had to be transferred to the ICU from the floor yesterday with atrial fibrillation and we felt we should take him back to surgery and evaluate him in the area of operation for any evidence of ongoing bleeding and to evacuate any intraabdominal blood. FINDINGS: He had a clot of about 600 mL in the right upper quadrant along the inferior aspect of the right lobe of the liver. It seems like it originated in the area of his cholecystectomy or the gallbladder bed. We took a lot of time to suck out all this clot and there was no evidence of any ongoing bleeding but we did place some SurgiSeal in the area of the gallbladder fossa. We decided against leaving a drain. DESCRIPTION OF PROCEDURE: The patient was brought to the operating room, placed supine, received general anesthesia, was intubated. He is a difficult intubation and it had to be done with fiberoptic intubation. His abdomen was prepped and draped within a sterile field. He already had a Frazier catheter tube in place. We began the procedure by opening the umbilical incision and I placed 11 mm trocar through this incision. We created pneumoperitoneum. We placed the camera intraabdominally. His clot was in the right upper quadrant only. He had some blood in the pelvis but it was minimal. We placed another 11 mm trocar through our incision just to the right of the midline right upper quadrant. We placed our two 5 mm trocars and our 5 mm trocar sites along the right costal margin. I placed an extra trocar site in the left side of the abdomen for a fan. We took time to thoroughly irrigate out the blood clot which involved the gallbladder fossa and along the right upper quadrant of the abdomen. We irrigated that area thoroughly and removed the irrigation with suction. We looked for any evidence of ongoing bleeding and found none. There was no evidence of any bile leak or infection intraabdominally. We just removed blood clot. We were very careful to be sure we were not missing any evidence of ongoing bleeding. We did place some Surgicel in the area of the operation removing the gallbladder in hopes to prevent any ongoing oozing. Once we were comfortable that the abdomen was cleared of any clotted blood which was 600 mL, we stopped the procedure. We did use a fan retractor to help us visualize the right upper quadrant. All trocars removed under direct vision the camera. The pneumoperitoneum was allowed to dissipate. I used [id number] 2-0 Vicryl stitches to reapproximate the fascia at our 11 mm port sites. All skin was closed with 4-0 Monocryl subcuticular stitches. Steri-Strips were applied. It must be noted that I placed a right subclavian central venous line prior to surgery and I used fluoroscopy. The area was prepped and draped in a sterile field. I used an 18-gauge needle to access the right subclavian vein. A guidewire was placed through this needle into the right side of the heart. The needle was removed. I made a nikhil in the skin at the exit site of the guidewire, placed a dilator and then an antibiotic coated triple-lumen catheter was placed over the guidewire into the superior vena cava. The guidewire was removed. The catheter was hooked to the skin with 3-0 silk stitches. All 3 ports were functioning well and were flushed with saline and the catheter was dressed. We did use fluoroscopy to check the position of the wire and the position of the catheter before using it. Dr. Trevor Garzon was present throughout the case. His presence was necessary for help with retraction and decision making in evacuating this clot. cc: MD Robert Anaya MD
[2019-01-25] MEDS ORDERED: NS 400 ML IV ONE (17:51)
--- NOTE | 2019-01-25 19:06 | PROGRESS NOTE ---
DATE: 01/25/2019 SUBJECTIVE: Patient now status post repeat laparoscopy with evacuation of intraabdominal clot. He has converted back to sinus rhythm with intravenous amiodarone. He reports feeling better. There has been no chest pain or shortness of breath. On supplemental oxygen per nasal cannula. OBJECTIVE: Vital Signs: Blood pressure 160/84, heart rate 64, with ECG monitor showing sinus rhythm. Oxygen saturation 98%. Neck: There is no significant jugular venous distention. Chest: Clear to auscultation. Cardiac: Reveals a regular rate and rhythm without appreciable murmur or gallop. Extremities: Are without edema. LABORATORY DATA: Includes a white blood cell count 16.2, hematocrit 34.4, hemoglobin 11.0, platelet count 149. Sodium 143, potassium 3.5, chloride 107, carbon dioxide 30, BUN 33, creatinine 1.4. IMPRESSION: 1. Atrial fibrillation. Patient has converted back to sinus rhythm. There is history of previous atrial fibrillation in the past, but none in the last few years. 2. Status post laparoscopic cholecystectomy for acute cholecystitis. 3. Status post laparoscopic removal of intraabdominal clot earlier today. 4. Status post previous aortic valve replacement in 2012 with bioprosthesis for severe stenosis. Patient also had removal of mass from mitral valve, which was also diseased at that time. 5. Mitral valve disorder. Patient has some degree of mitral stenosis. 6. No significant coronary disease by previous coronary angiography 2012 and again in the last few months. 7. Hypertension. 8. Status post bilateral lower stents. 9. Type 2 diabetes mellitus. RECOMMENDATIONS: 1. Discontinue intravenous diltiazem and intravenous amiodarone. 2. Initiate oral amiodarone 200 mg p.o. t.i.d. to try and suppress any further atrial fibrillation. 3. Repeat echocardiography. cc: MD Robert Maki MD
[2019-01-25] MEDS ORDERED: CHLORASEPTIC SPRAY MT PRN ×2 (20:25→20:33)
[2019-01-25] MEDS: DUONEB (A & A) INH PRN (20:45)
[2019-01-25] MEDS: CRESTOR PO SCH (20:51)
[2019-01-25] MEDS: MORPHINE IV PRN (21:39)
[2019-01-26] MEDS: ZOSYN 3.375 GM in NS 50 ML IV SCH ×5 (04:58→23:28)
[2019-01-26] MEDS: D5 1/2 NS + KCL 20 MEQ 1,000 ML IV SCH ×2 (05:05→17:54)
[2019-01-26 05:10] LABS: BASO# 0.01 X1000 (0.0-0.2); BASO% 0.1 % (0.0-0.8); EOS# 0.19 X1000 (0.0-0.7); EOS% 1.7 % (0.0-10.0); HEMATOCRIT 30.5 % (42.0-52.0); HEMOGLOBIN 9.7 g/dL (14.0-18.0); IMM GRAN# 0.02 X1000 (0.0-0.04); IMM GRAN% 0.2 % (0.0-0.5); LYMPH# 1.73 X1000 (1.2-3.4); LYMPH% 15.3 % (20.5-51.1); MCH 27.3 PG (27-31); MCHC 31.8 g/dL (33-37); MCV 85.9 FL (81-99); MONO# 1.15 X1000 (0.11-0.59); MONO% 10.2 % (1.7-9.3); MPV 12.3 FL (7.4-10.4); NEUT# 8.18 X1000 (1.4-6.5); NEUT% 72.5 % (42.2-75.2); PLT 118 X1000 (130-400); RBC 3.55 XMIL (4.7-6.1); RDW 15.6 % (11.5-14.5); WBC 11.28 X1000 (4.8-10.8)
[2019-01-26 05:31] LABS: AGAP 8; BUN 24 mg/dL (8-22); CALCIUM 8.1 mg/dL (8.8-10.2); CHLORIDE 109 mmol/L (98-107); COSMO 290; CREATININE 1.1 mg/dL (0.7-1.2); ESTIMATED GFR > 60; GLUCOSE 143 mg/dL (70-104); POTASSIUM 3.6 mmol/L (3.5-5.1); SODIUM 142 mmol/L (136-145); TCO2 25 mmol/L (25-35)
[2019-01-26] MEDS: HUMULIN R SUBQ SCH ×4 (06:15→20:56)
[2019-01-26] MEDS: DUONEB (A & A) INH PRN ×6 (07:26→23:18)
[2019-01-26] MEDS: LOPRESSOR PO SCH ×2 (08:28→20:56)
[2019-01-26] MEDS: CORDARONE PO SCH ×3 (08:28→17:47)
[2019-01-26] MEDS: PERIDEX MT SCH ×2 (08:28→20:56)
--- NOTE | 2019-01-26 10:00 | PROGRESS NOTE ---
DATE: 01/26/2019 SUBJECTIVE: Mr. Kathleen is sitting up in a chair, feeling better. He had a pretty good night. Breathing comfortably. OBJECTIVE: Vitals: Remains afebrile. Temperature 99.1 degrees, pulse 70, respirations 16, blood pressure 151/75. Eyes: Pupils are equal and round. Lungs: Clear in all lung humphrey. Cardiovascular: Regular rhythm and rate without murmur or S3. Abdomen: Soft. Skin: Warm and dry. URINE OUTPUT: 4200 mL. ASSESSMENT AND PLAN: 1. Status post diagnostic laparoscopy evacuation of intra-abdominal clot, right subclavian central venous line placed with fluoroscopy. 2. Atrial fibrillation. The patient is back in sinus rhythm. He has a history of previous atrial fibrillation. 3. Status post previous aortic valve replacement 2012. Bioprosthesis for severe stenosis. The patient also had a removal of mass in the mitral valve, which was diseased at that time. 4. Mitral valve disorder. The patient has a degree of mitral stenosis. 5. No significant coronary artery disease by previous angiography in 2012. 6. Hypertension. Blood pressure controlled. 7. Status post bilateral lower stents. 8. Diabetes mellitus type 2. Continue to check pattern sugars. Review of his orders: He is on Zosyn 3.375 g IV q.6. He is getting amiodarone IV loading dose. He is now on amiodarone 200 mg t.i.d. Appears still in atrial fibrillation. He is on Lopressor 25 mg b.i.d. cc: Robert Perkins MD
[2019-01-26] MEDS: CATAPRES PO PRN (11:34)
--- NOTE | 2019-01-26 18:10 | GENERAL SURGERY PROGRESS NOTE ---
DATE: 01/26/2019 SUBJECTIVE: He is sitting in his chair. He has been hemodynamically stable and rate controlled overnight. OBJECTIVE: His abdomen is soft. His incisions are intact. He is mildly distended. I have reviewed his labs. White count is 11, hematocrit 30. Creatinine is 1.1, glucose 140s to 170s. ASSESSMENT AND PLAN: This is an 83-year-old gentleman status post laparoscopic cholecystectomy by Dr. Corley. He had a hematoma evacuation yesterday. He has been hemodynamically stable overnight. His atrial fibrillation is controlled. Cardiology is following as well as the hospitalist. We will continue to monitor him closely. Otherwise, we can advance his diet as he tolerates out of bed. cc: MD Robert Garcia MD
--- NOTE | 2019-01-26 20:04 | PROGRESS NOTE ---
DATE: 01/26/2019 SUBJECTIVE: The patient continues without chest discomfort or dyspnea. He continues on clear liquids without difficulty. OBJECTIVE: Vital signs: Blood pressure 152/81. Heart rate 64 with ECG monitor showing sinus rhythm. Oxygen saturation 96% to 98% on supplemental oxygen per nasal cannula. Neck: Jugular venous distention cannot be appreciated. Chest: Clear to auscultation bilaterally. Cardiac Exam: Reveals a regular rate and rhythm without appreciable murmur or gallop. There is no evidence of peripheral edema. LABORATORIES: Laboratory data includes a white blood cell count 11.2, hematocrit 30.5, hemoglobin 9.7, platelet count 118,000. Sodium 142, potassium 3.6, chloride 109, carbon dioxide 25, BUN 24, creatinine 1.1, glucose 143. IMPRESSION: 1. Atrial fibrillation. The patient has converted back to sinus rhythm. There is a history of previous atrial fibrillation in the past but none in the last several years. 2. Status post laparoscopic cholecystectomy for acute cholecystitis. 3. Status post laparoscopic removal of intra-abdominal clot earlier yesterday. 4. Status post previous aortic valve replacement in 2012 with bioprosthesis for severe aortic stenosis. He also had removal of a mass from his mitral valve. 5. Mitral valve disorder with some degree of mitral stenosis. 6. No significant coronary disease by previous coronary angiography in 2012 and again earlier this year. 7. Hypertension. 8. Status post bilateral renal artery stents. 9. Type 2 diabetes mellitus. RECOMMENDATIONS: 1. Continue oral amiodarone. 2. Repeat echocardiography. 3. Follow up chest x-ray in a.m. cc: MD Robert Maki MD
[2019-01-26] MEDS: CRESTOR PO SCH (20:56)
[2019-01-26] MEDS ORDERED: LOPRESSOR PO ONE (22:18)
[2019-01-27] MEDS: DUONEB (A & A) INH PRN ×3 (03:19→11:25)
[2019-01-27] MEDS: MORPHINE IV PRN (03:39)
[2019-01-27] MEDS: ZOSYN 3.375 GM in NS 50 ML IV SCH ×3 (05:13→18:16)
[2019-01-27] MEDS: HUMULIN R SUBQ SCH ×4 (07:03→20:20)
--- NOTE | 2019-01-27 07:18 | Diag Imaging Result Doc PS360 ---
EXAM: CHEST-1 VIEW 01/27/2019 HISTORY: atrial fibrillation TECHNIQUE: AP portable at 0505 COMMENT: There is a right subclavian catheter with its tip in the superior vena cava. There is some interstitial opacity and hazy opacity in the mid lower right lung field. There is minimal pleural fluid bilaterally. Compared to 01/25/2019 the alveolar opacity in the left lower lobe has improved and the inspiration is generally better. IMPRESSION: Improved atelectasis or pneumonia left lower lobe. Pulmonary edema. Electronically signed by Fredy Whittington 01/27/2019 7:15 AM
[2019-01-27] MEDS: D5 1/2 NS + KCL 20 MEQ 1,000 ML IV SCH ×2 (07:41→18:16)
[2019-01-27] MEDS: ZOFRAN IV PRN ×2 (07:44→16:30)
--- NOTE | 2019-01-27 07:53 | EKG Report ---
Test Performed on : 01/26/2019 9:03:29 PM Test Reason : ICU. NO EKG ORDER FOR MUSE Blood Pressure : / mmHG Vent. Rate : 121 BPM Atrial Rate : 096 BPM P-R Int : 000 ms QRS Dur : 088 ms QT Int : 336 ms P-R-T Axes : 000 029 143 degrees QTc Int : 477 ms Poor data quality, interpretation may be adversely affected Atrial fibrillation. with rapid ventricular response. Septal infarct (cited on or before 22-JAN-2019) ST & T wave abnormality, consider lateral ischemia Abnormal ECG When compared with ECG of 24-JAN-2019 17:40, Serial changes of evolving Septal infarct present Confirmed by Alfredo CHERRY, Benji ([id number]) on 01/27/2019 8:47:33 AM
[2019-01-27] MEDS: LOPRESSOR PO SCH ×2 (09:17→20:15)
[2019-01-27] MEDS: CORDARONE PO SCH ×3 (09:17→16:30)
[2019-01-27] MEDS: PERIDEX MT SCH ×2 (09:17→20:15)
--- NOTE | 2019-01-27 09:39 | PROGRESS NOTE ---
DATE: 01/27/2019 SUBJECTIVE: Mr. Kathleen had a rough night. He is uncomfortable. OBJECTIVE: Vital Signs: Temp is 97.8 degrees, pulse 68, respirations 16, blood pressure 171/83. Urine output is 2400 mL. HEENT: Pupils are equal and round. Lungs: Clear in all lung humphrey. Cardiovascular: Regular rhythm and rate without murmur or S3. Abdomen: Soft. His abdomen feels a little better. Skin: Warm and dry. Extremities: He is mainly hurting in his right shoulder and his lower back. IMAGING: Chest x-ray: Improved atelectasis, left lower lobe infiltrate. ASSESSMENT AND PLAN: 1. Atrial fibrillation, converted back to sinus rhythm. History of previous atrial fibrillation in the past, but more in the last several years. 2. He is status post laparoscopic cholecystectomy for acute cholecystitis. From that standpoint, seems to be doing well. 3. He is status post laparoscopic removal of intra-abdominal clot 2 days ago. 4. Previous aortic valve replacement in 2013, bioprosthesis for severe aortic stenosis, and they had removed a mass from his mitral valve. 5. Mitral valve disorder, some degree of mitral stenosis. 6. No significant coronary artery disease by previous angiographic in 2013. 7. Hypertension. 8. Status post bilateral renal artery stents. 9. Diabetes mellitus type 2. 10. Right shoulder and back pain. Hopefully, this will improve when he is able to get up out of bed and sit up in a chair. LABORATORY DATA: Review of his lab from yesterday shows hematocrit 30, hemoglobin 9.7. Blood sugars have been 192, 171, 179, 149. Electrolytes from yesterday show sodium 142, potassium 3.6, chloride 109, BUN 24, creatinine 1.1. REVIEW OF ORDERS: I do not see any change. cc: Robert Perkins MD
[2019-01-27] MEDS: CATAPRES PO PRN (18:16)
--- NOTE | 2019-01-27 18:30 | GENERAL SURGERY PROGRESS NOTE ---
DATE: 01/27/2019 SUBJECTIVE: Some distention. His bowels are functioning. No nausea. Breathing is improved. He is being diuresed. He has been rate controlled and hemodynamically stable. OBJECTIVE: Abdomen: Soft. Incision intact. There is some bruising over the right side of his abdomen. LABORATORY: No new labs yet this morning. Glucose 158. ASSESSMENT AND PLAN: This is an 83-year-old gentleman status post laparoscopic cholecystectomy by Dr. Corley with subsequent abdominal washout of hematoma. He has had atrial fibrillation with RVR. This is rate controlled. Clinically he seems to be improving. He is being diuresed. He does have some edema type changes to his x-ray. Plan on repeating labs tomorrow but otherwise, limiting blood draws to prevent anemia from chronic blood draws. I have discussed this with his and his children. cc: MD Robert Garcia MD
[2019-01-27] MEDS: CRESTOR PO SCH (20:15)
[2019-01-28] MEDS: ZOSYN 3.375 GM in NS 50 ML IV SCH ×4 (00:19→17:10)
[2019-01-28] MEDS: ZOFRAN IV PRN (03:29)
[2019-01-28] MEDS: HUMULIN R SUBQ SCH ×4 (06:12→20:32)
[2019-01-28] MEDS: D5 1/2 NS + KCL 20 MEQ 1,000 ML IV SCH ×2 (06:20→10:18)
[2019-01-28] MEDS: PERIDEX MT SCH ×2 (08:06→20:27)
[2019-01-28] MEDS: CORDARONE PO SCH ×4 (08:06→16:13)
[2019-01-28] MEDS: LOPRESSOR PO SCH ×2 (08:06→20:27)
[2019-01-28 08:18] LABS: BASO# 0.02 X1000 (0.0-0.2); BASO% 0.2 % (0.0-0.8); EOS# 0.43 X1000 (0.0-0.7); EOS% 5.4 % (0.0-10.0); HEMATOCRIT 30.3 % (42.0-52.0); HEMOGLOBIN 9.7 g/dL (14.0-18.0); IMM GRAN# 0.02 X1000 (0.0-0.04); IMM GRAN% 0.2 % (0.0-0.5); LYMPH# 1.41 X1000 (1.2-3.4); LYMPH% 17.6 % (20.5-51.1); MCV 87.3 FL (81-99); MONO# 0.98 X1000 (0.11-0.59); MONO% 12.2 % (1.7-9.3); MPV 12.5 FL (7.4-10.4); NEUT# 5.17 X1000 (1.4-6.5); NEUT% 64.4 % (42.2-75.2); PLT 120 X1000 (130-400); RBC 3.47 XMIL (4.7-6.1); RDW 15.5 % (11.5-14.5); WBC 8.03 X1000 (4.8-10.8)
[2019-01-28 08:30] LABS: AGAP 5; BUN 13 mg/dL (8-22); CHLORIDE 104 mmol/L (98-107); COSMO 274; CREATININE 0.8 mg/dL (0.7-1.2); ESTIMATED GFR > 60; GLUCOSE 136 mg/dL (70-104); POTASSIUM 3.5 mmol/L (3.5-5.1); SODIUM 136 mmol/L (136-145); TCO2 27 mmol/L (25-35)
--- NOTE | 2019-01-28 10:19 | PROGRESS NOTE ---
DATE: 01/28/2019 SUBJECTIVE: Mr. Kathleen is feeling a little better, has been pretty uncomfortable this morning. He feels a little better. His abdomen feels a little better. Remains afebrile. OBJECTIVE: Vital Signs: Temperature 98.1 degrees, pulse 67, respirations 22. Blood pressures have been running between 152 and 186 over 69 to 124. HEENT: His pupils are equal. Neck: No distended neck veins. General: Alert and oriented x3. Family at the bedside, his daughter and . Lungs: Clear anterolateral. Cardiovascular: Regular rate without murmur or S3. Abdomen: Soft. Skin: Warm and dry. O2 saturation 94%. Urine output 3200 mL. ASSESSMENT AND PLAN: 1. Status post laparoscopic cholecystectomy per Dr. Corley and had subsequent abdominal washout of hematoma, doing well postop. 2. Atrial fibrillation, converted back to sinus rhythm. 3. Aortic valve replacement in 2013. Bioprosthesis for severe aortic stenosis. 4. Mitral valve disorder. Some degree of mitral stenosis. 5. No significant coronary artery disease by previous angiography in 2013. 6. Hypertension. 7. Status post bilateral renal artery stents. 8. Diabetes mellitus type 2. Sugars under fairly good control. 9. Right shoulder and neck pain, which is improved. I think this is musculoskeletal. LABORATORY DATA: Review of his lab from today, white count 8030, hematocrit is 30, hemoglobin 9.7, platelet count a 120,000. Sodium 136, potassium 3.5, chloride 104, BUN 13, creatinine 0.8. Blood sugars well controlled, 149, 139, 129, 136. Looking at orders, he is on D5 1/2 normal saline at 80 mL an hour, Lopressor 50 mg b.i.d. He is on Zosyn 3.375 g IV q.6 and Crestor 20 mg daily. He is eating a GI soft diet. His daughter would like him to have low calorie, so when we go to regular diet, we will try going to a diabetic diet. cc: Robert Perkins MD
[2019-01-28] MEDS: CATAPRES PO PRN (12:17)
--- NOTE | 2019-01-28 12:17 | GENERAL SURGERY PROGRESS NOTE ---
DATE: 01/28/2019 SUBJECTIVE: He is feeling well. Bowels are functioning, rate controlled and hemodynamically stable. His abdomen is soft. Incisions are intact. There is some bruising over the right flank, which is stable from previous. ASSESSMENT AND PLAN: This gentleman is status post laparoscopic cholecystotomy with hematoma evacuation postoperatively. He had atrial fibrillation with rapid ventricular response. All these issues seem to be improving. His hematocrit is stable. We will remove his Frazier. Transfer him to floor, and continue to follow him closely as he recovers. cc: MD Robert Garcia MD
--- NOTE | 2019-01-28 13:31 | ECHO REPORT ---
ORDER DATE: 01/26/2019 2D echocardiogram ECHOCARDIOGRAPHIC MEASUREMENTS: 1. Interventricular septum 0.9. 2. Left ventricular posterior wall 0.9. 3. Diastolic diameter 4.7. 4. Left atrium 4.2. 5. Aorta 3.1. SUMMARY: 1. Bioprosthetic valve in the aortic position was stable. 2. Pulmonic valve was normal. 3. There is trivial pulmonary regurgitation. 4. Tricuspid valve was normal. 5. Mitral valve leaflets were thickened with restricted movement with moderate to severe mitral annular calcification. 6. Right ventricle was dilated with reduced right ventricular systolic function. 7. There is left atrial enlargement. 8. Normal left ventricular cavity size. 9. Estimated ejection fraction of 60%. 10. Optison was used to assess left ventricular systolic function. 11. There is diastolic dysfunction. 12. Peak inflow velocity across the mitral valve was 2 m/sec with a mitral valve area by pressure half time of 2.8 square cm with a mean gradient of 5 mmHg associated with mild mitral regurgitation. 13. Would recommend a transesophageal echocardiogram to evaluate mitral valve if clinically indicated. 14. Peak velocity across the aortic valve was less than 2 m/sec. 15. There is trivial aortic regurgitation. 16. There is mild tricuspid regurgitation. 17. Peak velocity across the tricuspid valve was 3.5 m/sec. 18. Pulmonary artery systolic pressure of 60 mmHg. 19. There is no pericardial effusion or obvious intracardiac mass or thrombus seen. cc: MD Wallace Benedict MD Allen J. Schmidt, MD
[2019-01-28] MEDS: FLOMAX PO SCH ×2 (15:54→20:28)
[2019-01-28] MEDS ORDERED: LASIX PO ONE (20:04)
[2019-01-28] MEDS ORDERED: D5 1/2 NS + KCL 20 MEQ 1,000 ML IV SCH (20:05)
--- NOTE | 2019-01-28 20:20 | PROGRESS NOTE ---
DATE: 01/28/2019 SUBJECTIVE: Patient continues without chest discomfort or dyspnea. He has been advanced to regular diabetic diet but is having some anorexia. OBJECTIVE: Vital Signs: Blood pressure 140/69, heart rate 58 and regular with ECG monitor showing sinus rhythm. Oxygen saturation 99% on nasal cannula oxygen. There is no significant jugular venous distention. Chest: Is clear to auscultation. Cardiac: Reveals a regular rate and rhythm without appreciable murmur or gallop. Extremities: Are without edema. LABORATORY DATA: Includes white blood cell count 8.03, hematocrit 30.3, hemoglobin 9.7, platelet count 120,000. Sodium 136, potassium 3.5, chloride 104, carbon dioxide 27, BUN 13, creatinine 0.8, glucose 136. Echocardiography reports appropriately functioning bioprosthetic aortic valve. Mitral valve leaflets are thickened with restricted movement with moderate mitral annular calcification. Doppler suggests mild mitral stenosis. There is moderate pulmonary hypertension by Doppler of mild tricuspid regurgitation. Left ventricular ejection fraction 60%. Left atrial enlargement demonstrated. IMPRESSION: 1. Recent atrial fibrillation. Patient has converted back to sinus rhythm. He has history of previous atrial fibrillation in the past but none in the last several years until now. 2. Status post laparoscopic cholecystectomy for acute cholecystitis. 3. Status post laparoscopic removal of intraabdominal clot postop day 1. 4. Status post previous aortic valve replacement in 2012 with bioprosthesis for severe aortic stenosis. He also had removal of mass from mitral valve and has by current echocardiography mild mitral stenosis. 5. No significant coronary disease per previous coronary angiography in 2013 and again earlier this year. 6. Hypertension. 7. Status post bilateral renal artery stents. 8. Type 2 diabetes mellitus. RECOMMENDATIONS: 1. Continue amiodarone. 2. Ultimately would consider starting patient on anticoagulation for paroxysmal atrial fibrillation. cc: MD Robert Maki MD
[2019-01-28] MEDS: CRESTOR PO SCH (20:27)
[2019-01-29] MEDS: MORPHINE IV PRN (00:01)
[2019-01-29] MEDS: ZOSYN 3.375 GM in NS 50 ML IV SCH ×5 (00:01→19:21)
[2019-01-29] MEDS: ZOFRAN IV PRN (02:41)
[2019-01-29] MEDS: NORCO-10 PO PRN ×2 (04:54→20:53)
[2019-01-29] MEDS: HUMULIN R SUBQ SCH ×4 (06:47→22:09)
[2019-01-29] MEDS: CORDARONE PO SCH ×3 (10:06→20:55)
[2019-01-29] MEDS: LOPRESSOR PO SCH ×2 (10:06→20:53)
[2019-01-29] MEDS: FLOMAX PO SCH ×2 (10:06→20:53)
[2019-01-29] MEDS: PERIDEX MT SCH ×2 (10:08→20:54)
--- NOTE | 2019-01-29 10:58 | PROGRESS NOTE ---
DATE: 01/29/2019 SUBJECTIVE: Mr. Kathleen is sitting up in a chair. He did not sleep much last night, but his tummy feels better, still sore. Remains afebrile. OBJECTIVE: Vital Signs: Temperature 97.9 degrees, pulse 74, respirations 20, blood pressure 171/75. Eyes: Pupils are equal and round. Lungs: Clear in all lung humphrey. Cardiovascular exam: Regular rhythm and rate without murmur or S3. Abdomen: Soft. Extremities: No pedal edema. : Urine output was 2800 mL. ASSESSMENT AND PLAN: 1. Recent atrial fibrillation converted back to sinus rhythm. Has a history of atrial fibrillation in the past, but has not had trouble with it for several years. 2. Status post laparoscopic cholecystectomy for acute cholecystitis. 3. Status post laparoscopic removal of intra-abdominal clot, postoperative day 2. 4. Status post previous aortic valve replacement 2012. Bioprosthesis for severe aortic stenosis. He also had a history of removal of a mass in the mitral valve, and by current echocardiography he has mild mitral stenosis. 5. No significant coronary artery disease. Coronary angiography in 2012 and again earlier this year. 6. Hypertension. 7. Status post bilateral renal artery stents. 8. Diabetes mellitus type 2. Sugars appear under good control. 9. Status post laparoscopic cholecystectomy and hematoma evacuation. LABS: Review of his lab today: I do not see any new lab work. Reviewed the lab from yesterday and his orders; I do not see any change. MEDICATIONS: He is on amiodarone 200 mg t.i.d., D 5 normal saline at 50 mL an hour, Lopressor 50 mg p.o. b.i.d., Crestor 20 mg at bedtime, Flomax 0.4 mg b.i.d. and Zosyn 3.375 g IV q. 6 hours. cc: Robert Perkins MD
--- NOTE | 2019-01-29 13:22 | GENERAL SURGERY PROGRESS NOTE ---
DATE: 01/29/2019 SUBJECTIVE: He is doing well. He is sitting in the chair. He is tolerating a diet. Bowels are functioning. He is voiding. No fevers. No tachycardia. OBJECTIVE: Vital signs: Blood pressure 171/75. Abdomen: Mildly distended but soft. LABORATORY DATA: No new labs this morning other than a glucose 150, but his white count was normal yesterday with a stable hematocrit at 30. ASSESSMENT AND PLAN: An 83-year-old gentleman status post laparoscopic cholecystectomy with washout of abdominal hematoma postoperatively, doing very well. No RVR. His pulmonary status is improving. I have encouraged him to be out of bed today, act like he is at home. We will stop his IV medications and fluids and plan on possible discharge tomorrow. cc: MD Robert Garcia MD
[2019-01-29] MEDS: CRESTOR PO SCH (20:53)
[2019-01-30] MEDS: ZOFRAN IV PRN (05:27)
[2019-01-30] MEDS: ZOSYN 3.375 GM in NS 50 ML IV SCH ×3 (05:27)
[2019-01-30] MEDS: HUMULIN R SUBQ SCH ×2 (06:40→11:55)
[2019-01-30] MEDS: CORDARONE PO SCH ×2 (09:42→13:32)
[2019-01-30] MEDS: FLOMAX PO SCH (09:42)
[2019-01-30] MEDS: LOPRESSOR PO SCH (09:42)
[2019-01-30] MEDS: PERIDEX MT SCH (09:45)
[2019-01-30 12:27] VITALS: BP 178/79
[2019-01-30] MEDS ORDERED: NORVASC PO SCH (13:15)
--- NOTE | 2019-01-30 13:22 | PROGRESS NOTE ---
DATE: 01/30/2019 SUBJECTIVE: Mr. Kathleen is feeling better. He had a better night. Abdomen feeling a little better. OBJECTIVE: Vitals: Temperature 98.4 degrees, remained afebrile, pulse 64, respirations 20, blood pressure 178/79. Eyes: Pupils are equal and round. Neck: No distended neck veins. Lungs: Are clear in all lung humphrey. Cardiovascular: Regular rhythm and rate without murmur or S3. Abdomen: Soft. Skin: Warm and dry. URINE OUTPUT: 1800 mL. ASSESSMENT AND PLAN: 1. An 83-year-old status post laparoscopic cholecystectomy with washout of abdominal hematoma postoperative. He is doing well and making progress. 2. Recent atrial fibrillation. Converted back to sinus rhythm. Rate is controlled. 3. Status post previous aortic valve replacement 2012. Bioprosthesis for severe aortic stenosis. He also had removal of a mass around the mitral valve and recent echocardiogram has mild mitral stenosis. 4. He had coronary angiography in 2012 with no significant coronary lesions. 5. Hypertension. 6. Bilateral renal artery stents. 7. Diabetes mellitus type 2. Sugars under good control. 8. Nutrition looks good. Continue to increase sitting up in a chair and activity. 9. Review of his orders: I do not see any change. Blood pressure systolic is still running a little bit high, but review of his lab from yesterday over the . Looking at his medications, he is on amiodarone 200 mg t.i.d., Lopressor 50 mg b.i.d., Zosyn 3.375 g IV q.6 hours. He has bilateral renal stents, so I may avoid GEORGES inhibitors, but that may be actually the drug of choice for blood pressure, but I will try Norvasc and see how he does on 5 mg twice a day. Note that his systolic pressures have consistently been above 70. cc: Robert Perkins MD
--- NOTE | 2019-01-30 16:01 | GENERAL SURGERY PROGRESS NOTE ---
DATE: 01/30/2019 SUBJECTIVE: Patient doing well Tolerating a diet. No pain. He is ambulating. He showered. OBJECTIVE: No fevers. No tachycardia. Blood pressure 178/79. He is on room air. He is saturating 97%. He is alert. LABORATORY DATA: I reviewed his labs. Glucose 153. His hematocrit has been stabilized through checks. ASSESSMENT AND PLAN: An 83-year-old gentleman is status post laparoscopic cholecystectomy with subsequent hematoma evacuation. Patient of Dr. Corley. He is doing well. I will let him go home with a 5-day course of antibiotics for possible pneumonia he obtained while inpatient. Augmentin 500 t.i.d. Otherwise, he will see Dr. Corley this week and follow up. I have given him detailed instructions. He has a very attentive family. cc: MD Robert Garcia MD [email or web address]
--- NOTE | 2019-02-14 10:06 | DISCHARGE SUMMARY ---
ADMISSION DATE: 01/22/2019 DISCHARGE DATE: 01/30/2019 ADMITTING DIAGNOSIS: Acute cholecystitis with cholelithiasis. DISCHARGE DIAGNOSIS: Acute cholecystitis with cholelithiasis. PRINCIPAL PROCEDURE: 1. Laparoscopic cholecystectomy with intraoperative cholangiogram. 2. Diagnostic laparoscopy with evacuation of intra-abdominal hematoma on 01/25/2019. DISCHARGE DISABILITY: Full. DISCHARGE DISPOSITION: He will return to our outpatient offices in 10 to 14 days for followup. DISCHARGE DIET: Regular. DISCHARGE MEDICATIONS: He is to return to his home medications. HOSPITAL COURSE: Mr. Rick Kathleen is an 83-year-old, white male who recently was hospitalized in [facility] for cardiac evaluation. He presented to our emergency department on 01/22/2019 with upper abdominal pain, nausea, and vomiting. An abdominal and pelvic CT scan suggested acute cholecystitis. We were asked to evaluate him in the emergency department. On the evening of his presentation, he underwent a laparoscopic cholecystectomy with intraoperative cholangiogram. His gallbladder was acutely inflamed and was fragile, and had stones within it. We did a laparoscopic cholecystectomy but did not do an intraoperative cholangiogram. We did leave a 10 flat Mark-Keyes drain in the right upper quadrant because of his acute infection. In the morning of postop day 1, he had some bleeding around the LEIDY drain. I was called to see the patient. We evaluated him and thought it could be a skin bleeding, and placed a stitch. The LEIDY drain was removed. However, he continued to not feel well. His hematocrit dropped. We asked the hospitalist and tele rn to evaluate him. We felt we did have some intra-abdominal postoperative bleeding. We were going to treat it conservatively. He continued not to progress postoperatively. He even had to be transferred to the ICU because of atrial fibrillation. On 01/25/2019, he was taken back to the operating room where he underwent a diagnostic laparoscopy and removal of a hematoma in the right upper quadrant of his abdomen in the area of his previous cholecystectomy. He then started to progress. He did have to receive blood transfusions. He was able to begin tolerating a diet and started getting stronger and clinically improving. It was felt safe on 01/30/2019 to discharge him home under the care of his family. His daughter was a respiratory therapist. He will follow up in our outpatient offices in 10 to 14 days. He knows to contact us with any problems. cc: MD Robert Anaya MD
== END 2019-01-30 14:30 | disposition home or self-care (01) | DRG 418 ==
LOC: ED 09:26 → ICU 18:05 → 4N 18:28 → ICU 01-24 18:28 → 4N 01-28 23:15
PROVIDERS: ADMIT Emergency Medicine; ATTEND Surgery
CPT/HCPCS: 36430; 71010; 71045; 74022; 74177; 74300; 77001; 80048; 80053; 81001; 82150; 82550; 82805; 82948; 83605; 83690; 83735; 84484; 85014; 85018; 85025; 85610; 85730; 86850; 86900; 86901; 86920; 87040; 87077; 87088; 87186; 88304; 93005; 93010; 93306; 94640; 94761; 94799; 96361; 96365; 96375; 99285; A9270; C1751; C8929; J0131; J0282; J0330; J1100; J1170; J2270; J2405; J2543; J2550; J3010; J3480; J7030; J7040; J7050; J7060; J7120; P9016; Q9957; Q9966; Q9967; XXXXX

== ENCOUNTER 2019-03-12 12:15 | Inpatient (IN) ==
[2019-03-12] MEDS ORDERED: TYLENOL PO ONE (12:40)
[2019-03-12 13:05] LABS: BASO# 0.01 X1000 (0.0-0.2); BASO% 0.1 % (0.0-0.8); EOS# 0.05 X1000 (0.0-0.7); EOS% 0.7 % (0.0-10.0); HEMATOCRIT 39.9 % (42.0-52.0); HEMOGLOBIN 13.2 g/dL (14.0-18.0); LYMPH# 0.43 X1000 (1.2-3.4); LYMPH% 6.1 % (20.5-51.1); MCH 27.3 PG (27-31); MCHC 33.1 g/dL (33-37); MCV 82.4 FL (81-99); MONO% 8.5 % (1.7-9.3); MPV 13.1 FL (7.4-10.4); NEUT# 5.99 X1000 (1.4-6.5); NEUT% 84.6 % (42.2-75.2); PLT 145 X1000 (130-400); RBC 4.84 XMIL (4.7-6.1); RDW 15.1 % (11.5-14.5); WBC 7.08 X1000 (4.8-10.8)
--- NOTE | 2019-03-12 13:17 | Diag Imaging Result Doc PS360 ---
EXAM: CHEST-1 VIEW INDICATION: pain TECHNIQUE: One view COMPARISON: 01/27/2019 FINDINGS: The lungs are grossly clear. There is no discrete pleural fluid collection or pneumothorax. There are stable median sternotomy wires and a prosthetic heart valve. The cardiomediastinal silhouette and central vasculature are grossly unremarkable, otherwise. IMPRESSION: No evidence of acute pathology by plain radiograph. Electronically signed by Octavio Dinh 03/12/2019 1:15 PM
[2019-03-12 13:33] LABS: AGAP 12; ALB/GLOB RATIO 1.2; ALBUMIN 3.6 g/dL (3.5-5.0); ALKALINE PHOSPHATASE 104 U/L (32-122); BUN 19 mg/dL (8-22); CHLORIDE 99 mmol/L (98-107); COSMO 273; CREATININE 1.1 mg/dL (0.7-1.2); ESTIMATED GFR > 60; GLUCOSE 139 mg/dL (70-104); GOT 17 U/L (10-34); GPT 27 U/L (10-44); POTASSIUM 3.5 mmol/L (3.5-5.1); SODIUM 134 mmol/L (136-145); TCO2 23 mmol/L (25-35); TOTAL BILIRUBIN 0.98 mg/dL (0.20-1.00); TOTAL PROTEIN 6.5 g/dL (6.3-8.3)
[2019-03-12 14:19] LABS: INR 1.16; PROTIME 15.8 Seconds (11.0-16.0)
[2019-03-12 14:20] LABS: PTT 41.1 Seconds (22.3-41.8)
[2019-03-12 15:07] LABS: URINE SOURCE CLEAN CATCH
--- NOTE | 2019-03-12 15:16 | Diag Imaging Result Doc PS360 ---
EXAM: CT ABD/PELVIS W/IV CONT ONLY INDICATION: abdo pain TECHNIQUE: This exam was performed using automated exposure control, adjustment of mA or kV according to patient size, and/or use of iterative reconstruction technique. COMPARISON: 01/22/2019 FINDINGS: There is pleural thickening and trace pleural fluid on the right that is stable. There is subsegmental atelectasis and/or mild scarring at both lung bases. There has been an interval cholecystectomy. There are cholecystectomy clips in the gallbladder fossa. There is a small amount of fluid in the gallbladder fossa measuring 2.5 x 1.7 cm axially that probably represents a small postsurgical seroma. Given the small size, a biloma is less likely. A small abscess is also unlikely but cannot be completely excluded in the right clinical scenario. There are a few simple cysts associated with the liver. There is no evidence of significant biliary dilatation. There are stable simple appearing renal cysts bilaterally. The urinary bladder is nondistended. The appendix is normal. There is moderate uncomplicated sigmoid colonic diverticulosis. There is no focal bowel wall thickening and no evidence of bowel obstruction. The remainder of the GI tract is essentially unremarkable. There is extensive aortoiliac atherosclerotic calcification and bilateral renal artery stents, stable. There are degenerative changes throughout the spine and there are stable chronic bilateral pubic rami fractures. IMPRESSION: 1.Interval cholecystectomy with a small residual fluid collection in the gallbladder fossa. This probably represents a small postsurgical seroma. Please see above discussion. 2.Other incidental/nonacute findings detailed above. Electronically signed by Octavio Dinh 03/12/2019 3:13 PM
[2019-03-12 15:20] LABS: BILIRUBIN URINE NEGATIVE (NEGATIVE); BLOOD URINE TRACE (NEGATIVE); COLOR YELLOW; GLUCOSE URINE NEGATIVE (NEGATIVE); KETONE URINE NEGATIVE (NEGATIVE); LEUKOCYTES URINE NEGATIVE (NEGATIVE); NITRITE URINE NEGATIVE (NEGATIVE); PROTEIN URINE 70 mg/dL (NEGATIVE); TURBIDITY URINE CLEAR (CLEAR); UROBILINOGEN URINE NORMAL (NORMAL)
[2019-03-12 15:21] LABS: UR EPITHELIAL CELLS <10 /HPF (<10); URINE BACTERIA NEGATIVE /HPF; URINE RBC <10 /HPF (<10); URINE WBC <10 /HPF (<10)
[2019-03-12] MEDS ORDERED: ZOSYN 3.375 GM in NS 50 ML IV ONE (15:48)
--- NOTE | 2019-03-12 15:49 | PROVIDER DOCUMENTATION ---
This chart was entered by Carlee Yip Scribe, acting as scribe for John Boss MD. HPI-Abdominal Pain/GI Problem - General Stated Complaint: n/v/fever x 1 day Time Seen by Provider: 03/12/19 12:25 Source: patient Allergies/Adverse Reactions: Patient Allergies Allergy/AdvReac Type Severity Reaction Status Date / Time niacin Allergy Intermediate burning Verified 01/22/19 09:32 Home Medications: Home Medication List Medication Instructions Recorded Confirmed Last Taken Type Losartan [Cozaar] 100 mg PO QPM 08/03/16 01/22/19 01/21/19 History Diltiazem HCl [Dilt-Xr] 240 mg PO DAILY 08/07/18 01/22/19 01/22/19 History Metformin HCl 500 mg PO BID #30 tab 08/07/18 01/22/19 01/21/19 Rx Aspirin [Lo-Dose Aspirin EC] 81 mg PO DAILY 01/22/19 01/22/19 01/21/19 History Ergocalciferol (Vitamin D2) 50,000 unit PO ORDERED 01/22/19 01/22/19 01/17/19 History [Vitamin D2] Metoprolol Succinate [Toprol Xl] 1 tab PO DAILY 01/22/19 01/22/19 01/21/19 History Rosuvastatin Calcium 1 tab PO HS 01/22/19 01/22/19 01/21/19 History Amoxicillin/Potassium Clav 1 ea PO TID #15 tab 01/30/19 Unknown Rx [Augmentin 500-125 Tablet] - History of Present Illness-ABD Nature of Presenting Problems: 83 y/o male presents to the ED with complaint of epigastric pain, nausea, vomiting, and fever times two days. Denies diarrhea and constipation with last bowel movement this am and normal. Family states the patient had cholecystectomy by Dr. Corley one month ago with complications during recovery. Denies sick contacts. Allergy to Niacin. Abdominal Pain Onset Location: reports: epigastric Onset/Duration: reports: 2 days ago Timing: reports: still present Activities at Onset: reports: light activity Associated Symptoms: reports: fever/chills, nausea, vomiting. denies: constipation, diarrhea Last BM: this morning Dark Stools Present?: reports: none noticed Rectal Bleeding: reports: none Rectal Pain: reports: none Similar Symptoms Previously?: No Recently seen or treated by another doctor?: No Review of Systems - Adult - REVIEW OF SYSTEMS - ADULT Constitutional: reports: fever. denies: weight gain, weight loss Eyes: reports: no symptoms reported Ears, Nose, Mouth & Throat: reports: no symptoms reported Cardiovascular: reports: no symptoms reported Respiratory: reports: no symptoms reported Gastrointestinal: reports: abdominal pain (epigastrum), nausea, vomiting. denies: constipation, diarrhea Genitourinary: denies: dysuria, discharge, frequency Musculoskeletal: reports: no symptoms reported Integumentary: reports: no symptoms reported Neurological: reports: no symptoms reported Psychiatric: reports: no symptoms reported Endocrine: reports: no symptoms reported Hematologic/Lymphatic: reports: no symptoms reported Allergic/Immunologic: reports: no symptoms reported All Other Systems: Reviewed and Negative Past History - Adult - PAST MEDICAL HISTORY-ADULT Review of Records: reports: Old Records Reviewed, Nursing Assessment Review, Medications Reviewed Cardiovascular: reports: A-Fib, HTN, heart valve problem, hyperlipidemia Respiratory: reports: asthma Gastrointestinal: reports: GERD - PRIOR SURGERIES/PROCEDURES Surgical/Procedure History: reports: other (cataract removal) - IMMUNIZATION STATUS Childhood Immunizations: See Nurse Assessment Flu Vaccine: See Nurse Assessment - FAMILY HISTORY Family History: reviewed, not pertinent - SOCIAL HISTORY Smoking: other (former smoker) Substance Use: alcohol Alcohol Use Frequency: once a month Living Situation: family Physical Exam-General - PHYSICAL EXAM-ADULT Initial Vital Signs Reviewed: Yes - CONSTITUTIONAL General Appearance: alert. negative: appears well - EYES Eyes: PERRL/EOMI - HEAD, EARS, NOSE, MOUTH & THROAT HENMT: normocephalic/atraumatic, moist mucous membranes - NECK Neck: full range of motion, supple - RESPIRATORY Respiratory: lungs clear, normal breath sounds. negative: rales, rhonchi, wheezing - CARDIOVASCULAR Cardiovascular: no gallop, no JVD, tachycardia - GASTROINTESTINAL (ABDOMEN) Abdominal Exam: normal bowel sounds, soft, tenderness (epigastrum), hernia (small umbilical), other (well healing scars from laparoscopic cholecystectomy) - SKIN Integumentary: diaphoresis, other (well healing abdominal scars from laparoscopic cholecystectomy) - NEUROLOGIC Neurologic: grossly normal Progress - PLAN OF CARE/RESULTS Progress/Plan/Lab Results: Orders Category Date Time Status CBC WITH ELECTRONIC DIFF [HEME] Stat Lab 03/12/19 12:25 Uncollected COMPREHENSIVE METABOLIC PANEL [CHEM] Stat Lab 03/12/19 12:25 Uncollected LACTATE, PLASMA [CHEM] Stat Lab 03/12/19 12:25 Uncollected PROTIME WITH INR [COAG] Stat Lab 03/12/19 12:25 Uncollected PTT [COAG] Stat Lab 03/12/19 12:25 Uncollected URINALYSIS [URINALYSIS] Stat Lab 03/12/19 12:25 Uncollected 1413 Discussed x-ray findings with the patient and family in the room. Also discussed normal white count, will do flu test. 1518 Flu A and B negative. Awaiting urine results. Result Diagrams: 03/12/19 12:35 03/12/19 12:35 - EKG 1 Time of EKG reading by physician:: 13:10 EKG Read and Signed by:: John Boss EKG Interpretation (*Must complete 3 of following elements*): Abnormal Rate: 104 Rhythm: sinus tachycardia ST Wave: non-specific ST changes (and T wave abnormality) - XRAY 1 XRAY Study: Chest (EXAM: CHEST-1 VIEW INDICATION: pain TECHNIQUE: One view COMPARISON: 01/27/2019 FINDINGS: The lungs are grossly clear. There is no discrete pleural fluid collection or pneumothorax. There are stable median sternotomy wires and a prosthetic heart valve. The cardiomediastinal silhouette and central vasculature are grossly unremarkable, otherwise. IMPRESSION: No evidence of acute pathology by plain radiograph. Electronically signed by Octavio Dinh 03/12/2019 1:15 PM) - CT/MRI 1 CT Study: Abdomen, Pelvis Impression: Abnormal, See EMR Report (EXAM: CT ABD/PELVIS W/IV CONT ONLY INDICATION: abdo pain TECHNIQUE: This exam was performed using automated exposure control, adjustment of mA or kV according to patient size, and/or use of iterative reconstruction technique. COMPARISON: 01/22/2019 FINDINGS: There is pleural thickening and trace pleural fluid on the right that is stable. There is subsegmental atelectasis and/or mild scarring at both lung bases. There has been an interval cholecystectomy. There are cholecystectomy clips in the gallbladder fossa. There is a small amount of fluid in the gallbladder fossa measuring 2.5 x 1.7 cm axially that probably represents a small postsurgical seroma. Given the small size, a biloma is less likely. A small abscess is also unlikely but cannot be completely excluded in the right clinical scenario. There are a few simple cysts associated with the liver. There is no evidence of significant biliary dilatation. There are stable simple appearing renal cysts bilaterally. The urinary bladder is nondistended. The appendix is normal. There is moderate uncomplicated sigmoid colonic diverticulosis. There is no focal bowel wall thickening and no evidence of bowel obstruction. The remainder of the GI tract is essentially unremarkable. There is extensive aortoiliac atheros clerotic calcification and bilateral renal artery stents, stable. There are degenerative changes throughout the spine and there are stable chronic bilateral pubic rami fractures. IMPRESSION: 1.Interval cholecystectomy with a small residual fluid collection in the gallbladder fossa. This probably represents a small postsurgical seroma. Please see above discussion. 2.Other incidental/nonacute findings detailed above. Electronically signed by Octavio Dinh 03/12/2019 3:13 PM) - CONSULTS/PCP/HOSPITALIST Notification #1 *Consult/PCP/Hospitalist*: HospitalistNubia Time Discussed: 15:43 Reason/Comments: fever, tachycardia, abdo pain Consult Disposition: Admit Departure - Departure Date of Disposition Decision: 03/12/19 Time of Disposition Decision: 15:47 DIAGNOSIS: Abdominal pain of unknown etiology, Fever Disposition: ADMITTED INPATIENT 09 Certified Medical Emergency: Emergent Condition: Fair Referrals and Follow-Ups: Abiola Madera MD [Primary Care Provider] - - Critical Care Note This patient required my direct & personal management of CC.: No Attestation - Physician/ KAILASH Attestation Patient care was provided by Advanced Practice Provider:: No The physician spent face to face time with patient:: Yes Advanced Practice Provider documentation review:: Supervising physician onsite a nd consulted in the evaluation and care of this patient. The physician did have a face to face encounter with the patient. This chart was documented by the indicated scribe, (Carlee Yip, Mehrdad) and accurately reflects the services I performed and decisions made by me, John Boss MD, as attested by the provider's signature.
[2019-03-12] MEDS: NS 1,000 ML IV SCH (18:45)
--- NOTE | 2019-03-12 20:55 | HISTORY AND PHYSICAL ---
PRIMARY CARE MEDICAL DOCTOR: Abiola Madera. CHIEF COMPLAINT: Weakness and vomiting. HISTORY OF PRESENT ILLNESS: This is an 83-year-old male who presents to the ER with a complaint of weakness with vomiting and fever. The patient's daughter is at bedside and states that they were on vacation in [place] yesterday. The patient started having chills, nausea, and a temp of 99.9 degrees. The daughter bought him Pepto-Bismol where he took 1 dose. She gave him Nauzene an [id number] nausea medication. They subsequently decided to drive home from [place] at that time where they actually made it home at 11pm. This morning the patient woke up and had a fever of 101. He was given Tylenol and Zofran. The daughter checked the patient's O2 saturation with her O2 saturation monitor and his sat was 88% on room air. They decided to bring the patient to the ER at that time. The patient did have a cholecystectomy done on 01/[address] Corley. The patient a few days later after his cholecystectomy developed a collection of blood around the area and had to be taken back to surgery and have a drain placed. The patient did go into atrial fibrillation while in the hospital the last time and was started on diltiazem and Eliquis at that time. The patient states he was discharged home on 01/30 to home with home health. He has been feeling better and getting around with home health and then they decided to go on vacation where subsequently the patient became sick. The patient is lying in the ER stretcher in no acute distress at present time. He is on 2 L nasal cannula O2 sats are within normal range. The patient states he did vomit while in the ER some bile appearing vomit. Abdomen is tender to the touch. It is not distended with bowel sounds present. CT of the abdomen and pelvis was performed in the ER and did show a small residual fluid collection in the gallbladder and the gallbladder fossa. This probably represents a small postsurgical seroma. LABORATORY FINDINGS IN THE ER: White blood cell count showed to be only be 7.08. Serum lactate was only 1.1. Blood cultures were obtained. The patient was given a dose of Zosyn in the ER. PAST MEDICAL HISTORY: 1. Atrial fibrillation. 2. Coronary artery disease. 3. Hyperlipidemia. 4. Diabetes. 5. Hypertension. 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 FAMILY HISTORY: Family history is significant for diabetes. SOCIAL HISTORY: The patient lives in [place] with his spouse. Denies any smoking or drug abuse. States he does occasionally drink a small amount of alcohol. ALLERGIES: Niacin. HOME MEDICATIONS: Eliquis 2.5 mg p.o. daily, diltiazem 120 mg p.o. daily, Losartan 100 mg p.o. at bedtime, and metformin 500 mg p.o. b.i.d. LABORATORIES AND DIAGNOSTICS: White blood cell count 7.08, hemoglobin 13.2, hematocrit 39.9, platelet count 145,000. PT 15.8, INR 1.16, PTT 41.1. Sodium 134, potassium 3.5, BUN 19, creatinine 1.1. GFR greater than 60. Glucose 139, calcium 9.0, total bilirubin 0.9, AST is 17, ALT is 27, alkaline phosphatase 24. Plasma lactate 1.1. Urinalysis is negative. Chest x-ray shows no evidence of acute pathology. CT scan shows interval cholecystectomy with a small residual fluid collection in the gallbladder fossa. This probably represents a small postsurgical seroma. REVIEW OF SYSTEMS: A 14-point review of systems was obtained and all are negative except for what is stated above in the HPI. PHYSICAL EXAM: VITAL SIGNS: Temperature 98.8 degrees, pulse rate 80, respiratory rate 18, blood pressure 106/56, and O2 saturation is 100% on 2 L nasal cannula. GENERAL: This is an 83-year-old male who is lying i on the ER stretcher in no acute distress on 2 L nasal cannula. The patient is well nourished. HEENT: Head is atraumatic, normocephalic. Pupils equally round and reactive to light. Mucous membranes are dry. No dentition. NECK: Neck is supple. No lymphadenopathy. Trachea is midline. No JVD. CARDIOVASCULAR: No murmurs, gallops, or rubs noted. Regular rate and rhythm. RESPIRATORY: Lung sounds are clear with equal chest expansion. The patient is somewhat tachypneic. Respirations are non-labored. The patient is on 2 L nasal cannula. No accessory muscle use is noted. GASTROINTESTINAL: Soft, nontender, nondistended. Bowel sounds are present. GENITOURINARY: The patient is voiding without difficulty. Urine is clear and yellow. NEUROLOGIC: The patient is awake, alert, and oriented. Able to follow all commands. All sensation present. Cranial nerves intact. MUSCULOSKELETAL: Full distal strength noted. No abnormalities. EXTREMITIES: No clubbing, cyanosis, or edema noted. DP and PT pulses are present. SKIN: Warm, dry, and intact. No rashes or bruises. ASSESSMENT: 1. Nausea/ vomiting and fever. 2. Status post cholecystectomy 1 month ago with fluid collection in the gallbladder fossa. 3. Atrial fibrillation. 4. Diabetes. 5. Coronary artery disease. 6. Hypertension. PLAN: We will admit the patient to the medical floor. Start the patient on some IV fluid. Zosyn is ordered for antibiotic selection. We will consult Dr. Corley. Start the patient on Zofran for nausea. Home medications reordered. We will obtain labs in a.m. Blood culture, urine culture obtained. We will give Tylenol for fever. Dictated by MARCELINO Porter for Mario Brown MD cc: MD Elisabeth Tom MD I have seen and examined Mr Kathleen today. Daughter was at bedside. Patient presents with sepsis syndrome. I have also reviewed his labs and imagining studies. He will be admitted to ICU, adequate fluid resuscitation and antimicrobial coverage. cultures have been done. I agree with the above HPI and the plan reflects my opinion discussed with the LAB CLERK. MARCOS MCBRIDE
[2019-03-12] MEDS: ZOSYN 3.375 GM in NS 50 ML IV SCH (22:40)
[2019-03-13] MEDS: ELIQUIS PO SCH ×3 (00:27→20:23)
[2019-03-13] MEDS: TYLENOL PO PRN (02:43)
[2019-03-13] MEDS: ZOFRAN IV PRN ×2 (02:44→05:19)
[2019-03-13] MEDS: ZOSYN 3.375 GM in NS 50 ML IV SCH ×4 (03:43→23:20)
[2019-03-13] MEDS ORDERED: TORADOL IV ONE (03:56)
[2019-03-13] MEDS ORDERED: VANCOMYCIN IV PER PHARMACY MISC SCH (05:30)
[2019-03-13] MEDS: NS 1,000 ML IV SCH ×2 (06:33→23:18)
[2019-03-13 06:49] LABS: BASO# 0.01 X1000 (0.0-0.2); BASO% 0.2 % (0.0-0.8); EOS# 0.03 X1000 (0.0-0.7); EOS% 0.5 % (0.0-10.0); HEMOGLOBIN 12.4 g/dL (14.0-18.0); IMM GRAN# 0.02 X1000 (0.0-0.04); IMM GRAN% 0.3 % (0.0-0.5); LYMPH# 0.39 X1000 (1.2-3.4); LYMPH% 6.4 % (20.5-51.1); MCH 27.5 PG (27-31); MCHC 32.6 g/dL (33-37); MCV 84.3 FL (81-99); MONO# 0.26 X1000 (0.11-0.59); MONO% 4.2 % (1.7-9.3); NEUT# 5.41 X1000 (1.4-6.5); NEUT% 88.4 % (42.2-75.2); PLT 113 X1000 (130-400); RBC 4.51 XMIL (4.7-6.1); RDW 15.3 % (11.5-14.5); WBC 6.12 X1000 (4.8-10.8)
[2019-03-13 06:52] LABS: INR 1.28
[2019-03-13 07:01] LABS: CALCIUM 8.6 mg/dL (8.8-10.2); CREATININE 1.3 mg/dL (0.7-1.2); MAGNESIUM 1.6 mg/dL (1.5-2.7); POTASSIUM 2.6 mmol/L (3.5-5.1)
[2019-03-13] MEDS ORDERED: VANCOMYCIN 2,000 MG in NS 500 ML IV ONE (08:00)
--- NOTE | 2019-03-13 08:37 | CONSULTATION ---
DATE OF CONSULTATION: 03/13/2019 HISTORY OF PRESENT ILLNESS: Mr. Rick Kathleen is an 83-year-old, white male on whom I have performed a laparoscopic cholecystectomy in January of 2019. His surgery was complicated by postoperative bleeding requiring him to go back to surgery for a diagnostic laparoscopy and evacuation of intra-abdominal clot. That was on 01/25/2019. I have seen him in our outpatient office since that time and he seemed to be doing well but over the last several days, he has had nausea and fever, causing his family to come home early from a vacation because of his sickness. He was evaluated in the emergency department yesterday which included a CT scan of his abdomen and pelvis which showed just a small amount of fluid in the gallbladder fossa. His white blood cell count was normal. Liver function tests were within normal limits but he has had blood cultures with gram negative cocci. He was admitted, placed on IV antibiotics, and we were asked to evaluate him. PAST MEDICAL HISTORY: He has recently been evaluated for his heart and pig valve at [facility] prior to his cholecystectomy. He has had a history of stents in his ureters, 2006. He has been treated for a fractured pelvis. He has a history of atrial fibrillation, coronary artery disease, hyperlipidemia, diabetes, hypertension. MEDICATIONS: Include Eliquis, diltiazem, losartan, and metformin. ALLERGIES: Niacin. SOCIAL HISTORY: He has a very attentive family. His daughter helps with his healthcare. He does not smoke. REVIEW OF SYSTEMS: Review of systems was performed and was negative except for the history of present illness. FAMILY HISTORY: Noncontributory. PHYSICAL EXAMINATION: General: Mr. Kathleen is an older, white male. He does not appear to be pale. He is awake, cooperative, seems to be comfortable this morning. He has no jaundice. No oral lesions. Satisfactory dentition. No cervical or supraclavicular lymphadenopathy. His heart has an irregular rate. Lungs were clear to auscultation and percussion bilaterally. Abdomen: Soft. There is no tenderness. His trocar sites are well-healed. He had no costovertebral tenderness. Rectal: Examination was not performed. He does have palpable femoral pulses. He has no significant peripheral edema. Neurological: He is alert and oriented x3, and appropriate. LABORATORY DATA: His white blood cell count is normal. Liver function tests were normal. CT scan of his abdomen and pelvis was essentially normal. He does have positive blood cultures. The etiology of these is unknown. PLAN: He is on IV Zosyn and the fluids. We will allow him to begin clear liquids. I agree with antibiotics and medical evaluation of his positive blood cultures. cc: Elisabeth Corley MD
[2019-03-13] MEDS ORDERED: ELIQUIS PO SCH (09:00)
[2019-03-13] MEDS ORDERED: CARDIZEM CD PO SCH (09:00)
[2019-03-13] MEDS ORDERED: CARDIZEM 100 MG/NS 100 MG/100 ML IVPB IV SCH (12:45)
[2019-03-13] MEDS ORDERED: KLOR-CON PO ONE (13:04)
[2019-03-13] MEDS ORDERED: MAGNESIUM SULFATE 4 GM/S.W.I. 4 GM/100 ML IVPB IV ONE (14:37)
--- NOTE | 2019-03-13 15:07 | PROGRESS NOTE ---
DATE: 03/13/2019 SUBJECTIVE: Patient is resting in bed. OBJECTIVE: Vital signs: Temperature 98.5 degrees, pulse 138, respiratory rate 20, blood pressure is 116/76, oxygen saturation is 98%. HEENT: Atraumatic, normocephalic. Cardiovascular system: S1, S2. Respiratory system: Has evidence of good air entry bilaterally. Abdomen: Soft, nontender. No masses felt. Extremities: No evidence of edema. Central nervous system: No obvious focal deficits noted. LABS: WBC 6.1, hematocrit is 38, with a platelet count of 113,000. Sodium is 140, potassium 2.6, chloride is 102, bicarb 24, BUN is 23, creatinine is 1.3. ASSESSMENT AND PLAN: 1. Probable sepsis. Maintain patient on broad-spectrum antibiotics as well as intravenous fluids. Follow up on cultures. 2. Atrial fibrillation with rapid ventricular rate. Maintain patient on a rate-controlling agent. Consult with Cardiology. 3. Diabetes mellitus. Patient is on sliding scale insulin. Monitor blood sugar levels. 4. Coronary artery disease. Asymptomatic. 5. Hypertension, controlled. 6. Deep vein thrombosis prophylaxis. Continue apixaban. cc: Abdi Siddiqui MD
[2019-03-13] MEDS: POTASSIUM CHLORIDE 20 MEQ/SWI 20 MEQ/100 ML IVPB IV SCH ×2 (16:32→18:22)
--- NOTE | 2019-03-13 19:48 | CARDIOLOGY CONSULTATION ---
DATE: 03/13/2019 CONSULTATION REQUESTED BY: Hospitalist. REASON FOR CONSULTATION: Irregular heartbeat, atrial fibrillation. CHIEF COMPLAINT: Diarrhea, nausea, vomiting. HISTORY: Mr. Kathleen presented to the emergency room just yesterday at about 12 noon. Apparently, the patient had been at the beach in [place] and he had been eating some seafood there and then he developed diarrhea, nausea, vomiting and fever. Presented to the ER. They did a CT of the abdomen that shows interval cholecystectomy with small residual fluid collection in the gallbladder fossa. The patient was given IV fluids. His potassium initially was checked at 3.5 and then today was down to 2.6. He developed atrial fibrillation with rapid response and they called us in consultation. The patient has had a previous bout of the same back on 01/24/2019, which is 2 months ago, when he presented for laparoscopic cholecystectomy that ended up being complicated by intraabdominal hematoma around the surgical bed. That was treated by evacuation of the hematoma, antibiotics and so forth. Eventually he converted back to sinus rhythm. The patient has had previous bouts of atrial fibrillation many years ago. The patient has had aortic valve replacement in February 2013 at [facility].Coronary arteries normal at the time of [facility]. He has had a followup echocardiogram in 2018 that showed normal function of his prosthetic aortic valve. He has hypertension. He has had diabetes mellitus type 2. He has had renal stents in the past. The patient has chronic kidney disease. SURGICAL HISTORY: In addition to aortic valve replacement includes the recent cholecystectomy. FAMILY HISTORY: Noncontributory. SOCIAL HISTORY: He is , retired from [employer]. He has 4 children. He has been to his for 65 years. REVIEW OF SYSTEMS: Really noncontributory at this time. He has re-presented with acute illness. He has been essentially getting better since he left the hospital after his complicated cholecystectomy. CURRENT MEDICATIONS: Include apixaban 1 tablet twice a day, cholecalciferol 10,000 daily, diltiazem 120 mg daily, losartan 100 mg at bedtime, metformin 500 twice a day. PHYSICAL EXAMINATION: Right now he has converted. His pulse is 86, temperature is 99 degrees, blood pressure is 111/58, respirations 26. He is awake, alert, in no distress.HEENT: Unremarkable. Chest: Sounds basically clear to auscultation and percussion. Heart: Sounds are regular, rhythmic. I do not hear any significant gallop or murmur. Abdomen: Soft. Bowel sounds diminished. Extremities: Show good pulses. No edema. Neurologic: Nonfocal. Moves 4 extremities. IMPRESSION: 1. Patient developing atrial fibrillation with rapid response in the midst of profound hypokalemia related to ongoing acute gastroenteritis with dehydration. 2. Status post aortic valve replacement. 3. History of normal coronary arteries. 4. History of renal stents in the past for severe hypertension and renal artery stenosis. 5. History of diabetes mellitus. RECOMMENDATION: At this time, I would suggest to try to optimize this patient's sodium, potassium, magnesium by administration of IV supplements and keep him on his usual medications. This is evidently an acute condition that should resolve and hopefully patient will be back to his normal baseline. We will follow up EKG in the morning and also BNP and magnesium. cc: Jaleel Carmona MD MTDD
[2019-03-14] MEDS: ZOSYN 3.375 GM in NS 50 ML IV SCH ×3 (05:45→18:01)
--- NOTE | 2019-03-14 07:24 | EKG Report ---
Test Performed on : 03/14/2019 06:43:50 AM Test Reason : ATRIAL FIBRILLATION Blood Pressure : / mmHG Vent. Rate : 076 BPM Atrial Rate : 076 BPM P-R Int : 182 ms QRS Dur : 080 ms QT Int : 414 ms P-R-T Axes : 071 055 074 degrees QTc Int : 465 ms Normal sinus rhythm. Nonspecific T wave abnormality Prolonged QT Abnormal ECG When compared with ECG of 13-MAR-2019 12:49, (Unconfirmed) Vent. rate has decreased BY 63 BPM Confirmed by Gregorio CHERRY, Robert Jack ([id number]) on 03/15/2019 10:01:05 AM
[2019-03-14 07:33] LABS: CALCIUM 8.6 mg/dL (8.8-10.2); CREATININE 1.6 mg/dL (0.7-1.2); MAGNESIUM 2.6 mg/dL (1.5-2.7)
[2019-03-14] MEDS ORDERED: CARDIZEM 100 MG in NS 80 ML IV SCH (07:45)
[2019-03-14 07:58] LABS: POTASSIUM 3.9 mmol/L (3.5-5.1)
[2019-03-14] MEDS ORDERED: VANCOMYCIN 1,700 MG in NS 250 ML IV SCH (08:00)
[2019-03-14] MEDS: ELIQUIS PO SCH ×2 (08:46→21:21)
[2019-03-14] MEDS: NS 1,000 ML IV SCH (08:46)
--- NOTE | 2019-03-14 09:25 | EKG Report ---
Test Performed on : 03/13/2019 12:44:33 PM Test Reason : AFIB C RVR Blood Pressure : / mmHG Vent. Rate : 139 BPM Atrial Rate : 138 BPM P-R Int : 000 ms QRS Dur : 076 ms QT Int : 314 ms P-R-T Axes : 000 021 120 degrees QTc Int : [address] depression, consider subendocardial injury Nonspecific T wave abnormality Abnormal ECG When compared with ECG of 12-MAR-2019 13:10, (Unconfirmed) premature atrial complexes. are no longer present ST now depressed in Inferior leads Confirmed by Gregorio CHERRY, Robert Jack ([id number]) on 03/15/2019 10:00:36 AM
--- NOTE | 2019-03-14 09:55 | EKG Report ---
Test Performed on : 03/12/2019 1:10:18 PM Test Reason : TACHY Blood Pressure : / mmHG Vent. Rate : 104 BPM Atrial Rate : 104 BPM P-R Int : 174 ms QRS Dur : 076 ms QT Int : 384 ms P-R-T Axes : 070 016 095 degrees QTc Int : 504 ms Sinus tachycardia. with premature atrial complexes. Nonspecific ST and T wave abnormality Abnormal ECG When compared with ECG of 26-JAN-2019 21:03, Sinus rhythm. has replaced Atrial fibrillation. Criteria for Septal infarct are no longer present Unconfirmed Result
[2019-03-14] MEDS ORDERED: SODIUM CHLORIDE 0.9% INJ SCH (10:00)
[2019-03-14] MEDS: PROTONIX PO SCH (10:14)
[2019-03-14] MEDS: CARDIZEM CD PO SCH (10:14)
--- NOTE | 2019-03-14 10:45 | PROGRESS NOTE ---
DATE: 03/14/2019 SUBJECTIVE: Patient resting comfortably in bed. OBJECTIVE: Vital signs: Temperature 98.1 degrees, pulse 77, respirations 24, blood pressure 157/88, oxygen saturation is 94%. HEENT: Atraumatic, normocephalic. Cardiovascular: S1, S2. Respiratory system: Good air entry bilaterally. Abdomen: Soft, nontender. No masses felt. Extremities: No evidence of edema. Central nervous system: No obvious focal deficit noted. LABORATORY DATA: Sodium is 137, potassium 3.9, chloride is 106, bicarb is 19, BUN is 28, creatinine is 1.6. Blood cultures positive for gram-negative rods. ASSESSMENT AND PLAN: 1. Gram-negative bacteremia. Follow up on final Infectious Disease as well as sensitivity of positive blood cultures. Maintain patient on intravenous fluids. Continue antibiotic regimen. 2. Atrial fibrillation with rapid ventricular rate. Continue rate controlling agent. The patient's heart rate now within acceptable limits and the patient can be transitioned to oral agents. 3. Gastrointestinal bleed. The patient is currently on apixaban for anticoagulation for his atrial fibrillation. This may have to be discontinued. Will consult with Gastroenterology. Maintain patient on proton pump inhibitor. Follow up on patient's hemoglobin and hematocrit. Transfuse packed red blood cells if needed. 4. Acute kidney injury. Suspect this may be secondary to nephrotoxicity from vancomycin which I will be discontinuing. We will maintain patient on intravenous fluids. Follow up on renal function. 5. Diabetes mellitus. Continue blood sugar medications as well as sliding scale insulin. 6. Coronary artery disease. Asymptomatic. 7. Hypertension. Controlled. 8. Deep vein thrombosis prophylaxis. Continue to maintain patient on sequential compression devices. cc: Abdi Siddiqui MD
[2019-03-14] MEDS: LOPRESSOR PO SCH (18:06)
--- NOTE | 2019-03-14 20:43 | CARDIOLOGY PROGRESS NOTE ---
DATE: 03/14/2019 CHIEF COMPLAINT: Chills, diarrhea, and irregular heart beat. SUBJECTIVE: Mr. Kathleen converted back to sinus rhythm. He has not had any additional bouts of atrial fibrillation. OBJECTIVE: Vital signs: Blood pressure is 164/82, temperature 97.9, pulse 79, respirations 26. General: He is awake, alert, oriented, in no distress. HEENT: Unremarkable. Chest: Clear to auscultation and percussion. Heart: Sounds are regular and rhythmic. No gallop or murmur. Abdomen: Nontender. No masses or hepatomegaly. Extremities: Show good pulses. No edema. Neurologic: Follows commands. Moves four extremities. BLOOD WORK: He is growing gram-negative rods in the blood. His white count is 6,120. Sodium 137, potassium 3.9, magnesium 2.6, BUN 28, creatinine 1.6. IMPRESSION: 1. Patient who presented with an acute episode of nausea, vomiting, diarrhea, and dehydration. Now he has positive gram-negative rods in the blood. He was probably septicemic. 2. Paroxysmal atrial fibrillation. He has converted to sinus rhythm. 3. Status post aortic valve replacement in 2012 at [facility]. Normal coronary arteries at the time. 4. History of diabetes mellitus. RECOMMENDATIONS: At this time, the patient is stable. I would not suggest to do any further intervention. Perhaps low dose of beta-renetta may be indicated to minimize the risk of recurrent atrial fibrillation. The patient is to be evaluated for source of septicemia, especially gram-negative, and keeping in mind that he just had an issue with cholelithiasis and cholecystectomy. Gastroenterology has been consulted. We will stand by. Please call us if further assistance is needed. cc: Jaleel Carmona MD
[2019-03-14 21:13] LABS: HEMATOCRIT 34.9 % (42.0-52.0); HEMOGLOBIN 11.1 g/dL (14.0-18.0)
--- NOTE | 2019-03-14 21:16 | GASTROENTEROLOGY CONSULTATION ---
DATE: 03/14/2019 REASON FOR CONSULTATION: Nausea, vomiting. HISTORY OF PRESENT ILLNESS: This is an 83-year-old male who presented to the emergency room. Onset of symptoms was last . He had been at [place] on vacation starting last Thursday. Symptoms started , where he had fever, chills, nausea, and vomiting. Records reported fever of 99.9. He took some [id number] medication while he was in on vacation with no improvement in his symptoms. They decided to leave their vacation early and to come home. He came into the emergency room for evaluation. He had a recent cholecystectomy by Dr. Corley in January. This was complicated with bleeding and had to go back to surgery for exploratory laparoscopy and drain placement. While he was in the hospital, he went into atrial fibrillation and was started on diltiazem and Eliquis. The patient had been feeling better and was getting stronger, and so they decided to go on their vacation. During evaluation, patient was found to have gram-negative bacteremia. Patient denies any visible blood in the stool. PAST MEDICAL HISTORY: 1. Atrial fibrillation. 2. Coronary artery disease. 3. Hyperlipidemia. 4. Diabetes. 5. Hypertension. PAST SURGICAL HISTORY: 1. Recent cholecystectomy. 2. Aortic valve replacement with a pig valve. 3. Cardiac catheterization in January 2019. 4. He has bilateral stents to kidneys in 2006. 5. History of fractured pelvis with repair. ALLERGIES: Niacin, causing burning. HOME MEDICATIONS: 1. Eliquis 1 twice a day. 2. Vitamin D 10,000 units daily. 3. Diltiazem 120 mg daily. 4. Cozaar 100 mg every night. 5. Metformin 500 mg twice a day. SOCIAL HISTORY: He is . Denies tobacco or drug use. Reports occasional alcohol. On vacation, he did eat seafood. REVIEW OF SYSTEMS: Per History of Present Illness. PHYSICAL EXAMINATION: Vital Signs: Temperature 97.9 degrees, pulse 79, respirations 26, blood pressure 164/82. General: Patient is awake, alert, in no acute distress. Patient's son is at the bedside. Respiratory: Lung sounds essentially clear. Cardiovascular: Regular rate and rhythm. History of atrial fibrillation, on Eliquis. Abdomen: Soft, nontender. Positive bowel sounds. Extremities: No lower extremity edema noted. Neurologic: Cranial nerves 2 through 12 grossly intact. Patient is awake and alert, oriented to person, place, and time. DIAGNOSTIC RESULTS/LABORATORY: Hematology: WBC 6.12, hemoglobin 12.4, hematocrit 38.0, MCV 84.3, platelet 113,000. Chemistry: Sodium 137, potassium 3.9, chloride 106, CO2 19, BUN 28, creatinine 1.6, glucose 117, calcium 8.6. Coagulation: Protime 17.0, INR 1.28. ASSESSMENT AND PLAN: 1. Gram-negative bacteremia. Patient is on antibiotics. 2. Atrial fibrillation, on medication and Eliquis. 3. Nausea and vomiting have improved, possibly related to gastroenteritis form recent seafood ingestion. Will continue with symptomatic treatment. Continue proton pump inhibitor. Will continue to follow. Further plans will be made according to his progress. Would not recommend endoscopy at present time. His hemoglobin and hematocrit are stable with no evidence of active gastrointestinal bleeding. Patient has been seen by Dr. Fuentes. Thank you for this consultation. Dictated by MARCELINO Chadwick for Rahat Fuentes MD cc: MARCELINO Echols MD [facility]
[2019-03-15] MEDS: LOPRESSOR PO SCH ×3 (01:18→17:29)
[2019-03-15] MEDS: ZOSYN 3.375 GM in NS 50 ML IV SCH ×2 (01:19→05:54)
[2019-03-15] MEDS: NS 1,000 ML IV SCH ×3 (05:55→20:10)
[2019-03-15] MEDS: CARDIZEM CD PO SCH (08:51)
[2019-03-15] MEDS: ELIQUIS PO SCH ×2 (08:51→20:10)
[2019-03-15] MEDS: PROTONIX PO SCH ×2 (08:51→09:32)
[2019-03-15] MEDS: INVANZ 1 GM/NS 1 GM/50 ML IVPB IV SCH (08:58)
--- NOTE | 2019-03-15 13:06 | PROGRESS NOTE ---
DATE: 03/15/2019 SUBJECTIVE: This morning, Mr. Kathleen refers to be feeling a lot better. No more chills. No fever. He said he did have some loose bowel. OBJECTIVE: Vital signs: Blood pressure is 168/79, pulse of 67, respiration is 18, temperature 97.6 degrees, patient is saturating about 93%. On general exam, Mr. Kathleen is an 83-year-old elderly male. He is in bed. He does not seem to be in any cardiopulmonary distress. Mucosa is pink and moist. Anicteric. Acyanotic. Neck is supple. Chest: Good air entry bilaterally. No crepitations. No rhonchi. There is an old sternotomy scar on the anterior chest wall. Cardiovascular: Irregularly irregular, but rate controlled. No murmurs. Abdomen is soft, distended, but nontender. There are old laparoscopic scars on the anterior abdominal wall. Bowel sounds are present. Extremities: No pedal edema. Central Nervous System: Patient is awake, alert, oriented. LABORATORY DATA: None for today. MICROBIOLOGY DATA: Stool was positive for blood yesterday. The blood culture showing E coli which is ESBL positive. RADIOLOGICAL DATA: A CT scan of the abdomen and pelvis did show a small residual fluid collection in the gallbladder fossa, which they thought was labor representative of a small postsurgical seroma. However, a small abscess could not be entirely excluded. ASSESSMENT: 1. Sepsis with extended-spectrum beta-lactamase Escherichia coli bacteremia, 2/2 blood cultures positive. The patient was on Zosyn. This has been switched to ertapenem. He is currently on contact precautions, and ID has been consulted. 2. Recent laparoscopic cholecystectomy. Current CT scan suggest a seroma in the gallbladder fossa. Questionable if that is infected. However, per the report it looks too small that I think if it is an infected seroma, antibiotics will be sufficient. The patient is being also seen by Surgery. 3. Acute kidney injury. We will continue with gentle hydration and avoid any nephrotoxin. 4. Atrial fibrillation, currently rate controlled. Patient is on home medications, including diltiazem and metoprolol. 5. Diarrhea. We will do a Clostridium difficile to rule that out and also do a culture to rule out any other infectious cause. In general, I think Mr. Kathleen is doing a lot better. Blood cultures have come back ESBL, 2/2, E coli. Antibiotic has been changed. ID has been consulted. The patient is pending transfer to the surgical floor. cc: Mario Brown MD MTDD
--- NOTE | 2019-03-15 14:57 | INFECTIOUS DISEASE CONSULT REP ---
DATE: 03/15/2019 CONCLUSION: The patient has an extended spectrum beta lactamase producing E coli bacteremia. I am worried that the patient may have developed aortic valve endocarditis due to a transient bacteremia. The patient may have had and exceeded his pig aortic valve which was replaced. Also, concern that there could possibly be some infection in the remaining hematoma of the patient's abdomen. RECOMMENDATIONS: I agree with putting the patient on ertapenem. I plan to treat the patient for 6 weeks in case the patient's pig valve became infected while the patient was bacteremic. I have ordered a transthoracic echocardiogram and if that is negative, I am going to go ahead and order a transesophageal echocardiogram and, as mentioned above, I plan to treat the patient for 6 weeks with IV ertapenem. DISCUSSION: The patient in January had laparoscopic colectomy and two days later he had a procedure to remove the hematoma. The patient did well until approximately four days ago when he became very weak and started vomiting. He also had fever. The patient's blood cultures are growing an extended spectrum beta lactamase producing E coli. The patient's urine culture is negative. CT scan of the abdomen shows a small amount of fluid in the gallbladder fossa. A chest x-ray shows no acute disease. The patient's creatinine is 1.6. GFR is 42. Liver function studies are normal. Urinalysis showed no white cells or bacteria. Urine culture is negative. PAST MEDICAL HISTORY/REVIEW OF SYSTEMS: Eyes and Ears: Patient has decreased hearing, but his vision is good. Neck: No stiffness. Cardiac: No chest pain or palpitations. Gastrointestinal: See Present Illness. Currently, the patient is not complaining of any abdominal pain and his weakness and vomiting and fever are resolving well. The patient did have vomiting, but that is getting better now. Genitourinary: No dysuria or flank pain. Bones, Joints, Muscles: No swollen joints or muscle aches. Neurologic: No seizures. No recent marked loss of motor or sensory function other than the fact that the patient developed diffuse weakness in the last four days while he was febrile and was discovered to have a bacteremia. PREVIOUS HOSPITALIZATIONS AND OPERATIONS: Patient has had a cholecystectomy, aortic valve replacement with a pig valve, cardiac catheterization, stents placed to the kidneys and coronary arteries, and surgery for a fractured pelvis. MEDICAL DISEASES: Positive for atrial fibrillation, coronary artery disease, hyperlipidemia, diabetes, and hypertension, hypothyroidism. INFECTIOUS DISEASE HISTORY: Negative for pneumonia and UTI. FAMILY HISTORY: Positive for diabetes, stroke, hyperlipidemia and a thyroid problem which required surgery on the thyroid gland. SOCIAL HISTORY: The patient is . He lives in [place]. He does not smoke cigarettes or abuse drugs. He occasionally drinks a small amount of alcohol. ALLERGIES: The patient's only allergy is niacin. HOME MEDICATIONS: Include: Eliquis, diltiazem, Cozaar and metformin. PHYSICAL EXAMINATION: Vital Signs: Temperature it is 97.6, pulse 67, respirations 25, blood pressure 168/79. The patient is 5 feet 8 inches tall, weighs 187 pounds. General: This is an ill-appearing obese elderly male. He is in no acute distress. Head, Eyes, Ears, Nose and Throat: He can hear my spoken words and see near objects. He does not have any white patches in his mouth. Neck: No meningismus. Lungs: Clear to auscultation. Cardiovascular: At times the heart rate was regular and at other times it was irregular. Abdomen: Soft and nontender. All incisions are healed. Neurologic: The patient is alert. He can move his extremities. There is no tremor. His sensation is intact to touch. His memory as regarding his medical history is slightly reduced. Integument: No rash is noted. Thank you for the consult. cc: Eulogio Snyder MD MTDBryanna
--- NOTE | 2019-03-15 15:03 | GASTROENTEROLOGY PROGRESS NOTE ---
DATE: 03/15/2019 SUBJECTIVE: Patient is feeling better today. Microbiology showed back Escherichia coli bacteremia. Patient has been seen by Dr. Snyder. Patient has tolerated a liquid diet and has had orders for advancement of his diet for lunch time. OBJECTIVE: Vital Signs: Temperature 97.9 degrees, pulse 67, respirations 23, blood pressure 147/77. General: Patient is awake, alert, no acute distress. Abdomen: Soft. Positive bowel sounds. LABORATORY: Hematology. Hemoglobin 11.1, hematocrit 34.9. Chemistry. Sodium 137, potassium 3.9, chloride 106, CO2 19, BUN 28, creatinine 1.6, glucose 117. ASSESSMENT AND PLAN: 1. Escherichia coli bacteremia on antibiotics following with Dr. Snyder. 2. Atrial fibrillation on anticoagulation. There has been no evidence of active bleeding although he had Hemoccult-positive stool. Will continue to monitor hemoglobin and hematocrit. 3. Nausea, vomiting has improved. Continue PPI. Will continue to follow and further plans to be made according to his progress. I have discussed this case with Dr. Fuentes. Dictated by MARCELINO Chadwick for Rahat Fuentes MD cc: MARCELINO Echols MD
--- NOTE | 2019-03-15 16:39 | ECHO REPORT ---
ORDER DATE: 03/15/2019 INDICATION: Evaluation for endocarditis, history of bioprosthetic aortic valve. FINDINGS: 1. The right atrium is normal in size at 3.5 cm. 2. Moderate to possibly severe tricuspid regurgitation. The RV systolic pressure is 58, suggesting pulmonary hypertension. 3. Normal RV size and systolic function. 4. Mild pulmonic insufficiency. 5. Mild left atrial enlargement with a dimension of 4.3 cm and a volume index of 33. 6. There is heavy mitral annular calcification with mild mitral regurgitation. The mitral valve area by pressure half-time is 2.5 cm2 with a mean gradient of 5.2 and a peak gradient of 13.2. This would suggest a moderate mitral stenosis. 7. Normal LV size with an end-diastolic dimension of 4.7. Normal wall thicknesses with a posterior and interventricular septal wall thickness of 1.1 cm each. Normal LV systolic function with an estimated EF of 60%. 8. There is a bioprosthetic in the aortic position. The peak gradient across the valve is 19 with a mean of 10. 9. The aorta appears normal in visualized segments. 10. I do not see any obvious pericardial effusion. 11. Compared to the echo in January 2019, there does not appear to be a significant difference. There was no clear evidence of valvular vegetation on this study, but if clinical suspicion is high, I would recommend transesophageal echo. cc: MD Eulogio Hough MD
[2019-03-16] MEDS: LOPRESSOR PO SCH ×4 (01:31→17:37)
[2019-03-16 06:27] LABS: BASO# 0.02 X1000 (0.0-0.2); BASO% 0.3 % (0.0-0.8); EOS# 0.27 X1000 (0.0-0.7); EOS% 4.4 % (0.0-10.0); HEMATOCRIT 35.4 % (42.0-52.0); HEMOGLOBIN 11.5 g/dL (14.0-18.0); LYMPH# 1.29 X1000 (1.2-3.4); MCHC 32.5 g/dL (33-37); MCV 83.1 FL (81-99); MONO# 0.81 X1000 (0.11-0.59); MONO% 13.2 % (1.7-9.3); MPV 12.7 FL (7.4-10.4); NEUT# 3.76 X1000 (1.4-6.5); NEUT% 61.1 % (42.2-75.2); PLT 116 X1000 (130-400); RBC 4.26 XMIL (4.7-6.1); RDW 14.9 % (11.5-14.5); WBC 6.15 X1000 (4.8-10.8)
[2019-03-16 07:22] LABS: AGAP 10; ALB/GLOB RATIO 0.9; ALBUMIN 2.7 g/dL (3.5-5.0); ALKALINE PHOSPHATASE 79 U/L (32-122); BUN 13 mg/dL (8-22); CALCIUM 8.6 mg/dL (8.8-10.2); CHLORIDE 108 mmol/L (98-107); COSMO 284; ESTIMATED GFR > 60; GLUCOSE 145 mg/dL (70-104); GOT 8 U/L (10-34); GPT 9 U/L (10-44); POTASSIUM 2.9 mmol/L (3.5-5.1); SODIUM 141 mmol/L (136-145); TCO2 23 mmol/L (25-35); TOTAL BILIRUBIN 0.34 mg/dL (0.20-1.00); TOTAL PROTEIN 5.7 g/dL (6.3-8.3)
[2019-03-16] MEDS ORDERED: KLOR-CON PO ONE (07:46)
[2019-03-16] MEDS: INVANZ 1 GM/NS 1 GM/50 ML IVPB IV SCH (08:16)
[2019-03-16] MEDS: ELIQUIS PO SCH ×2 (08:16→20:58)
[2019-03-16] MEDS: PROTONIX PO SCH (08:17)
[2019-03-16] MEDS: CARDIZEM CD PO SCH (08:17)
[2019-03-16] MEDS: NS 1,000 ML IV SCH (10:09)
--- NOTE | 2019-03-16 10:26 | INFECTIOUS DISEASE PROGRESS NO ---
DATE: 03/16/2019 PRESENT ILLNESS: The patient has an E coli bacteremia. I am concerned that he may have developed an aortic pig valve endocarditis with that organism. MEDICATIONS: The patient is on ertapenem. PHYSICAL EXAMINATION: Vital Signs: Temperature is 98.2 degrees, pulse 68, respirations 18, blood pressure 144/71. General: This is an ill-appearing elderly male. He is in no acute distress. Head/eyes/ears/nose/throat: He can hear my spoken words and see near objects. He does not have any white patches in his mouth. Neck: No neck pain with movement of his neck. Lungs: Clear to auscultation. Cardiovascular: Heart rate at times was regular and at other times it was irregular. Abdomen: Soft and only minimally tender. The patient's incisions are not draining and they are not erythematous. Neurologic: The patient is alert. He can move his extremities. There is no tremor. LAB AND X-RAY STUDIES: The patient's echocardiogram showed no vegetation. Stool for Clostridium difficile toxin is negative. Stool culture is pending. Stool for white blood cells was negative. ASSESSMENT AND PLAN: The patient has an extended spectrum beta lactamase producing Escherichia coli bacteremia. There may be an associated aortic valve endocarditis. My plan is to continue ertapenem for a total of 6 weeks with day #1 being the first day that repeat blood cultures are negative. I have ordered repeat blood cultures for tomorrow. Also since the transthoracic echocardiogram did not show a vegetation, I have ordered a transesophageal echocardiogram to look for endocarditis, and especially on the aortic pig valve. COMORBIDITIES: The patient's comorbidities: He is elderly. He has diabetes and he has a pig valve in place. cc: Eulogio Snyder MD
[2019-03-16] MEDS: COZAAR PO SCH (11:17)
--- NOTE | 2019-03-16 11:24 | PROGRESS NOTE ---
DATE: 03/16/2019 SUBJECTIVE: This morning Mr. Kathleen refers to be doing a lot better. Denies any new complaints. OBJECTIVE: Vital signs: Blood pressure is 187/105, pulse of 78, respirations 17, and temperature is 96.9 degrees. The patient is saturating 96% on 2 L of nasal cannula. General: Mr. Kathleen is in bed. He is not in any cardiopulmonary distress. HEENT: Mucosa is pink and moist. Anicteric. Acyanotic. Neck: Supple. Chest: Good air entry bilaterally. Did not hear any crepitations or rhonchi. No accessory muscle use. Cardiovascular: Regular rate and rhythm. No murmurs, no rubs, no gallops. There is an old sternotomy scar on the anterior abdominal wall. Gastroenterology: Abdomen is soft and nontender. There is old laparoscopic scars on the anterior abdominal wall. Bowel sounds are present. Extremities: No pedal edema. 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 There is no focal neurological deficit. LABORATORY DATA: CBC is unremarkable. Chemistry is also reviewed. Potassium is 2.9. Rest of chemistry is normal. The patient's I's and O's are documented. He has 100% of his meals, breakfast this morning. He has also had 3 bowel movements documented yesterday. His urine output was 3325. He still has positive balance of over 3000. No new imaging studies. Microbiology Data showed this too C. Diff was negative. He has not had any more diarrhea. ASSESSMENT: 1. Sepsis with ESBL E. Coli bacteremia. The patient is currently on ertapenem. Today, is day 1. Blood cultures will be repeated after 48 hours of adequate therapy. 2. History of bioprosthetic aortic valve replacement. There is the concern that the valve could have been seeded with the ESBL E. Coli so cardiology has been consulted for a MELCHOR since the TTE was negative. 3. Recent laparoscopic cholecystectomy. Surgery is on board. There is a CT report of seroma in the gallbladder fossa, questionable if this is infected. 4. Acute kidney injury resolved. 5. Hypokalemia. We will continue to replace. 6. Diarrhea with C. Diff negative. We think this is medication side effects. We would address this symptomatically. In general, I think Mr. Kathleen is clinically stable. He still awaiting a bed on the floor. We are going to continue with the current IV antibiotics, and will be pending further recommendations from Cardiology. Patient is being seen by ID, Cardiology, Surgery, and also GI. We appreciate all of their input. cc: Mario Brown MD [facility]
--- NOTE | 2019-03-16 14:27 | PROGRESS NOTE ---
DATE: 03/16/2019 SUBJECTIVE: Cardiology requested to perform transesophageal echocardiography in this patient with recent E. coli bacteremia and previous aortic valve replacement with bioprosthesis. The rationale for pursuit of transesophageal echocardiography along with potential risks/hazards was discussed with the patient and he wished to proceed. Will make arrangements for MELCHOR to be performed tomorrow morning. cc: Wallace Luz MD
--- NOTE | 2019-03-16 18:51 | GASTROENTEROLOGY PROGRESS NOTE ---
DATE: 03/16/2019 SUBJECTIVE: The patient is feeling better today. His GI symptoms have improved. He is currently tolerating a lunch at the time of my evaluation. He was eating some take-out that his family had brought him with no difficulty. No reported vomiting or nausea today. The patient is being followed by infectious disease for ESBL E coli bacteremia. He is on antibiotics. The patient has also been seen by cardiology due to his history of aortic valve replacement. Due to his bacteremia, it was felt he needed a MELCHOR. That procedure is being set up by Cardiology. Recent laparoscopic cholecystectomy. Surgical associates are following. The diarrhea has improved. Stool studies were negative. PLAN: Continue symptomatic treatment and supportive care. Continue PPI. We will continue to follow and further plans to be made according to his progress. There are plans for a transesophageal echocardiogram, possibly tomorrow to per Cardiology. I have discussed this case with Dr. Fuentes. Dictated by MARCELINO Chadwick for Rahat Fuentes MD cc: MARCELINO Echols MD [facility]
[2019-03-17] MEDS: LOPRESSOR PO SCH ×3 (00:32→17:34)
[2019-03-17] MEDS: NS 1,000 ML IV SCH ×4 (00:32→22:08)
[2019-03-17 07:02] LABS: BASO# 0.03 X1000 (0.0-0.2); BASO% 0.5 % (0.0-0.8); EOS# 0.28 X1000 (0.0-0.7); EOS% 4.4 % (0.0-10.0); HEMATOCRIT 38.2 % (42.0-52.0); HEMOGLOBIN 12.4 g/dL (14.0-18.0); IMM GRAN# 0.02 X1000 (0.0-0.04); IMM GRAN% 0.3 % (0.0-0.5); LYMPH# 1.68 X1000 (1.2-3.4); LYMPH% 26.3 % (20.5-51.1); MCH 26.8 PG (27-31); MCHC 32.5 g/dL (33-37); MCV 82.5 FL (81-99); MONO# 0.88 X1000 (0.11-0.59); MONO% 13.8 % (1.7-9.3); MPV 12.1 FL (7.4-10.4); NEUT# 3.51 X1000 (1.4-6.5); NEUT% 54.7 % (42.2-75.2); PLT 136 X1000 (130-400); RBC 4.63 XMIL (4.7-6.1); RDW 14.9 % (11.5-14.5)
[2019-03-17 07:25] LABS: AGAP 12; ALBUMIN 3.1 g/dL (3.5-5.0); ALKALINE PHOSPHATASE 83 U/L (32-122); BUN 11 mg/dL (8-22); CALCIUM 9.1 mg/dL (8.8-10.2); CHLORIDE 106 mmol/L (98-107); COSMO 286; ESTIMATED GFR > 60; GLUCOSE 132 mg/dL (70-104); GOT 10 U/L (10-34); GPT 9 U/L (10-44); POTASSIUM 3.2 mmol/L (3.5-5.1); SODIUM 143 mmol/L (136-145); TCO2 25 mmol/L (25-35); TOTAL BILIRUBIN 0.39 mg/dL (0.20-1.00); TOTAL PROTEIN 6.3 g/dL (6.3-8.3)
[2019-03-17] MEDS ORDERED: SODIUM CHLORIDE 0.9% 10 ML ONE (07:43)
[2019-03-17] MEDS ORDERED: XYLOCAINE 2% VISCOUS ONE (07:43)
[2019-03-17] MEDS ORDERED: XYLOCAINE 4% TOPICAL SOLUTION ONE (07:43)
[2019-03-17] MEDS: INVANZ 1 GM/NS 1 GM/50 ML IVPB IV SCH (07:51)
[2019-03-17] MEDS ORDERED: VERSED ONE (10:57)
[2019-03-17] MEDS ORDERED: DEMEROL ONE (10:57)
[2019-03-17] MEDS ORDERED: APRESOLINE ONE (11:43)
--- NOTE | 2019-03-17 12:16 | PROGRESS NOTE ---
DATE: 03/17/2019 SUBJECTIVE: This morning, Mr. Kathleen refers to be doing fairly okay. Denies any new complaints. Was awaiting for a MELCHOR to be done. OBJECTIVE: Vital Signs: Blood pressure is 176/82, pulse of 73, respirations are 19, temperature is 97.9 degrees. General Examination: Mr. Kathleen is an 83-year-old, gentleman. He is in bed. No distress. HEENT: Mucosa is pink and moist. Anicteric. Acyanotic. Neck: Supple. Chest: Good air entry bilaterally. No crepitations. No rhonchi. No accessory muscle use. Cardiovascular: Regular rate and rhythm. No murmurs, no rubs, no gallops. There is an old sternotomy scar on the anterior chest wall. GI: Abdomen is soft, nontender. There are some old laparoscopy scars on the anterior abdominal wall. Bowel sounds are present. Extremities: No pedal edema. 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 There is no focal neurological deficit. Laboratory Data: WBC is 6.40, hemoglobin is 12.4, platelet count of 136,000. Chemistry is also reviewed and completely normal except for potassium which is 3.2. A repeat blood culture this morning is still pending. ASSESSMENT: 1. Sepsis with extended-spectrum B-lactamase Escherichia coli bacteremia. The patient is on ertapenem. Today is day 2. Blood cultures have been repeated this morning and we will follow up accordingly. 2. History of bioprosthetic aortic valve replacement. There is the concern that the prostatic valve could be seeded and cause endocarditis by the extended-spectrum B-lactamase Escherichia coli. A transesophageal echocardiogram is pending for today. 3. Recent laparoscopic cholecystectomy. CT scan reports seroma in the gallbladder fossa, questionable if this is infected. The patient is currently on intravenous antibiotics. Surgery is also on board. 4. Acute kidney injury, resolved. 5. Hypokalemia. We will continue to replace. 6. Diarrhea with Clostridium difficile negative. Presumably medication side effects. Improving. PLAN: In general, I think Mr. Kathleen is doing a lot better. He is pending a MELCHOR today. A blood culture has also been repeated today. Disposition is going to depend on the rest of the hospital course. cc: Mario Brown MD
[2019-03-17] MEDS: ELIQUIS PO SCH ×2 (14:35→22:08)
--- NOTE | 2019-03-17 15:49 | GASTROENTEROLOGY PROGRESS NOTE ---
DATE: 03/17/2019 SUBJECTIVE: Patient was moved from the ICU to the 3rd floor. He is waiting on his transesophageal echocardiogram to be done. He currently denies GI complaints. He is tolerating his diet. OBJECTIVE: Vital Signs: Temperature 97.7 degrees, pulse 73, respirations 19, blood pressure 161/68. General: The patient is awake and alert, in no acute distress. Laboratory: Hematology: WBCs 6.40, hemoglobin 12.4, hematocrit 38.2, MCV 82.5, platelets 136,000. Chemistry: Sodium 143, potassium 3.2, chloride 106, CO2 25, BUN 11, creatinine 1.0, glucose 132. ASSESSMENT AND PLAN: 1. Sepsis related to extended-spectrum B-lactamase Escherichia coli bacteremia. Patient on antibiotics. 2. History of aortic valve replacement. There are plans for a transesophageal echocardiogram today. 3. Recent cholecystectomy. Patient is on antibiotics. 4. Nausea, vomiting, and diarrhea have improved. Continue symptomatic treatment. Patient's gastrointestinal symptoms have currently resolved. Gastroenterology will currently sign off. Please re-consult us if needed. I have discussed this case with Dr. Fuentes. Dictated by MARCELINO Chadwick for Rahat Fuentes MD cc: MARCELINO Echols MD
[2019-03-17] MEDS: CARDIZEM CD PO SCH (17:33)
[2019-03-17] MEDS: PROTONIX PO SCH (17:34)
[2019-03-17] MEDS: COZAAR PO SCH (17:34)
--- NOTE | 2019-03-17 18:13 | INFECTIOUS DISEASE PROGRESS NO ---
DATE: 03/17/2019 PRESENT ILLNESS: The patient has an E. coli bacteremia. I was very concerned that the patient may have developed an aortic pig valve endocarditis. However, the transesophageal echocardiogram done this afternoon showed no vegetations. MEDICATIONS: The patient is on ertapenem. PHYSICAL EXAMINATION: Vital Signs: Temperature is 97.7, pulse 73, respirations 19, blood pressure 161/68. General: This is an ill-appearing, elderly male. He is in no acute distress. HEENT: He can hear my spoken words and see near objects. He does not have any white coating in his tongue. Neck: He does not have any pain in his neck when he moves his head or neck. Lungs: Clear to auscultation. Cardiovascular: Heart rate is regular most of the time. Occasionally I thought it was irregular. Abdomen: Soft and not tender. The patient's incisions are healing well. Neurologic: The patient is alert. He can move his extremities. There is no tremor. LAB AND X-RAY: Echocardiogram: The transesophageal echocardiogram showed no vegetations. The patient's CBC shows a white count of 6400, hemoglobin 12.4, and platelet count 136,000. Creatinine is 1.0. GFR is greater than 60. ASSESSMENT AND PLAN: The patient has an extended spectrum beta lactamase producing E coli bacteremia. The exact origin is not certain to me. The patient did not fortunately develop aortic valve endocarditis. Blood cultures were drawn today. The first day of antibiotic treatment will be the first day that the repeat blood cultures are sterile. For now, I am going to continue with ertapenem. We also picked up a document from microbiology lab that shows that the patient's organism is susceptible to ertapenem. I put in a consult for Environmental Director to see about arranging for home IV antibiotics. If the patient does not have coverage for that, then he will be able to come to one of the outpatient infusion areas either at [facility] or [facility] [place] and then he will get his daily ertapenem through them. COMORBIDITIES: He is elderly. He also is a diabetic and he has a pig valve in place. cc: Eulogio Snyder MD
--- NOTE | 2019-03-17 20:27 | ECHO REPORT ---
ORDER DATE: 03/17/2019 REQUESTING PHYSICIAN: Dr. Snyder from Infectious Disease. CLINICAL INDICATIONS: Patient with septicemia due to E coli, suspected endocarditis. The patient was consented for a MELCHOR by Dr. Luz on 03/16/2019. Please refer to consent dictated by him. PROCEDURE: Transesophageal echocardiogram. DESCRIPTION: The patient was brought to the cardiac orthodontic laboratory technician. He received a total of 3 mg of Versed and 50 mg of Demerol given in divided doses until adequate sedation was accomplished. The esophagus was intubated without difficulty. Multiple views of the cardiac structures were obtained. SUMMARY OF MAIN FINDINGS: The left atrium and its appendage are well visualized. The left atrial appendage is a large structure and appears to be lobulated with normal velocities greater than 50 cm per second. The interatrial septum is intact. There is no evidence of patent foramen ovale. Agitated saline was injected. The right atrial appendage was well visualized. The superior vena cava and inferior vena cava unremarkable. The tricuspid valve was normal. Color flow mapping unremarkable. The pulmonic valve was normal. Color flow mapping unremarkable. The right ventricle is unremarkable. The left ventricle shows normal function. Mild degree of concentric LVH. The aortic valve is a bioprosthetic valve. It shows no thickening at the level of the valve or the wall of the ascending aorta. The intervalvular fibrosa is normal. Color flow mapping shows no regurgitation. The gradient across this valve is normal. The mitral valve is thickened and it shows a mild to moderate degree of regurgitation with a mean gradient of 5 mmHg, suggesting that there is some degree of mitral valve stenosis. The flow at the level of the pulmonary veins were found to be normal. The descending thoracic aorta shows diffuse thickening/calcification. No debris or mobile elements noted. No pericardial effusion. The patient tolerated the procedure well. SUMMARY: The study is negative for endocardial vegetation involving either of the cardiac valves. cc: MD Wallace Nevarez MD
[2019-03-18] MEDS: LOPRESSOR PO SCH ×4 (03:01→17:45)
[2019-03-18] MEDS: PROTONIX PO SCH ×2 (07:30→07:58)
[2019-03-18] MEDS: ELIQUIS PO SCH ×3 (07:30→21:02)
[2019-03-18] MEDS: CARDIZEM CD PO SCH ×2 (07:30→07:57)
[2019-03-18] MEDS: COZAAR PO SCH ×2 (07:30→07:58)
[2019-03-18] MEDS: INVANZ 1 GM/NS 1 GM/50 ML IVPB IV SCH (07:58)
--- NOTE | 2019-03-18 12:33 | PROGRESS NOTE ---
DATE: 03/18/2019 SUBJECTIVE: Today, Mr. Kathleen refers to be doing okay. was at the bedside at the time of the encounter. No new complaints. OBJECTIVE: Vital Signs: Blood pressure is 165/90, pulse 84, respirations 17, temperature 98.1 degrees. The patient is saturating 99% on room air. General: Mr. Kathleen is an 83-year-old gentleman. He is in bed, no distress. HEENT: Mucosa is pink and moist. Anicteric. Acyanotic. Neck: Supple. Chest: Good air entry bilateral. There were no crepitations, no rhonchi. Cardiovascular: Regular rate and rhythm. No murmurs, no rubs, no gallops. There is an old sternotomy scar on the anterior chest wall. Abdomen: Soft. There are some old laparoscopic scars on the anterior abdominal wall. Bowel sounds were present. Extremities: No pedal edema. Distal pulses were present. Neurologic: The patient is awake, alert, and oriented. There is no focal neurological deficit. LABORATORY DATA: None for today. Repeat blood culture is still pending. ASSESSMENT: 1. Sepsis with extended-spectrum beta lactamase Escherichia coli bacteremia. The patient is on ertapenem, today is day 3. Repeat blood cultures are still pending. 2. History of bioprosthetic aortic valve replacement. A MELCHOR was negative for any endocarditis. 3. Recent laparoscopic cholecystectomy with a CT scan report showing some seroma in the gallbladder fossa. 4. Acute kidney injury on presentation, resolved. 5. Diarrhea with Clostridium difficile negative, most likely due to antibiotic side effects. This is significantly improved after Zosyn was changed. 6. Electrolyte abnormality, including hypokalemia. We will continue to replace these. PLAN: In general, Mr. Kathleen is doing a whole lot better. We are still pending the repeat blood cultures to have a negative culture before we put in a PICC line. The patient is being seen by Infectious Disease, Cardiology, and Gastroenterology as well as surgery. We appreciate the input. DISPOSITION: Once we have a negative blood culture, we will get in a PICC line and then arrange home antibiotics which will be determined by Dr. Snyder. The patient will eventually go home with home health. cc: Mario Brown MD
[2019-03-18] MEDS: NS 1,000 ML IV SCH (13:55)
--- NOTE | 2019-03-18 14:59 | INFECTIOUS DISEASE PROGRESS NO ---
DATE: 03/18/2019 PRESENT ILLNESS: Mr. Kathleen has an extended spectrum beta lactamase producing Escherichia coli bacteremia. He has a porcine aortic valve, however transesophageal echocardiogram showed no vegetation. MEDICATIONS: He is receiving ertapenem 1 g IV every 24 hours which he will need for a total of 6 weeks. Day 1 will be the first day of sterile blood cultures. PHYSICAL EXAMINATION: Vital Signs: Temperature is 98.1 degrees, pulse rate 84, respiratory rate 17, blood pressure 165/90, O2 saturation is 99% on room air. General: This is an elderly, acutely ill-appearing gentleman. He is lying in bed, currently in no acute distress. HEENT: Atraumatic, normocephalic. Oral mucous membranes are pink and moist. Conjunctivae are pink. Neck: Supple. Trachea is midline. Cardiovascular: Heart rate is regular. Respiratory: Lung sounds are clear to auscultation bilaterally. Diminished in the bases. Abdomen: Soft, round and nontender. Bowel sounds are active. Neurologic: He is awake, alert, oriented, able to move around in the bed independently without a tremor. LABORATORY AND X-RAY: None available today. ASSESSMENT AND PLAN: Mr. Kathleen is being treated for an extended spectrum beta lactamase producing Escherichia coli bacteremia. He has a porcine aortic valve, so he will need 6 weeks of treatment. Day 1 of treatment will be the first day of sterile blood cultures which we have yet to obtain. Those blood cultures were drawn yesterday and hopefully they will be sterile over the weekend, after which time we will insert a PICC line and send him home. manager clinical services has already been consulted for home IV antibiotics. We will have the patient come in the office at 3 weeks and then again at 6 weeks. These plans have been discussed with and recommended by Dr. Snyder. COMORBIDITIES: For Mr. Kathleen include that he is elderly with coronary artery disease, diabetes mellitus, and a porcine aortic valve. Dictated by MARCELINO Varma for Eulogio Snyder MD cc: Eulgoio Snyder MD [facility]ENTERBryanna
[2019-03-19] MEDS: LOPRESSOR PO SCH ×3 (01:11→17:41)
[2019-03-19] MEDS: NS 1,000 ML IV SCH ×2 (01:12→16:28)
[2019-03-19] MEDS: COZAAR PO SCH (08:57)
[2019-03-19] MEDS: INVANZ 1 GM/NS 1 GM/50 ML IVPB IV SCH (08:57)
[2019-03-19] MEDS: ELIQUIS PO SCH ×2 (08:57→21:35)
[2019-03-19] MEDS: CARDIZEM CD PO SCH (08:58)
[2019-03-19] MEDS: PROTONIX PO SCH (09:32)
[2019-03-19 10:22] LABS: INR 1.11; PROTIME 15.2 Seconds (11.0-16.0)
--- NOTE | 2019-03-19 12:23 | PROGRESS NOTE ---
DATE: 03/19/2019 SUBJECTIVE: This morning, Mr. Kathleen was sitting up in the chair. He refers to be doing a whole lot better. Denies any complaints. OBJECTIVE: Current Vital Signs: Blood pressure is 160/66, pulse of 61, respirations 16, temperature is 97.9 degrees. General: Mr. Kathleen is an 83-year-old, gentleman. He was in bed, in no distress. HEENT: Mucosa is pink and moist. Anicteric. Acyanotic. Neck: Supple. Chest: Good air entry bilaterally. There were no crepitations, no rhonchi. Cardiovascular: Regular rate and rhythm. No murmurs, no rubs, no gallops. There is an old sternotomy scar on the anterior chest wall. GI: Abdomen is soft, nontender. Bowel sounds present. Extremities: No pedal edema. Distal pulses are present. 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 There is no focal neurological deficit. LABORATORY DATA: INR is 1.11. No other lab work. The repeat blood cultures from the of this month have been 48 hours negative. ASSESSMENT: 1. Sepsis with extended-spectrum beta lactamase Escherichia coli bacteremia. Patient is currently on ertapenem; today is day 4. Repeat blood cultures have been negative. We plan to put a peripherally inserted central catheter line on Mr. Kathleen, and plan for his discharge tomorrow. 2. History of bioprosthetic aortic valve replacement. A transesophageal echocardiogram was negative for any endocarditis. 3. Recent laparoscopic cholecystectomy, with CT scan report showing seroma in the gallbladder fossa. Surgery has evaluated the patient. 4. Acute kidney injury on presentation, resolved. 5. Diarrhea, with negative Clostridium difficile toxin. We think this is antibiotic side effect. This has improved. 6. Generalized weakness and deconditioning. Patient will be evaluated by Physical Therapy. So, in general, I feel Mr. Kathleen is doing a whole lot better. He came in septic and blood culture revealed extended-spectrum beta lactamase Escherichia coli, which we presume has come from the gastrointestinal tract. Subsequent blood cultures have now come back negative. Patient is clinically stable and doing better. We are going to get a peripherally inserted central catheter line and potentially get him discharged tomorrow, if it is okay with Infectious Disease. cc: Mario Brown MD
[2019-03-19] MEDS: TYLENOL PO PRN (21:46)
[2019-03-20] MEDS: LOPRESSOR PO SCH ×4 (01:54→17:18)
[2019-03-20] MEDS: NS 1,000 ML IV SCH ×2 (05:24→17:18)
[2019-03-20] MEDS: INVANZ 1 GM/NS 1 GM/50 ML IVPB IV SCH (08:17)
[2019-03-20] MEDS: CARDIZEM CD PO SCH (08:20)
[2019-03-20] MEDS: ELIQUIS PO SCH ×2 (08:22→20:55)
[2019-03-20] MEDS: COZAAR PO SCH (08:22)
[2019-03-20] MEDS: PROTONIX PO SCH (08:22)
[2019-03-20] MEDS ORDERED: COZAAR PO ONE (09:35)
[2019-03-20] MEDS ORDERED: COREG PO SCH (09:45)
--- NOTE | 2019-03-20 09:54 | PROGRESS NOTE ---
DATE: 03/20/2019 SUBJECTIVE: This morning, Mr. Kathleen refers to be doing okay. Denies any complaints. OBJECTIVE: Vital signs: Blood pressure is 182/76, pulse of 65, respirations 16, temperature is 98.1 degrees. General: Mr. Kathleen is an 83-year-old gentleman. He was in bed. He is not in any distress. HEENT: Mucosa is pink and moist. Anicteric. Acyanotic. Neck: Supple. Chest: Clear to auscultation. No crepitations. No rhonchi. Cardiovascular: Regular rate and rhythm. No murmurs, no rubs, no gallops. There is an old sternotomy scar on the anterior chest wall. Abdomen: Soft, nontender. Bowel sounds present. Recent laparoscopic scars on the anterior abdominal wall noted. Neurologic: Patient is awake, alert, and follows commands. LABORATORY DATA: No lab work for this morning. The patient's current medications have all been reviewed and there are no changes. ASSESSMENT: 1. Sepsis secondary to extended-spectrum beta lactamase Escherichia coli bacteremia, resolved. Patient is currently on ertapenem. Today is day 5. Repeat blood cultures have been negative. 2. History of bioprosthetic aortic valve replacement. A MELCHOR was negative for endocarditis. 3. Recent laparoscopic cholecystectomy noted. 4. Acute kidney injury on presentation, resolved. 5. Diarrhea with negative Clostridium difficile toxin, resolved. 6. Generalized weakness and deconditioning. 7. Uncontrolled hypertension. We are going to titrate blood pressure medications. PLAN: In general Mr. Kathleen seems to be doing a lot better. He has been afebrile and repeat blood cultures have come back negative. We are pending a PICC line and home antibiotic arrangements and hopefully discharge him tomorrow. cc: Mario Brown MD
[2019-03-20] MEDS: TYLENOL PO PRN (20:55)
[2019-03-21] MEDS: LOPRESSOR PO SCH ×2 (04:46→11:04)
[2019-03-21] MEDS ORDERED: NS 250 ML ONE (07:58)
[2019-03-21 08:04] LABS: INR 1.11; PROTIME 15.2 Seconds (11.0-16.0)
[2019-03-21] MEDS ORDERED: COZAAR PO SCH (09:00)
--- NOTE | 2019-03-21 10:43 | Diag Imaging Result Doc PS360 ---
EXAM: CHEST-PORTABLE HISTORY: picc line placement TECHNIQUE: Chest single view COMPARISON: 03/12/2019 FINDINGS: The lungs are well expanded. The heart is not enlarged. Sternal wires are present. The vessels are not distended. There is a left-sided PICC line. The tip overlies the mid superior vena cava. There are no infiltrates. No effusion identified. IMPRESSION: PICC line in good position. Electronically signed by Art Gaytan 03/21/2019 10:41 AM
[2019-03-21] MEDS: INVANZ 1 GM/NS 1 GM/50 ML IVPB IV SCH (11:03)
[2019-03-21] MEDS: ELIQUIS PO SCH (11:04)
[2019-03-21] MEDS: CARDIZEM CD PO SCH (11:04)
[2019-03-21] MEDS: PROTONIX PO SCH (11:05)
[2019-03-21] MEDS: NS 1,000 ML IV SCH (11:05)
[2019-03-21 15:07] VITALS: BP 172/75
--- NOTE | 2019-03-24 11:28 | DISCHARGE SUMMARY ---
ADMISSION DATE: 03/12/2019 DISCHARGE DATE: 03/21/2019 DISPOSITION: Home. FOLLOWUP: 1. Dr. Abiola Madera. 2. Dr. Snyder. 3. Dr. Hassan. 4. Dr. Fuentes. CONSULTATIONS DURING THIS ADMISSION: 1. Surgery was consulted. The patient was seen by Dr. Hassan, followed up by Dr. Corley. 2. ID was consulted. The patient was seen by Dr. Snyder. 3. GI was consulted. The patient was seen by Dr. Fuentes. INVASIVE PROCEDURES DONE DURING THIS ADMISSION: None. IMAGING STUDIES OF SIGNIFICANCE: 1. CT scan of the abdomen and pelvis did show a fluid collection in the gallbladder fossa, most likely postsurgical seroma. 2. An echocardiogram showed an ejection fraction of 60%. 3. A chest x-ray shows good position of PICC line. 4. A MELCHOR showed no evidence of endocarditis. ADMISSION DIAGNOSES: 1. Nausea and vomiting. 2. Status post cholecystectomy. 3. Atrial fibrillation. 4. Diabetes. DIAGNOSIS AT TIME OF DISCHARGE: 1. Sepsis on presentation secondary to extended spectrum beta-lactamase Escherichia coli bacteremia. 2. History of bioprosthetic aortic valve replacement. Transesophageal echocardiogram was negative for endocarditis. 3. Recent laparoscopic cholecystectomy. 4. Acute kidney injury. 5. Diarrhea with negative Clostridium difficile toxin, resolved. 6. Uncontrolled hypertension, improved. 7. Generalized weakness and deconditioning. DISCHARGE MEDICATIONS: 1. Losartan 100 mg p.o. daily. 2. Metformin 500 b.i.d. 3. Eliquis 2.5 b.i.d. 4. Vitamin D. 5. Cardizem 240 p.o. daily. PRESENTING COMPLAINT: Nausea, weakness, vomiting. HISTORY OF PRESENTING COMPLAINT: Mr. Kathleen is an 83-year-old male who recently had a cholecystectomy by Dr. Corley, had some complication during the hospital course, but was successfully discharged on 01/30/2019. The patient seems to have been doing fairly okay at home, but then started having some generalized weakness, nausea, vomiting. He came to the emergency department and was found to be septic, so was admitted to the ICU for further medical care. HOSPITAL COURSE: Mr. Kathleen was initially started on broad-spectrum IV antibiotics and fluid resuscitation in the ICU. Both Surgery and GI were consulted. The patient was seen by Dr. Corley and Dr. Fuentes. Mr. Kathleen continues to show remarkable improvement during the hospital course. He was transferred from the ICU to medical floor. Blood cultures came back positive for ESBL. We thought this was a translocation from the GI tract into the intravascular space. A MELCHOR was recommended by ID, which was successfully done, and it was negative for any endocarditis. Repeat blood cultures came back negative. The patient was started on ertapenem. Today, he refers to feel a whole lot better. He has been afebrile. He is eating. There are no new complaints. He is therefore deemed stable for discharge. Today, his vitals show blood pressure is 128/86, pulse of 67, respirations 18, temperature 97.7 degrees, the patient is saturating 95% on room air. At the time of the encounter, both his and daughter were at the bedside. All the discharge instructions have been discussed with all 3 of them, and they all voiced understanding. TIME SPENT: Time spent for discharge was 36 minutes. cc: MD Abiola Tom MD Dr. Harris
== END 2019-03-21 15:53 | disposition home health service (06) | DRG 871 ==
LOC: SUPCPDRO → ED 12:15 → 4N 18:27 → SUATTDRO 18:27 → 4N 03-13 10:21 → ICU 03-13 13:30 → 3N 03-16 17:28
PROVIDERS: ATTEND Internal Medicine
CPT/HCPCS: 36569; 71010; 71045; 74177; 80048; 80053; 81001; 82270; 83605; 83735; 85014; 85018; 85025; 85610; 85730; 87040; 87045; 87046; 87077; 87088; 87186; 87205; 87275; 87276; 87324; 87804; 89055; 93005; 93010; 93306; 93312; 94761; 94762; 96365; 97116; 97161; 97530; 99285; A9270; J0360; J1335; J1885; J2175; J2250; J2405; J2543; J3370; J3475; J3480; J7030; J7040; J7050; Q9967

== ENCOUNTER 2020-02-01 15:06 | Inpatient (IN) ==
--- NOTE | 2020-02-01 15:53 | PROVIDER DOCUMENTATION ---
HPI-Syncope/Dizziness - General Chief Complaint: Near Syncope Stated Complaint: near syncope Time Seen by Provider: 02/01/20 15:27 Source: patient, EMS Allergies/Adverse Reactions: Patient Allergies Allergy/AdvReac Type Severity Reaction Status Date / Time niacin Allergy Intermediate burning Verified 03/12/19 17:26 Home Medications: Home Medication List Medication Instructions Recorded Confirmed Last Taken Type Metformin HCl 500 mg PO BID #30 tab 08/07/18 09/28/19 01/21/19 Rx Apixaban [Eliquis] 1 tab PO BID 03/12/19 09/28/19 Unknown History Cholecalciferol (Vit D3) [Vitamin 10,000 unit PO DAILY 03/13/19 09/28/19 Unknown History D] Diltiazem C.d. [Cardizem Cd] 240 mg PO DAILY cap 03/20/19 09/28/19 Unknown Rx Losartan [Cozaar] 100 mg PO DAILY tab 03/20/19 09/28/19 Unknown Rx Metoprolol [Lopressor] 12.5 mg PO Q8H #120 tab 03/21/19 09/28/19 Unknown Rx Potassium Chloride 10 meq PO DAILY #14 tablet.er 09/28/19 Unknown Rx - History of Present Illness-Syncope/Dizzy Nature of Presenting Problem: Pt reports he was getting a sponge bath by his when he felt like he was going to pass out. Describes symptoms as "weak" but denies seeing spots or feeling like the room was closing on him. Denies full syncope. Denies exertion or tilting head back for period of time. States he normally gets help by his for showers but the last 3 days he felt weak and needed sponge bath for safety. Denies fever, cough, SOB, blurred vision, n/v/d. Prior Episodes: reports: no prior history Onset/Duration: reports: abrupt Timing: reports: gone now, resolved prior to arrival Position/Activity at time of episode: reports: sitting (head in neutral position) Symptoms prior to episode: denies: headache, lightheaded, visual disturbance, nausea/vomiting, chest pain, racing heart, abdominal pain, back pain, confusion, diaphoresis, injury, recent head trauma, rapid heart beat Context: reports: felt faint, almost passed out. denies: lost consciousness, collapsed, confused after event, breathing stopped Loss of Consciousness: no loss of consciousness Current Symptoms: reports: weakness, lightheaded. denies: fever, chills, sweaty, chest pain, breathing difficulty, short of breath, abdominal pain, nausea, vomiting, shoulder pain, arm pain, dizzy, headache, pale, weak pulse, headache, blurred vision Recently Seen Here or By Another Healthcare Provider: No Review of Systems - Adult - REVIEW OF SYSTEMS - ADULT Constitutional: denies: chills, fever Eyes: denies: blurred vision, double vision Cardiovascular: denies: chest pain Respiratory: denies: cough, hemoptysis, shortness of breath, wheezing Gastrointestinal: denies: abdominal pain, diarrhea, nausea, vomiting Neurological: reports: dizziness/vertigo, loss of balance. denies: numbness, paresthesia, syncope (near syncope) All Other Systems: Reviewed and Negative Past History - Adult - PAST MEDICAL HISTORY-ADULT Review of Records: reports: Old Records Reviewed, Nursing Assessment Review, Me dications Reviewed Cardiovascular: reports: A-Fib, HTN, heart valve problem, hyperlipidemia Respiratory: reports: asthma Gastrointestinal: reports: GERD - PRIOR SURGERIES/PROCEDURES Surgical/Procedure History: reports: CABG, other (cataract removal) - IMMUNIZATION STATUS Childhood Immunizations: See Nurse Assessment Flu Vaccine: See Nurse Assessment - FAMILY HISTORY Family History: reviewed, not pertinent - SOCIAL HISTORY Smoking: non-smoker Living Situation: family Physical Exam-General - PHYSICAL EXAM-ADULT Initial Vital Signs Reviewed: Yes - CONSTITUTIONAL General Appearance: appears well, no apparent distress, slow to respond - EYES Eyes: PERRL/EOMI, pink conjunctivae - HEAD, EARS, NOSE, MOUTH & THROAT HENMT: normocephalic/atraumatic, moist mucous membranes - NECK Neck: non-tender, full range of motion, supple. negative: lymphadenopathy - RESPIRATORY Respiratory: chest non-tender, lungs clear, normal breath sounds, other (well healed scar midline from prior CABG 01/2019) - CARDIOVASCULAR Cardiovascular: no edema, irregularly irregular - GASTROINTESTINAL (ABDOMEN) Abdominal Exam: normal bowel sounds, non tender, soft (protuberant abdomen). negative: distended, guarding, rigid, rebound, tenderness, hernia, mass - MUSCULOSKELETAL Back Exam: normal inspection, no CVA tenderness, no vertebral tenderness. negative: muscle spasm, vertebral tenderness Extremity: normal inspection, no pedal edema, no calf tenderness - SKIN Integumentary: normal color, normal turgor, warm/dry. negative: rash - NEUROLOGIC Neurologic: grossly normal, no motor/sensory deficits - PSYCHIATRIC Psych/Mental Status: normal thought content, normal thought process Progress - PLAN OF CARE/RESULTS Progress/Plan/Lab Results: Vital Signs - 8 hr 02/01/20 15:25 Temperature 98.1 F Pulse Rate 61 Respiratory Rate 18 Blood Pressure 151/73 O2 Sat by Pulse Oximetry 98 Laboratory Results - last 24 hr 02/01/20 02/01/20 02/01/20 15:46 15:46 15:46 WBC RBC Hgb Hct MCV MCH MCHC RDW Std Deviation Plt Count MPV Immature Gran % (Auto) Neut % (Auto) Lymph % (Auto) [place] % (Auto) Eos % (Auto) Baso % (Auto) Immature Gran # (Auto) Neut # (Auto) Lymph # (Auto) [place] # (Auto) Eos # (Auto) Baso # (Auto) PT INR PTT (Actin FS) Sodium 137 Potassium 4.8 Chloride 103 Carbon Dioxide 23 L Anion Gap 11 BUN 18 Creatinine 1.1 Estimated GFR/1.73 m2 > 60 BUN/Creatinine Ratio 16 Glucose 139 H POC Glucose Calculated Osmolality 278 Calcium 9.6 Total Bilirubin 2.73 H AST 385 H ALT 357 H Alkaline Phosphatase 296 H Creatine Kinase 21 L Troponin T High Sens 19 Zxe-N-Rskzafnieuy Pept 872 H Total Protein 6.4 Albumin 3.6 Globulin 2.8 Albumin/Globulin Ratio 1.3 Urine Source Urine Color Urine Turbidity Urine pH Ur Specific [place] Urine Protein Ur Glucose (Stick) Ur Ketones (Stick) Urine Blood Urine Nitrite Urine Bilirubin Urobilinogen Dipstick Urine Leukocytes 02/01/20 02/01/20 02/01/20 15:46 15:46 15:51 WBC 7.63 RBC 4.96 Hgb 13.3 L Hct 41.7 L MCV 84.1 MCH 26.8 L MCHC 31.9 L RDW Std Deviation 15.1 H Plt Count 164 MPV 12.5 H Immature Gran % (Auto) 0.0 Neut % (Auto) 65.5 Lymph % (Auto) 21.4 [place] % (Auto) 9.7 H Eos % (Auto) 3.1 Baso % (Auto) 0.3 Immature Gran # (Auto) 0.00 Neut # (Auto) 5.00 Lymph # (Auto) 1.63 [place] # (Auto) 0.74 H Eos # (Auto) 0.24 Baso # (Auto) 0.02 PT 17.6 H INR 1.42 PTT (Actin FS) 39.4 Sodium Potassium Chloride Carbon Dioxide Anion Gap BUN Creatinine Estimated GFR/1.73 m2 BUN/Creatinine Ratio Glucose POC Glucose 135 H Calculated Osmolality Calcium Total Bilirubin AST ALT Alkaline Phosphatase Creatine Kinase Troponin T High Sens [id number]-Qggxpvddjcq Pept Total Protein Albumin Globulin Albumin/Globulin Ratio Urine Source Urine Color Urine Turbidity Urine pH Ur Specific [place] Urine Protein Ur Glucose (Stick) Ur Ketones (Stick) Urine Blood Urine Nitrite Urine Bilirubin Urobilinogen Dipstick Urine Leukocytes 02/01/20 16:47 WBC RBC Hgb Hct MCV MCH MCHC RDW Std Deviation Plt Count MPV Immature Gran % (Auto) Neut % (Auto) Lymph % (Auto) [place] % (Auto) Eos % (Auto) Baso % (Auto) Immature Gran # (Auto) Neut # (Auto) Lymph # (Auto) [place] # (Auto) Eos # (Auto) Baso # (Auto) PT INR PTT (Actin FS) Sodium Potassium Chloride Carbon Dioxide Anion Gap BUN Creatinine Estimated GFR/1.73 m2 BUN/Creatinine Ratio Glucose POC Glucose Calculated Osmolality Calcium Total Bilirubin AST ALT Alkaline Phosphatase Creatine Kinase Troponin T High Sens Gzp-J-Mhmzjuthzyh Pept Total Protein Albumin Globulin Albumin/Globulin Ratio Urine Source CLEAN CATCH Urine Color YELLOW Urine Turbidity HAZY Urine pH 7.0 Ur Specific [place] 1.025 Urine Protein 100 A Ur Glucose (Stick) NEGATIVE Ur Ketones (Stick) NEGATIVE Urine Blood NEGATIVE Urine Nitrite NEGATIVE Urine Bilirubin NEGATIVE Urobilinogen Dipstick 4 A Urine Leukocytes NEGATIVE Orders Category Date Time Status Cardiac Monitoring DIRECTED Care 02/01/20 15:33 Active Oxygen Therapy- ED Nursing DIRECTED Care 02/01/20 15:33 Active Saline Loc NOW Care 02/01/20 15:33 Active CHEST-1 VIEW [RAD] Stat Exams 02/01/20 15:[address] ABD/PELVIS W/IV CONT ONLY [CT] Stat Exams 02/01/20 16:[address] HEAD W/O CONTRAST [CT] Stat Exams 02/01/20 16:00 Completed CBC WITH ELECTRONIC DIFF [HEME] Stat Lab 02/01/20 15:46 Completed CK PROFILE [SP CHEM] Stat Lab 02/01/20 15:46 Completed COMPREHENSIVE METABOLIC PANEL [CHEM] Stat Lab 02/01/20 15:46 Completed PRO B-NATRIURETIC PEPTIDE Stat Lab 02/01/20 15:46 Completed PROTIME WITH INR [COAG] Stat Lab 02/01/20 15:46 Completed PTT [COAG] Stat Lab 02/01/20 15:46 Completed TROPONIN T HIGH SENSITIVITY Stat Lab 02/01/20 15:46 Completed URINALYSIS W/POSS RFLX CULT [URINALYSIS] Stat Lab 02/01/20 16:47 Results URINE MANUAL MICROSCOPIC [URINALYSIS] Stat Lab 02/01/20 16:47 Results CP/SOB/Palp >45 yrs of Age Stat Oth 02/01/20 15:33 Ordered EKG [EKG] Stat Ther 02/01/20 15:33 Ordered Result Diagrams: 02/01/20 15:46 02/01/20 15:46 - REASSESSMENT Reassessment #1 Time Reassessed: 17:20 Status: unchanged (states feels a little better, but hasn't been walking around) - EKG 1 Time of EKG reading by physician:: 16:43 EKG Read and Signed by:: Kane Calhoun EKG Interpretation (*Must complete 3 of following elements*): Abnormal Rate: 59 Rhythm: sinus dangelo Weare: normal QRS: LBB, LVH WV Interval: normal ST Wave: non-specific ST changes - XRAY 1 XRAY Study: Chest Impression: See EMR Report (COMMENT: Compared to 09/28/2019 there has been no appreciable change. IMPRESSION: Stable chest.) Comparison with other Films: no changes - CT/MRI 1 CT Study: Head Impression: Abnormal, See EMR Report (IMPRESSION: Chronic ischemic changes which have progressed since 08/07/2018. No definite evidence of acute disease. Further evaluation with MRI may be desirable.) 2 CT Study: Abdomen, Pelvis Impression: Abnormal, Discussed w/Radiology (Per Radiology, Dr. Gaytan: Positive fatty liver, no SBO, no hydronephrosis, no acute abnormality) - CONSULTS/PCP/HOSPITALIST Notification #1 *Consult/PCP/Hospitalist*: MARCELINO Bobo Time Discussed: 17:22 Consult Disposition: Will see in ED, Admit - CHANGE OF SHIFT REPORT (ED Provider) 1 Report Given and Care Transferred to:: Lj Time of Transfer: 16:32 Items Pending: Labs Departure - Departure Date of Disposition Decision: 02/01/20 Time of Disposition Decision: 17:23 DIAGNOSIS: Near syncope, Elevated LFTs Disposition: ADMITTED INPATIENT 09 Certified Medical Emergency: Emergent Condition: Fair Referrals and Follow-Ups: UNKNOWN, [NON-STAFF PROVIDER] - - Critical Care Note This patient required my direct & personal management of CC.: No Attestation - Physician/ KAILASH Attestation Patient care was provided by Advanced Practice Provider:: Yes Advanced Practice Provider:: Ana M Briggs Advanced Practice Provider documentation review:: The Mid-level provider documentation, treatment plan and medical decision making was reviewed by the physician who agrees with all treatment and medical decision making by the MLP. The physician spent face to face time with patient:: Yes (Dr. Calhoun at bedside to discuss prognosis and need for admission) Advanced Practice Provider documentation review:: Supervising physician onsite and consulted in the evaluation and care of this patient. The physician did have a face to face encounter with the patient.
[2020-02-01 16:08] LABS: BASO# 0.02 X1000 (0.0-0.2); BASO% 0.3 % (0.0-0.8); EOS# 0.24 X1000 (0.0-0.7); EOS% 3.1 % (0.0-10.0); HEMATOCRIT 41.7 % (42.0-52.0); HEMOGLOBIN 13.3 g/dL (14.0-18.0); LYMPH# 1.63 X1000 (1.2-3.4); LYMPH% 21.4 % (20.5-51.1); MCH 26.8 PG (27-31); MCHC 31.9 g/dL (33-37); MCV 84.1 FL (81-99); MONO# 0.74 X1000 (0.11-0.59); MONO% 9.7 % (1.7-9.3); MPV 12.5 FL (7.4-10.4); NEUT% 65.5 % (42.2-75.2); PLT 164 X1000 (130-400); RBC 4.96 XMIL (4.7-6.1); RDW 15.1 % (11.5-14.5); WBC 7.63 X1000 (4.8-10.8)
--- NOTE | 2020-02-01 16:08 | Diag Imaging Result Doc PS360 ---
EXAM: CHEST-1 VIEW 02/01/2020 HISTORY: near syncope TECHNIQUE: AP portable at 1553 COMMENT: Compared to 09/28/2019 there has been no appreciable change. IMPRESSION: Stable chest. Electronically signed by Fredy Whittington 02/01/2020 4:06 PM
--- NOTE | 2020-02-01 16:24 | Diag Imaging Result Doc PS360 ---
EXAM: CT HEAD W/O CONTRAST 02/01/2020 HISTORY: weakness, on eliquis TECHNIQUE: This exam was performed using automated exposure control, adjustment of mA or kV according to patient size, and/or use of iterative reconstruction technique. COMMENT: There are calcifications in the internal carotid and left vertebral artery. There is moderate generalized cerebral atrophy. There is encephalomalacia in the medial portion of the superior left cerebellar hemisphere. There is no evidence of bleed or abnormal extra-axial fluid collection. There are are lacunar lucencies in the periventricular white matter of both frontal lobes and adjacent to the right caudate nucleus and in both globus pallidus. There is a lacune in the right thalamus. Compared to 08/07/2018 most of the ischemic and lacunar findings were not present previously. IMPRESSION: Chronic ischemic changes which have progressed since 08/07/2018. No definite evidence of acute disease. Further evaluation with MRI may be desirable. Electronically signed by Fredy Whittington 02/01/2020 4:21 PM
[2020-02-01 16:27] LABS: AGAP 11; ALB/GLOB RATIO 1.3; ALBUMIN 3.6 g/dL (3.5-5.0); ALKALINE PHOSPHATASE 296 U/L (32-122); BUN 18 mg/dL (8-22); CALCIUM 9.6 mg/dL (8.8-10.2); CHLORIDE 103 mmol/L (98-107); CK PROFILE 21 U/L (24-204); COSMO 278; CREATININE 1.1 mg/dL (0.7-1.2); ESTIMATED GFR > 60; GLUCOSE 139 mg/dL (70-104); GOT 385 U/L (10-34); GPT 357 U/L (10-44); POTASSIUM 4.8 mmol/L (3.5-5.1); SODIUM 137 mmol/L (136-145); TCO2 23 mmol/L (25-35); TOTAL BILIRUBIN 2.73 mg/dL (0.20-1.00); TOTAL PROTEIN 6.4 g/dL (6.3-8.3)
[2020-02-01 16:30] LABS: INR 1.42; PROTIME 17.6 Seconds (11.0-16.0)
[2020-02-01 16:31] LABS: PTT 39.4 Seconds (22.3-41.8)
[2020-02-01 16:50] LABS: URINE SOURCE CLEAN CATCH
[2020-02-01 17:11] LABS: BILIRUBIN URINE NEGATIVE (NEGATIVE); BLOOD URINE NEGATIVE (NEGATIVE); COLOR YELLOW; GLUCOSE URINE NEGATIVE (NEGATIVE); KETONE URINE NEGATIVE (NEGATIVE); LEUKOCYTES URINE NEGATIVE (NEGATIVE); NITRITE URINE NEGATIVE (NEGATIVE); PROTEIN URINE 100 mg/dL (NEGATIVE); SP GRAVITY URINE 1.025; TURBIDITY URINE HAZY (CLEAR); UROBILINOGEN URINE 4 mg/dL (NORMAL)
--- NOTE | 2020-02-01 17:21 | Diag Imaging Result Doc PS360 ---
EXAM: CT ABD/PELVIS W/IV CONT ONLY HISTORY: evaluate for jaundice, elevated LFTs TECHNIQUE: CT abdomen and pelvis with intravenous contrast, but without oral contrast. COMPARISON: 03/12/2019 FINDINGS: Tiny right effusion with pleural thickening similar to the prior exam. The gallbladder has been removed. There is mild fatty infiltration of the liver. No splenomegaly. Normal pancreas and adrenal glands. Tiny nonobstructing right lower pole renal stone. There are scattered renal cysts. No hydronephrosis. Severe atherosclerosis. No aortic aneurysm. No bowel obstruction. The scattered colonic diverticula. Normal appendix. No abscess. Urinary bladder is only mildly distended. The prostate is not enlarged. Old injury to the pelvis. IMPRESSION: 1.Fatty infiltration of the liver 2.Cholecystectomy 3.Severe atherosclerosis 4.Nonobstructing right renal stone with scattered renal cysts 5.Colonic diverticulosis This exam was performed using automated exposure control, adjustment of mA or kV according to patient size, and/or use of iterative reconstruction technique. Electronically signed by Art Gaytan 02/01/2020 5:19 PM
[2020-02-01 17:46] LABS: UR EPITHELIAL CELLS <10 /HPF (<10); URINE BACTERIA NEGATIVE /HPF; URINE RBC <10 /HPF (<10)
[2020-02-01 18:26] LABS: URINE CASTS NONE SEEN; URINE CRYSTALS CA OXALATE PRESENT; URINE YEAST NONE SEEN
[2020-02-01] MEDS: NS 1,000 ML IV SCH (18:30)
[2020-02-01] MEDS ORDERED: ZOFRAN IV PRN (21:16)
--- NOTE | 2020-02-01 23:21 | HISTORY AND PHYSICAL ---
PRIMARY CARE PHYSICIAN: Abiola Madera MD. GLOVE TAGGER: Wallace Luz MD. PRESENTING COMPLAINT: Near-syncope. HISTORY OF PRESENT COMPLAINT: Mr. Kathleen is an 85-year-old gentleman with a history of coronary artery disease, atrial fibrillation, dyslipidemia, diabetes, hypertension, status post aortic valve replacement, he refers that for the past couple days he has just been feeling low and weak, but yesterday he felt pretty good. This morning, he felt slightly weak and he thought he could not take a shower by himself so, after lunch at noon, he sat on the bedside commode and the gave him sponge bath. That took about 20 minutes. After that he stood up, immediately when he stood up he felt dizzy, he felt like he was going to black out, so he sat down immediately. According to him, the thought that he looked pale and that he was sweaty. They called their other son, who came and called EMS and he was brought in here. Upon presentation, he was evaluated. His vitals for most part remained stable, but he has been admitted for observation due to near-syncopal episode. PAST MEDICAL HISTORY: 1. Atrial fibrillation. 2. Coronary artery disease. 3. Severe aortic valvulopathy status post valve replacement. 4. Diabetes mellitus. 5. Dyslipidemia. 6. Cholecystectomy. 7. Aortic valve replacement with tissue valve. 8. Bilateral stents to kidneys in 2006. 9. Pelvic repair from pelvic fractures. FAMILY HISTORY: Positive for diabetes and coronary artery disease. SOCIAL HISTORY: Patient lives in [place] with a spouse. Denies any smoking. No alcohol. No illicit drugs. ALLERGIES: To niacin. HOME MEDICATIONS: Have not be updated yet. However, in his chart, he seems to be on: 1. Eliquis 5 mg b.i.d. 2. Amlodipine 5 mg daily. 3. Losartan 100 mg p.o. daily. 4. Carvedilol 12.5 b.i.d. 5. Losartan 100 mg p.o. daily. REVIEW OF SYSTEM: A 12-point review of system conducted with Mr. Kathleen, unremarkable except what we have in the HPI. Mr. Kathleen denies any chest pain or shortness of breath. No abdominal pain. No diarrhea. No urinary symptoms. He denies any fever. PHYSICAL EXAMINATION: VITAL SIGNS: Blood pressure is 151/73, pulse of 61, respiration is 18, temperature 98.1 degrees. GENERAL: Mr. Kathleen is an 84-year-old elderly gentleman, he is in bed. He is not in any cardiopulmonary distress. HEENT: Mucosa is pink but slightly dry. Anicteric. Acyanotic. Head is normocephalic, atraumatic. NECK: Supple. There is no meningeal signs. No carotid bruit. Trachea is midline. No thyromegaly. RESPIRATORY: There is good air entry bilaterally. There was no crepitations, no rhonchi. No accessory muscle use. CARDIOVASCULAR: Regular rate and rhythm. I did not hear any murmurs, no gallops. [place] beat is at 5th intercostal space, midclavicular line. GASTROINTESTINAL: Abdomen is soft, some laparoscopic scars on the anterior abdominal wall. Otherwise, no hepatosplenomegaly. EXTREMITIES: No pedal edema. 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 There is no motor deficit. Power is 5/5 in the extremities. No sensation deficit. Cranial nerves 2-12 have been grossly examined and they are unremarkable. PSYCHIATRY: Mr. Kathleen is very cordial, good judgment and understanding. He a normal mood and affect congruent. LABORATORY DATA: CBC show mild hemoconcentration. Chemistry for most part is unremarkable except elevated liver enzymes. ProBNP is minimally elevated. IMAGING STUDIES: 1. A chest x-ray shows no appreciable change. 2. A CT scan of the head shows chronic ischemic changes which have progressed since 2018. There is no definite evidence of acute disease. 3. A CT scan of the abdomen and pelvis shows fatty infiltration of the liver, cholecystitis, severe atherosclerosis, nonobstructing right renal stone with scattered renal cyst. There is colonic diverticulosis. ASSESSMENT: 1. Near-syncope at home, most likely due to vasovagal reaction. However, an orthostatic hypotension cannot be entirely ruled out. We are going to check his orthostatic vitals. 2. Mild clinical volume depletion. We will start the patient on gentle hydration overnight. 3. Transaminitis with imaging studies suggestive of fatty liver. This could be steatohepatitis. We will get hepatitis panel to rule out any viral course. 4. Uncontrolled hypertension. The patient's home medication will be started back. 5. History of paroxysmal atrial fibrillation, currently rate controlled. We will start the patient back on his carvedilol. It appears that his diltiazem has been discontinued by his funeral limousine driver. PLAN: In general, Mr. Kathleen is fairly stable. We are going to admit him under observation. Check his orthostatic vitals now and repeat it tomorrow morning. Gently hydrate him overnight. Restart him back on his home medicines and re-evaluate him tomorrow morning and go from there. So far, his EKG did not show any acute abnormalities. We will repeat it again tomorrow morning. cc: MD Abiola Tom MD
--- NOTE | 2020-02-02 06:13 | GENERAL SURGERY CONSULTATION ---
DATE: 02/02/2020 REQUESTING PHYSICIAN: Hospitalist. REASON FOR CONSULTATION: Carotid artery disease. HISTORY OF PRESENT ILLNESS: An 84-year-old gentleman who came with a near syncopal episode while trying to have a bowel movement. It sounds essentially almost vasovagal. Regardless, he was brought into the emergency department, and had a CT scan that showed chronic changes but no acute issue. He previously back in November had a carotid ultrasound study that showed some degree of stenosis with the stenosis reported on the left side of 60 to 79 percent. The patient is doing fine at this moment, has no other issues except his liver function tests were slightly elevated. He had a CT scan which really only showed fatty liver disease. I was asked to weigh an opinion on his carotid disease. He is currently without any complaints. 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 PAST SURGICAL HISTORY: Includes cholecystectomy, aortic valve replacement, bilateral stents to the kidneys, and pelvic repair. FAMILY HISTORY: Positive for diabetes and coronary artery disease. SOCIAL HISTORY: Denies alcohol, tobacco, or illicit drugs. ALLERGIES: Niacin. HOME MEDICATIONS: Of note, he is on Eliquis. REVIEW OF SYSTEMS: Full 14 systems reviewed, and negative except as specified in HPI. PHYSICAL EXAMINATION: Vital Signs: Patient is currently afebrile. Vital signs stable. General: No acute distress. HEENT: Normocephalic, atraumatic. Pupils equal, round, and reactive to light. Mucous membranes moist. Oropharynx benign. Neck: Supple. Trachea midline. Cardiovascular: Regular rate and rhythm. Lungs: Grossly clear. Abdomen: Soft, nontender, and nondistended. Extremities: Moves all extremities. Neurologic: Grossly intact. No focal deficits. Hands and facial expressions are equal bilaterally. Skin: No signs of jaundice. Vascular: All extremities perfused. LABORATORY: Reviewed. Of note, his bilirubin is 2.73, AST, ALT and alkaline phosphatase are all slightly elevated. Amylase and lipase not measured. IMAGING: Noted. ASSESSMENT AND PLAN: An 84-year-old gentleman with carotid artery disease. 1. Carotid artery disease. At this time, I do not think he has had an acute issue. I think his syncopal episode was more vasovagal. I would recommend him seeing us in the office for follow- up with either myself or Dr. Walker. 2. Elevated liver function tests. At this time, CT scan is normal. Would like to see what they trend. 3. Syncopal episode. At this time, I do not think it is related to his carotids. Orthostatics were normal and it sounded more vasovagal, but we will continue to monitor. cc: Mic Alonzo MD
[2020-02-02] MEDS ORDERED: VITAMIN D PO SCH (09:00)
[2020-02-02] MEDS ORDERED: COZAAR PO SCH (09:00)
[2020-02-02] MEDS ORDERED: ELIQUIS PO SCH (09:00)
[2020-02-02] MEDS ORDERED: CARVEDILOL 50 MG PO SCH (09:00)
[2020-02-02] MEDS ORDERED: NORVASC PO SCH (09:00)
--- NOTE | 2020-02-02 09:06 | EKG Report ---
Test Performed on : 02/02/2020 08:36:49 AM Test Reason : syncope Blood Pressure : / mmHG Vent. Rate : 075 BPM Atrial Rate : 075 BPM P-R Int : 180 ms QRS Dur : 076 ms QT Int : 400 ms P-R-T Axes : 052 015 076 degrees QTc Int : 446 ms Normal sinus rhythm. Nonspecific ST and T wave abnormality Abnormal ECG When compared with ECG of 01-FEB-2020 16:38, (Unconfirmed) No significant change was found Unconfirmed Result
--- NOTE | 2020-02-02 09:08 | EKG Report ---
Test Performed on : 02/01/2020 4:38:07 PM Test Reason : near syncope Blood Pressure : / mmHG Vent. Rate : 059 BPM Atrial Rate : 059 BPM P-R Int : 188 ms QRS Dur : 078 ms QT Int : 454 ms P-R-T Axes : 022 022 073 degrees QTc Int : 449 ms Sinus bradycardia. Nonspecific T wave abnormality Abnormal ECG When compared with ECG of 28-SEP-2019 11:09, No significant change was found Unconfirmed Result
[2020-02-02] MEDS: NS 1,000 ML IV SCH (09:26)
[2020-02-02 09:53] LABS: AGAP 10; ALBUMIN 3.5 g/dL (3.5-5.0); ALKALINE PHOSPHATASE 298 U/L (32-122); BUN 14 mg/dL (8-22); CHLORIDE 102 mmol/L (98-107); COSMO 280; CREATININE 0.9 mg/dL (0.7-1.2); ESTIMATED GFR > 60; GLUCOSE 142 mg/dL (70-104); GOT 155 U/L (10-34); GPT 283 U/L (10-44); POTASSIUM 3.5 mmol/L (3.5-5.1); SODIUM 139 mmol/L (136-145); TCO2 27 mmol/L (25-35); TOTAL BILIRUBIN 1.79 mg/dL (0.20-1.00); TOTAL PROTEIN 6.9 g/dL (6.3-8.3)
[2020-02-02] MEDS ORDERED: COREG PO SCH (12:00)
[2020-02-02 12:55] VITALS: BP 178/84
--- NOTE | 2020-02-02 20:13 | DISCHARGE SUMMARY ---
ADMISSION DATE: 02/01/2020 DISCHARGE DATE: 02/02/2020 DISPOSITION: Home. FOLLOWUP: 1. Grecia Cabrera MD. 2. Mic Alonzo MD. CONSULTATIONS DURING THIS ADMISSION: None. INVASIVE PROCEDURES DONE DURING THIS ADMISSION: None. IMAGING STUDIES OF SIGNIFICANCE: 1. A chest x-ray was stable. 2. CT scan of the head showed chronic ischemic changes. 3. A CT scan of the abdomen and pelvis showed fatty liver disease, severe atherosclerosis, colonic diverticulosis. ADMISSION DIAGNOSES: 1. Near-syncope at home. 2. Mild clinical volume depletion. 3. Transaminitis. 4. Uncontrolled hypertension. DIAGNOSES AT THE TIME OF DISCHARGE: 1. Near syncopal episode secondary to vasovagal reaction, resolved. 2. Mild clinical volume depletion, improved. 3. Fatty liver disease with steatohepatitis. 4. Uncontrolled hypertension, improved. 5. History of paroxysmal atrial fibrillation. The patient follows up with Dr. Luz. DISCHARGE MEDICATIONS: 1. Apixaban 5 mg b.i.d. 2. Vitamin D. 3. Losartan 100 mg p.o. daily. 4. Amlodipine 5 mg p.o. daily. 5. Coreg 25 mg b.i.d. 6. Famotidine 20 mg p.o. daily. 7. Metformin 500 b.i.d. MEDICATION THAT WAS DISCONTINUED: Dramamine 50 mg b.i.d. p.r.n. The patient was unsure what this was for and since it can potentially also cause a lot of side effects in the elderly I have advised that he discontinue this, at least for now until he discusses it with his primary care physician. PRESENTING COMPLAINT: Near syncope. HISTORY OF PRESENT COMPLAINT: Mr. Kathleen is an 84-year-old, male who presented to the emergency room after he suffered a near syncopal episode. According to Mr. Kathleen, he was sitting on the bedside commode trying to use the bathroom, and at the same time the was giving him a sponge bath. After about 20 minutes he stood up and immediately after standing up he felt like he was almost going to pass out, so he sat down. called the EMS and he was brought to the emergency room and was admitted for observation. HOSPITAL COURSE: Mr. Kathleen was admitted to the medical floor. Initially orthostatic vitals were done which were not significant. His presenting symptoms and investigations were all consistent with possible vasovagal reaction. He was gently hydrated overnight and this morning he refers to be feeling a whole lot better, denies any more syncopal episode. We did not find any major abnormalities on his laboratory data. His troponin was unremarkable on admission. EKG was also unremarkable. He had mildly elevated liver enzymes, which were trending down. His CT scan did show fatty liver. I have advised that he follow up with his GI doctor, in this case Dr. Cabrera, for further medical care. All of the discharge instructions have been discussed with him. He voiced understanding. I also spoke with the and updated him. Discussed the discharge instructions with her as well and she voiced understanding. Time spent for discharge is 35 minutes. cc: Mario Brown MD
[2020-02-02] MEDS ORDERED: PEPCID PO SCH (21:00)
--- NOTE | 2020-02-02 23:02 | ECHO REPORT ---
ORDER DATE: 02/02/2020 INDICATION: Near syncope. The patient has a history of aortic valve replacement with a bioprosthetic valve. M-MODE MEASUREMENTS: Left ventricle end diastole: 3.9. Left ventricle end systole: 2.5. Posterior wall: 1.0. Interventricular septum: 1.0. Left atrium: 3.7. Aortic diameter: 2.8. SUMMARY OF 2-DIMENSIONAL IMAGIN. Left ventricular function is normal. Ejection fraction is 69%. 2. The aortic valve is a bioprosthetic valve. Maximum gradient across the valve is 19 mm, and mean gradient is 9 mm. That is normal function. Color flow mapping unremarkable. The valve is well seated. 3. The inferior vena cava is at the upper limits of normal. 4. The tricuspid valve shows a moderate degree of regurgitation. Pulmonary pressure is estimated at 35 mmHg. 5. The pulmonic valve looks grossly normal. 6. The mitral annulus and the leaflets of the mitral valve are densely calcified, with restricted opening. Maximum gradient across this valve is 10 mm. Mean gradient is 7 mm. That would be consistent with a mild degree of mitral stenosis. Color flow mapping indicates a mild degree of regurgitation. 7. The valve and the annulus are heavily calcified. 8. The right-sided chambers appear to be normal. 9. The left atrium is probably at the upper limits of normal. 10.There is no pericardial effusion, no mass, and no thrombus. Clinical correlation recommended. cc: Jaleel Carmona MD MTDD
[2020-02-03 12:56] LABS: HEPATITIS PROFILE ACUTE SEE COMMENTS
== END 2020-02-02 14:48 | disposition home or self-care (01) | DRG 312 ==
LOC: SUPCPDRO → ED 15:06 → 3N 20:40
PROVIDERS: ATTEND Internal Medicine